=== PATIENT | female | born 1940 | race Caucasian/White ===

== ENCOUNTER → 2016-10-19 | Outpatient (REF) | payer MEDICARE, OTHER ==
[~2016-10-19] MED LIST: ASPI1TAB PO; CALCTAB23 PO; CELE1CAP9 PO; FLUO20CA9 PO; IMIP50TA2 PO; LIOT5TAB PO; PERC5TAB6 PO; SYNT50TA PO; VITA20008 PO; ZOCO40TA PO
== END ==
LOC: M SFHCPLAZ 10:35
PROVIDERS: ATTEND Family Medicine
DX: E55.9 Vitamin D deficiency, unspecified (principal)

== ENCOUNTER → 2017-03-13 | Outpatient (REF) | payer MEDICARE, OTHER ==
[~2017-03-13] MED LIST changes: +CALC1TAB60 PO; -CALCTAB23 PO; +FLUO20CA19 PO; -FLUO20CA9 PO; -IMIP50TA2 PO; +IMIP50TA3 PO; +PERC5TAB12 PO; -PERC5TAB6 PO
[2017-03-13 11:54] LABS: BASO # 0.1 K/mm3 (0.0-0.2); EOS # 0.5 K/mm3 (0.0-0.50); EOS % 8.3 % (0.0-3.0); LARGE UNSTAINED CELL # 0.1 K/mm3 (0.0-0.4); LARGE UNSTAINED CELL % 1.5 % (0.0-4.0); LYMPH # 1.4 K/mm3 (1.5-4.5); LYMPH % 24.4 % (24.0-44.0); MEAN CORPUSCULAR HEMOGLOBIN 29.2 pg (27.0-33.0); MEAN CORPUSCULAR HGB CONC 31.8 g/dl (32.0-36.5); MEAN CORPUSCULAR VOLUME 91.7 fl (80.0-96.0); MONO # 0.2 K/mm3 (0.0-0.8); MONO % 4.1 % (0.0-5.0); NEUTROPHILS # 3.4 K/mm3 (1.8-7.7); NEUTROPHILS % 60.6 % (36.0-66.0); PLATELET COUNT, AUTOMATED 271 k/mm3 (150-450); RED CELL DISTRIBUTION WIDTH 13.1 % (11.5-14.5); WHITE BLOOD COUNT 5.6 K/mm3 (4.0-10.0)
[2017-03-13 12:22] LABS: VITAMIN B12 LEVEL 322 PG/ML (247-911)
[2017-03-13 12:27] LABS: ALBUMIN 3.6 GM/DL (3.2-5.2); ALBUMIN/GLOBULIN RATIO 1.24 (1.00-1.93); ALKALINE PHOSPHATASE 111 U/L (45-117); ALT/SGPT 34 U/L (12-78); ANION GAP 8 MEQ/L (8-16); AST/SGOT 22 U/L (15-37); BILIRUBIN,TOTAL 0.4 MG/DL (0.2-1.0); BLOOD UREA NITROGEN 14 MG/DL (7-18); CALCIUM LEVEL 9.3 MG/DL (8.8-10.2); CARBON DIOXIDE LEVEL 31 MEQ/L (21-32); CHLORIDE LEVEL 102 MEQ/L (98-107); CREATININE FOR GFR 0.64 MG/DL (0.55-1.02); FREE T4 0.69 NG/DL (0.76-1.46); GLOMERULAR FILTRATION RATE > 60.0 (>39); GLUCOSE, FASTING 91 MG/DL (83-110); POTASSIUM SERUM 4.3 MEQ/L (3.5-5.1); SODIUM LEVEL 141 MEQ/L (136-145); TOTAL PROTEIN 6.5 GM/DL (6.4-8.2)
== END ==
LOC: M SFHCPLAZ 10:09
PROVIDERS: ATTEND Family Medicine
DX: E55.9 Vitamin D deficiency, unspecified (principal); E03.9 Hypothyroidism, unspecified; F32.9 Major depressive disorder, single episode, unspecified

== ENCOUNTER → 2017-05-29 | Outpatient (REF) | payer MEDICARE, OTHER ==
[2017-05-29 16:01] LABS: BASO # 0.1 10^3/uL (0.0-0.2); BASO % 0.9 % (0.0-1.0); EOS # 0.3 10^3/uL (0.0-0.50); EOS % 4.5 % (0.0-3.0); IMMATURE GRANULOCYTE % 0.3 % (0-0); LYMPH # 1.4 10^3/uL (1.5-4.5); LYMPH % 20.8 % (24.0-44.0); MEAN CORPUSCULAR HEMOGLOBIN 29.7 pg (27.0-33.0); MEAN CORPUSCULAR VOLUME 92.9 fl (80.0-96.0); MONO # 0.5 10^3/uL (0.0-0.8); MONO % 7.3 % (0.0-5.0); NEUTROPHILS # 4.5 10^3/uL (1.8-7.7); NEUTROPHILS % 66.2 % (36.0-66.0); PLATELET COUNT, AUTOMATED 324 10^3/uL (150-450); RED CELL DISTRIBUTION WIDTH 13.5 % (11.5-14.5); WHITE BLOOD COUNT 6.7 10^3/uL (4.0-10.0)
[2017-05-29 16:34] LABS: FREE T4 0.96 NG/DL (0.76-1.46); PERCENT SATURATION 23.6 % (13.2-45.0)
[2017-05-30 10:41] LABS: PRETREATED FOLATE FOR RBCFOL 19.2 NG/ML
== END ==
LOC: M SFHCPLAZ 10:49
PROVIDERS: ATTEND Family Medicine
DX: E53.8 Deficiency of other specified B group vitamins (principal); E03.9 Hypothyroidism, unspecified; E78.2 Mixed hyperlipidemia

== ENCOUNTER → 2017-07-13 | Outpatient (CLI) | payer MEDICARE, OTHER ==
--- NOTE | 2017-07-13 16:13 | REPMRS ---
Patient History The patient states she has not had a clinical breast exam in over a year. Patient is postmenopausal and is nulliparous. Family history of endometrial cancer in maternal cousin at age 60. Digital Woman Screen Mammo: July 13, 2017 - Exam #: [id number] Bilateral CC and MLO view(s) were taken. Technologist: Ariadna Batista, Technologist Prior study comparison: June 23, 2016, digital woman screen mammo performed at [facility]. June 17, 2015, digital woman screen mammo performed at [facility]. June 23, 2014, digital woman screen mammo performed at [facility]. FINDINGS: There are scattered fibroglandular densities. There is a moderate amount of residual fibroglandular tissue which is fairly symmetric. There is no interval development of dominant mass, architectural distortion, or clustered microcalcification typical of malignancy. There has been no change in the appearance of the mammogram from the prior studies. ASSESSMENT: BI-RADS/ACR category 1 mammogram. Negative. Recommendation Routine screening mammogram of both breasts in 1 year (for women over age 40). This mammogram was interpreted with the aid of an FDA-approved computer-aided dectection system. Electronically Signed By: Geoff Hawkins MD 07/13/17 [id number]
== END ==
LOC: M WHC 14:55
PROVIDERS: ATTEND Family Medicine
DX: Z12.31 Encounter for screening mammogram for malignant neoplasm of breast (principal)

== ENCOUNTER → 2017-11-16 | Outpatient (REF) | payer MEDICARE, OTHER ==
[2017-11-16 15:45] LABS: BASO # 0.1 10^3/uL (0.0-0.2); BASO % 0.8 % (0.0-1.0); EOS # 0.9 10^3/uL (0.0-0.50); HEMATOCRIT 41.5 % (36.0-47.0); HEMOGLOBIN 13.3 g/dl (12.0-15.5); IMMATURE GRANULOCYTE % 0.2 % (0-3.0); LYMPH # 1.4 10^3/uL (1.5-4.5); LYMPH % 20.6 % (24.0-44.0); MEAN CORPUSCULAR HEMOGLOBIN 29.2 pg (27.0-33.0); MONO # 0.4 10^3/uL (0.0-0.8); MONO % 6.6 % (0.0-5.0); NEUTROPHILS # 3.9 10^3/uL (1.8-7.7); NEUTROPHILS % 58.8 % (36.0-66.0); PLATELET COUNT, AUTOMATED 321 10^3/uL (150-450); RED BLOOD COUNT 4.56 10^6/uL (4.00-5.40); RED CELL DISTRIBUTION WIDTH 13.4 % (11.5-14.5); WHITE BLOOD COUNT 6.6 10^3/uL (4.0-10.0)
[2017-11-16 16:13] LABS: PTH INTACT 53.3 PG/ML (18.5-88.0); TOTAL 25(OH) VITAMIN D 49.2 NG/ML (30.0-100.0)
[2017-11-16 16:19] LABS: ALBUMIN 3.6 GM/DL (3.2-5.2); ALKALINE PHOSPHATASE 124 U/L (45-117); ALT/SGPT 33 U/L (12-78); ANION GAP 5 MEQ/L (8-16); AST/SGOT 22 U/L (7-37); BILIRUBIN,TOTAL 0.4 MG/DL (0.2-1.0); BLOOD UREA NITROGEN 18 MG/DL (7-18); CALCIUM LEVEL 9.2 MG/DL (8.8-10.2); CARBON DIOXIDE LEVEL 32 MEQ/L (21-32); CHLORIDE LEVEL 107 MEQ/L (98-107); CREATININE FOR GFR 0.58 MG/DL (0.55-1.30); FERRITIN 61 NG/ML (8-252); FREE T4 0.84 NG/DL (0.76-1.46); GLOMERULAR FILTRATION RATE > 60.0 (>39); GLUCOSE, FASTING 90 MG/DL (70-100); IRON (FE) 95 UG/DL (50-170); POTASSIUM SERUM 4.4 MEQ/L (3.5-5.1); SODIUM LEVEL 144 MEQ/L (136-145); THYROID STIMULATING HORMONE 0.614 uIU/ML (0.358-3.740); TOTAL IRON BINDING CAPACITY 352 UG/DL (250-450); TOTAL PROTEIN 6.6 GM/DL (6.4-8.2)
[2017-11-25 09:47] LABS: DESIPRAMINE 179 ng/mL (Not Estab.); IMIPRAMINE 232 ng/mL (Not Estab.); TOTAL IMIPRAMINE 411 ng/mL (175-300)
== END ==
LOC: M SFHCPLAZ 10:45
DX: E53.8 Deficiency of other specified B group vitamins (principal); E55.9 Vitamin D deficiency, unspecified; E03.9 Hypothyroidism, unspecified; F32.9 Major depressive disorder, single episode, unspecified
CPT/HCPCS: 83550

== ENCOUNTER → 2018-03-05 | Outpatient (REF) | payer MEDICARE, OTHER ==
[2018-03-05 13:57] LABS: BASO # 0.1 10^3/uL (0.0-0.2); BASO % 0.8 % (0.0-1.0); EOS # 0.7 10^3/uL (0.0-0.50); HEMATOCRIT 43.8 % (36.0-47.0); HEMOGLOBIN 14.1 g/dl (12.0-15.5); IMMATURE GRANULOCYTE % 0.3 % (0-3.0); LYMPH # 1.7 10^3/uL (1.5-4.5); LYMPH % 22.4 % (24.0-44.0); MEAN CORPUSCULAR HEMOGLOBIN 28.8 pg (27.0-33.0); MEAN CORPUSCULAR HGB CONC 32.2 g/dl (32.0-36.5); MEAN CORPUSCULAR VOLUME 89.6 fl (80.0-96.0); MONO # 0.5 10^3/uL (0.0-0.8); MONO % 6.2 % (0.0-5.0); NEUTROPHILS # 4.6 10^3/uL (1.8-7.7); NEUTROPHILS % 61.3 % (36.0-66.0); PLATELET COUNT, AUTOMATED 326 10^3/uL (150-450); RED BLOOD COUNT 4.89 10^6/uL (4.00-5.40); RED CELL DISTRIBUTION WIDTH 13.5 % (11.5-14.5); RETIC HEMOGLOBIN EQUIVALENT 33.7 pg (24-36); RETICULOCYTE # 95.8 10^9/L (17-77); WHITE BLOOD COUNT 7.4 10^3/uL (4.0-10.0)
[2018-03-05 14:03] LABS: HEMATOCRIT 43.8 % (36.0-47.0)
[2018-03-05 14:36] LABS: VITAMIN B12 LEVEL > 2000 PG/ML (247-911)
[2018-03-05 14:41] LABS: FREE T4 0.77 NG/DL (0.76-1.46)
[2018-03-06 11:41] LABS: PRETREATED FOLATE FOR RBCFOL 19.7 NG/ML; RBC FOLATE 944.5 NG/ML (280-791)
[2018-03-08 00:09] LABS: DESIPRAMINE 211 ng/mL (Not Estab.); IMIPRAMINE 313 ng/mL (Not Estab.); TOTAL IMIPRAMINE 524 ng/mL (175-300)
== END ==
LOC: M SFHCPLAZ 11:22
DX: E53.8 Deficiency of other specified B group vitamins (principal); E03.9 Hypothyroidism, unspecified; F32.9 Major depressive disorder, single episode, unspecified
CPT/HCPCS: 84443

== ENCOUNTER → 2018-07-23 | Outpatient (REF) | payer MEDICARE, OTHER ==
[2018-07-23 13:31] LABS: BASO # 0.1 10^3/uL (0.0-0.2); EOS # 0.5 10^3/uL (0.0-0.50); EOS % 7.3 % (0.0-3.0); HEMATOCRIT 43.5 % (36.0-47.0); HEMOGLOBIN 14.3 g/dl (12.0-15.5); IMMATURE GRANULOCYTE % 0.2 % (0-3.0); LYMPH # 1.5 10^3/uL (1.5-4.5); LYMPH % 24.1 % (24.0-44.0); MEAN CORPUSCULAR HEMOGLOBIN 29.7 pg (27.0-33.0); MEAN CORPUSCULAR HGB CONC 32.9 g/dl (32.0-36.5); MEAN CORPUSCULAR VOLUME 90.4 fl (80.0-96.0); MONO # 0.4 10^3/uL (0.0-0.8); MONO % 6.8 % (0.0-5.0); NEUTROPHILS # 3.7 10^3/uL (1.8-7.7); NEUTROPHILS % 60.6 % (36.0-66.0); PLATELET COUNT, AUTOMATED 329 10^3/uL (150-450); RED BLOOD COUNT 4.81 10^6/uL (4.00-5.40); RETIC HEMOGLOBIN EQUIVALENT 33.6 pg (24-36); RETICULOCYTE # 98.1 10^9/L (17-77); WHITE BLOOD COUNT 6.2 10^3/uL (4.0-10.0)
[2018-07-23 13:47] LABS: ALBUMIN 3.4 GM/DL (3.2-5.2); ALBUMIN/GLOBULIN RATIO 1.06 (1.00-1.93); ALKALINE PHOSPHATASE 108 U/L (45-117); ALT/SGPT 26 U/L (12-78); ANION GAP 7 MEQ/L (8-16); AST/SGOT 21 U/L (7-37); BILIRUBIN,TOTAL 0.5 MG/DL (0.2-1.0); BLOOD UREA NITROGEN 17 MG/DL (7-18); C REACTIVE PROTEIN QUANTITATIV < 0.30 MG/DL (0.00-0.30); CARBON DIOXIDE LEVEL 29 MEQ/L (21-32); CHLORIDE LEVEL 104 MEQ/L (98-107); CHOLESTEROL LEVEL 180 MG/DL (<200); CPK CREATINE PHOSPHOKINASE 49 U/L (26-192); CREATININE FOR GFR 0.64 MG/DL (0.55-1.30); GLOMERULAR FILTRATION RATE > 60.0 (>32); GLUCOSE, FASTING 93 MG/DL (70-100); HDL CHOLESTEROL 59 MG/DL (>40); LDL CHOLESTEROL 106 MG/DL (<100); NON-HDL-C 121 MG/DL; POTASSIUM SERUM 4.7 MEQ/L (3.5-5.1); SODIUM LEVEL 140 MEQ/L (136-145); TOTAL PROTEIN 6.6 GM/DL (6.4-8.2); TRIGLYCERIDES LEVEL 73 MG/DL (<150)
== END ==
LOC: M SFHCPLAZ 11:04
DX: E53.8 Deficiency of other specified B group vitamins (principal); E78.2 Mixed hyperlipidemia; E55.9 Vitamin D deficiency, unspecified
CPT/HCPCS: 82550

== ENCOUNTER 2018-11-03 12:04 | Emergency (ER) | payer MEDICARE, OTHER ==
[~2018-11-03] VITALS: Ht 152.4 cm; Wt 65.5 kg
[2018-11-03] MEDS ORDERED: LORA0.5T11 PO (12:13)
[2018-11-03] MEDS ORDERED: ONDANSETRON 4MG/2ML VIAL (J2405) IV ONE (12:45)
[2018-11-03] MEDS ORDERED: NS 1,000 ML IV ONE (12:45)
[2018-11-03 13:01] LABS: BASO % 0.1 % (0.0-1.0); HEMATOCRIT 39.8 % (36.0-47.0); HEMOGLOBIN 13.5 g/dl (12.0-15.5); LYMPH # 0.4 10^3/uL (1.5-4.5); LYMPH % 5.5 % (24.0-44.0); MEAN CORPUSCULAR HEMOGLOBIN 29.8 pg (27.0-33.0); MEAN CORPUSCULAR HGB CONC 33.9 g/dl (32.0-36.5); MEAN CORPUSCULAR VOLUME 87.9 fl (80.0-96.0); MONO # 0.2 10^3/uL (0.0-0.8); NEUTROPHILS # 7.3 10^3/uL (1.8-7.7); NEUTROPHILS % 90.9 % (36.0-66.0); PLATELET COUNT, AUTOMATED 277 10^3/uL (150-450); RED BLOOD COUNT 4.53 10^6/uL (4.00-5.40)
[2018-11-03 13:31] LABS: ALBUMIN 3.1 GM/DL (3.2-5.2); ALT/SGPT 22 U/L (12-78); BILIRUBIN,DIRECT 0.1 MG/DL (0.0-0.2); BILIRUBIN,TOTAL 0.5 MG/DL (0.2-1.0); BLOOD UREA NITROGEN 24 MG/DL (7-18); CALCIUM LEVEL 8.4 MG/DL (8.8-10.2); CARBON DIOXIDE LEVEL 26 MEQ/L (21-32); CHLORIDE LEVEL 99 MEQ/L (98-107); CREATININE FOR GFR 0.63 MG/DL (0.55-1.30); GLOMERULAR FILTRATION RATE > 60.0 (>32); GLUCOSE, FASTING 102 MG/DL (70-100); LIPASE 39 U/L (73-393); POTASSIUM SERUM 3.8 MEQ/L (3.5-5.1); SODIUM LEVEL 132 MEQ/L (136-145); TOTAL PROTEIN 5.5 GM/DL (6.4-8.2)
[2018-11-03 13:36] LABS: INFLUENZA A AMPLIFICATION NEGATIVE (NEGATIVE); INFLUENZA B AMPLIFICATION NEGATIVE (NEGATIVE)
[2018-11-03 16:21] VITALS: BP 141/82
[2018-11-03] MEDS ORDERED: ONDA4TAB6 PO (16:36)
[2018-11-03] MEDS ORDERED: KEFL500C17 PO (16:36)
== END 2018-11-03 16:51 | disposition home or self-care (01) ==
LOC: M ED 12:04
DX: N39.0 Urinary tract infection, site not specified (principal); E86.0 Dehydration; R79.9 Abnormal finding of blood chemistry, unspecified; E78.5 Hyperlipidemia, unspecified; E03.9 Hypothyroidism, unspecified; F33.9 Major depressive disorder, recurrent, unspecified; F41.9 Anxiety disorder, unspecified; Z79.899 Other long term (current) drug therapy; Z79.82 Long term (current) use of aspirin; Z79.890 Hormone replacement therapy
CPT/HCPCS: 80048; 80076; 81001; 83690; 85025; 87086; 87502; 96361; 96374; 99284; J2405

== ENCOUNTER 2018-11-06 09:18 | Inpatient (IN) | payer MEDICARE, OTHER ==
[~2018-11-06] VITALS: Ht 149.9 cm; Wt 92.2 kg
[~2018-11-06 09:18] MED LIST changes: +KEFL500C17 PO; +LORA0.5T11 PO; +ONDA4TAB6 PO
[2018-11-06] MEDS ORDERED: LEVO75TA4 PO (09:33)
[2018-11-06 11:00] LABS: HEMATOCRIT 42.2 % (36.0-47.0); HEMOGLOBIN 14.1 g/dl (12.0-15.5); MEAN CORPUSCULAR VOLUME 86.8 fl (80.0-96.0); RED BLOOD COUNT 4.86 10^6/uL (4.00-5.40); WHITE BLOOD COUNT 7.4 10^3/uL (4.0-10.0)
[2018-11-06 11:01] LABS: BASO % 0.3 % (0.0-1.0); EOS % 0.5 % (0.0-3.0); LYMPH # 1.3 10^3/uL (1.5-4.5); LYMPH % 17.6 % (24.0-44.0); MEAN CORPUSCULAR HGB CONC 33.4 g/dl (32.0-36.5); MONO # 0.6 10^3/uL (0.0-0.8); MONO % 7.6 % (0.0-5.0); NEUTROPHILS # 5.4 10^3/uL (1.8-7.7); NEUTROPHILS % 73.6 % (36.0-66.0); PLATELET COUNT, AUTOMATED 312 10^3/uL (150-450)
[2018-11-06 11:22] LABS: ALBUMIN 3.4 GM/DL (3.2-5.2); ALT/SGPT 55 U/L (12-78); AMYLASE 32 U/L (25-115); BILIRUBIN,DIRECT < 0.1 MG/DL (0.0-0.2); BILIRUBIN,TOTAL 0.4 MG/DL (0.2-1.0); BLOOD UREA NITROGEN 13 MG/DL (7-18); CALCIUM LEVEL 8.6 MG/DL (8.8-10.2); CARBON DIOXIDE LEVEL 24 MEQ/L (21-32); CHLORIDE LEVEL 103 MEQ/L (98-107); CREATININE FOR GFR 0.58 MG/DL (0.55-1.30); GLOMERULAR FILTRATION RATE > 60.0 (>32); GLUCOSE, FASTING 91 MG/DL (70-100); LIPASE 60 U/L (73-393); POTASSIUM SERUM 2.8 MEQ/L (3.5-5.1); SODIUM LEVEL 137 MEQ/L (136-145); TOTAL PROTEIN 6.7 GM/DL (6.4-8.2)
[2018-11-06] MEDS ORDERED: POTASSIUM CHLORIDE 10 MEQ SR TABLET PO ONE (11:45)
[2018-11-06 11:57] LABS: MAGNESIUM LEVEL 1.8 MG/DL (1.8-2.4)
[2018-11-06] MEDS ORDERED: KCL 40MEQ IN D5/0.45NS 1000ML 1,000 ML IV SCH (12:45)
[2018-11-06 13:33] LABS: CPK CREATINE PHOSPHOKINASE 373 U/L (26-192); MB/CK RELATIVE INDEX 3.65 (< OR =4); TROPONIN I < 0.02 NG/ML (< 0.10)
[2018-11-06] MEDS ORDERED: ONDANSETRON 4MG/2ML VIAL (J2405) IV PRN (14:15)
[2018-11-06] MEDS: NS 1,000 ML IV SCH (14:25)
[2018-11-06] MEDS: CIPROFLOXACIN 400 MG in APPROPRIATE DILUENT 1 EA IV SCH (14:38)
[2018-11-06] MEDS ORDERED: ZOCO40TA PO (14:39)
[2018-11-06] MEDS ORDERED: IMIP25TA3 PO (14:39)
[2018-11-06] MEDS ORDERED: BUPR100T3 PO (14:39)
--- NOTE | 2018-11-06 15:22 | HPE ---
DATE OF ADMISSION: 11/06/2018 This is an 78-year-old female with past medical history of hypothyroidism, hyperlipidemia who presents to the emergency room after suffering from watery diarrhea and nausea and vomiting for the past 5 days. The patient apparently went to see her primary care where she was given Keflex for a presumed urinary tract infection (UTI). She says she got better within a day or two but then started having nausea and vomiting again and the diarrhea persisted so she came to the emergency room (ER) for evaluation. She denies any subjective feeling of fever, aches, or chills or being around any sick contacts. In the ER, she was found to be hypokalemic, was given 40 of potassium chloride by mouth and then started on dextrose 5% (D5) 1/2 normal saline (NS) with 40 mEq of potassium chloride (KCl). She, at this time, feels mildly nauseous, has not had a bowel movement in the ER, but a gastrointestinal (GI) panel has been ordered as well as a repeat urinalysis and urine culture since the first culture done in the office was contaminated. She will be admitted for further management. Again, past medical history of hypothyroidism and hyperlipidemia type 2B, depression, anxiety. ALLERGIES: She has no known drug allergies. FAMILY HISTORY: Noncontributory. SOCIAL HISTORY: Patient denies tobacco, alcohol, or illicit drug use. MEDICATIONS: She takes at home are as follows: - aspirin 81 mg orally daily - bupropion 100 mg orally daily - calcium with vitamin D one tablet orally twice daily - cholecalciferol 2000 units orally daily - fluoxetine 20 mg orally in the evening - fluoxetine 40 mg orally in the morning - imipramine 25 mg orally twice daily - Synthroid 75 mcg orally daily - lorazepam 0.5 mg orally twice daily as needed - simvastatin 40 mg orally daily - celecoxib 200 mg orally daily - liothyronine 10 mcg orally daily Review of systems is negative for all ten major systems except what is mentioned in the history of present illness (HPI). Vital signs: Blood pressure is 150/78, heart rate is 88, regular, respiratory rate is 17, temperature 98.6, oxygen saturation 98% on room air. Head is atraumatic, normocephalic. Neck is supple, no jugular venous distention (JVD). Lungs are clear to auscultation. S1, S2 audible, no murmurs appreciated. Abdomen is soft, positive bowel sounds. No pedal edema. Skin intact. Neurologic examination: Patient is awake, alert, oriented times three. LABORATORY DATA: WBC 7.4, hemoglobin 14.1, hematocrit 42.2, platelets are 312,000, sodium 137, potassium 2.8, chloride 103, CO2 24, BUN 13, creatinine 0.58, lactic acid is 0.7, magnesium 1.8, AST 45, ALT 55, lipase is 60. Urinalysis strongly positive for UTI. IMPRESSION: 1. Urinary tract infection (UTI). 2. Viral gastroenteritis. PLAN: Patient will be admitted to the medical/surgical floor. I am going to start the patient on IV ciprofloxacin 400 IV every 12 hours. Will continue hydrating her with normal saline at 100 mL/hour. Will follow the gastrointestinal (GI) panel studies as well as the urine culture. I will give her IV Zofran for symptomatic relief and also will continue her preadmission medications and continue her care in the medical/surgical floor.
[2018-11-06 15:34] VITALS: BP 152/69
[2018-11-06 15:34] LABS: CPK CREATINE PHOSPHOKINASE 286 U/L (26-192); MAGNESIUM LEVEL 1.8 MG/DL (1.8-2.4); MB/CK RELATIVE INDEX 3.74 (< OR =4); TROPONIN I < 0.02 NG/ML (< 0.10)
--- NOTE | 2018-11-06 19:56 | ECGEPIP ---
Stationary ECG Study [facility] - ED Test Date: 2018-11-06 Pat Name: ALVARO MORRISSEY Department: Room: [place] [address] Gender: F Deli Department Manager: LIONEL : 1940 Requested By: AMADEO BOBO [facility] Order Number: [id number] Reading MD: Luke Veras Measurements Intervals Sanders Rate: 85 P: 64 CA: 155 QRS: -2 QRSD: 83 T: 29 QT: 392 QTc: 467 Interpretive Statements SINUS RHYTHM NSTTW ABNORMALITIES NO PRIORS FOR COMPARISON Electronically Signed On 11-06-2018 19:56:33 EDT by Luke Veras
[2018-11-06] MEDS: IMIPRAMINE 25 MG TAB PO SCH (20:08)
[2018-11-06] MEDS: CALCIUM/VITAMIN D 500 MG TAB PO SCH (20:08)
[2018-11-06] MEDS: SIMVASTATIN 40 MG TAB PO SCH (20:08)
[2018-11-06] MEDS: FLUoxetine 20 MG CAP PO SCH (20:08)
[2018-11-06 22:00] VITALS: BP 154/78
[2018-11-06] MEDS: LORazepam 0.5 MG TAB PO PRN (23:49)
[2018-11-07] MEDS: NS 1,000 ML IV SCH ×2 (01:00→12:35)
[2018-11-07] MEDS: CIPROFLOXACIN 400 MG in APPROPRIATE DILUENT 1 EA IV SCH (03:06)
[2018-11-07 06:00] VITALS: BP 150/79
[2018-11-07] MEDS: LEVOTHYROXINE 75MCG TABLET (0.075MG) PO SCH (06:07)
[2018-11-07 06:18] LABS: BLOOD UREA NITROGEN 5 MG/DL (7-18); CALCIUM LEVEL 8.3 MG/DL (8.8-10.2); CARBON DIOXIDE LEVEL 29 MEQ/L (21-32); CHLORIDE LEVEL 106 MEQ/L (98-107); CREATININE FOR GFR 0.58 MG/DL (0.55-1.30); GLOMERULAR FILTRATION RATE > 60.0 (>32); GLUCOSE, FASTING 98 MG/DL (70-100); POTASSIUM SERUM 3.2 MEQ/L (3.5-5.1); SODIUM LEVEL 141 MEQ/L (136-145)
--- NOTE | 2018-11-07 07:53 | IPNPDOC ---
Subjective Date Seen The patient was seen on 11/07/18. Subjective Chief Complaint/HPI Admitted overnight for UTI, gastroenteritis and hypokalemia. Given IV and po supplementation for potassium. Had some confusion on presentation, which has resolved. c/o cold chills, diarrhea Constitutional: Reports: Chills, Weakness, Fatigue Pulmonary: Denies: Dyspnea, Cough Cardiovascular: Denies: Chest Pain, Palpitations, Orthopnea Gastrointestinal: Reports: Abdominal Pain, Diarrhea; Denies: Nausea, Vomiting Genitourinary: Denies: Dysuria, Frequency, Incontinence Psych: Reports: Mood Normal Objective Physical Examination General Exam: Positive: Alert, No Acute Distress Neck Exam: Positive: Supple; Negative: JVD, thyromegaly Chest Exam: Positive: Clear to auscultation, Normal air movement Heart Exam: Positive: Rate Normal, Regular Rhythm, Normal S1, Normal S2; Negative: Murmurs, Rubs Telemetry: Positive: No significant arrhythmia Abdomen Exam: Positive: Normal bowel sounds, Soft; Negative: Tenderness, Hepatospenomegaly Psych Exam: Positive: Mental status NL, Mood NL, Oriented x 3 Assessment /Plan Problems (1) Norovirus Status: Acute Problem Text: + for norovirus on GI panel. Contact precautions in place. Encouraged po intake. advance diet as tolerated. (2) Hypokalemia Status: Acute Problem Text: Potassium level of 2.8 on admission. 3.2 today. will replace another 40 meq po. (3) UTI (urinary tract infection) Status: Acute Problem Text: day#2 IV Cipro (4) Depression Status: Chronic Problem Text: On home dosing of Fluoxetine and Imipramine. Buproprion was ordered by biostatistics director. I clarified with patient that she has not been taking this medication. (5) Hyperlipidemia Status: Chronic (6) Hypothyroidism Status: Chronic Problem Text: on home dose of Levothyroxine Plan/VTE VTE Prophylaxis Ordered?: Yes (Heparin ) VS, I&O, 24H, Fishbone Vital Signs/I&O Vital Signs Date Time Temp Pulse Resp B/P (MAP) Pulse Ox O2 Delivery O2 Flow Rate FiO2 11/07/18 06:00 97.7 101 18 150/79 (102) 95 11/06/18 14:37 Room Air I&O- Last 24 Hours up to 6 AM 11/07/18 06:00 Intake Total 1300 ml Output Total 850 ml Balance 450 ml Laboratory Data 24H LABS Laboratory Tests 2 11/06/18 10:48: Immature Granulocyte % (Auto) 0.4, White Blood Count 7.4, Red Blood Count 4.86, Hemoglobin 14.1, Hematocrit 42.2, Mean Corpuscular Volume 86.8, Mean Corpuscular Hemoglobin 29.0, Mean Corpuscular Hemoglobin Concent 33.4, Red Cell Distribution Width 12.6, Platelet Count 312, Neutrophils (%) (Auto) 73.6H, Lymphocytes (%) (Auto) 17.6L, Monocytes (%) (Auto) 7.6H, Eosinophils (%) (Auto) 0.5, Basophils (%) (Auto) 0.3, Neutrophils # (Auto) 5.4, Lymphocytes # (Auto) 1.3L, Monocytes # (Auto) 0.6, Eosinophils # (Auto) 0.0, Basophils # (Auto) 0.0, Nucleated Red Blood Cells % (auto) 0.0, Anion Gap 10, Glomerular Filtration Rate > 60.0, Lacti c Acid Level 0.7, Calcium Level 8.6L, Magnesium Level 1.8, Aspartate Amino Transf (AST/SGOT) 45H, Alanine Aminotransferase (ALT/SGPT) 55, Alkaline Phosphatase 95, Total Bilirubin 0.4, Direct Bilirubin < 0.1, Total Creatine Kinase 373H, Creatine Kinase MB 14.0H, Creatine Kinase MB Relative Index 3.65, Troponin I < 0.02, Total Protein 6.7#, Albumin 3.4, Albumin/Globulin Ratio 1.03, Amylase Level 32, Lipase 60L 11/06/18 11:15: Urine Color YELLOW, Urine Appearance TURBIDH, Urine pH 5.0, Urine Specific [place] 1.016, Urine Protein NEGATIVE, Urine Glucose (UA) NEGATIVE, Urine Ke tones 2+H, Urine Blood 2+H, Urine Nitrite NEGATIVE, Urine Bilirubin NEGATIVE, Urine Urobilinogen 2.0H, Urine Leukocyte Esterase 1+H, Urine WBC (Auto) 48H, Urine RBC (Auto) 7H, Urine Hyaline Casts (Auto) 0, Urine Bacteria (Auto) 3+H, Urine Squamous Epithelial Cells 2, Urine Amorphous Sediment MODERATEH, Urine Mucus (Auto) SMALL, Urine Sperm (Auto) 11/06/18 14:47: Magnesium Level 1.8, Total Creatine Kinase 286H, Creatine Kinase MB 11.0H, Creatine Kinase MB Relative Index 3.74, Troponin I < 0.02 11/07/18 05:34: Anion Gap 6L, Glomerular Filtration Rate > 60.0, Calcium Level 8.3L, Blood Urea Nitrogen 5#L, Creatinine 0.58, Sodium Level 141, Potassium Level 3.2L, Chloride Level 106, Carbon Dioxide Level 29 CBC/BMP Laboratory Tests 11/06/18 10:48 Red Blood Count 4.86, Mean Corpuscular Volume 86.8, Mean Corpuscular Hemoglobin 29.0, Mean Corpuscular Hemoglobin Concent 33.4, Red Cell Distribution Width 12.6, Neutrophils (%) (Auto) 73.6 H, Lymphocytes (%) (Auto) 17.6 L, Monocytes (%) (Auto) 7.6 H, Eosinophils (%) (Auto) 0.5, Basophils (%) (Auto) 0.3, Neutrophils # (Auto) 5.4, Lymphocytes # (Auto) 1.3 L, Monocytes # (Auto) 0.6, Eo sinophils # (Auto) 0.0, Basophils # (Auto) 0.0 11/07/18 05:34 Calcium Level 8.3 L Microbiology Microbiology 11/06/18 Gastrointestinal Tract Panel (PCR) - Final, Complete Norovirus 11/06/18 Urine Culture, Received Pending Sammie Adkins [facility] Nov 07, 2018 07:53
[2018-11-07] MEDS ORDERED: POTASSIUM CHLORIDE 10 MEQ SR TABLET PO ONE (08:00)
[2018-11-07] MEDS: CALCIUM/VITAMIN D 500 MG TAB PO SCH ×2 (08:11→21:59)
[2018-11-07] MEDS: IMIPRAMINE 25 MG TAB PO SCH ×2 (08:11→22:06)
[2018-11-07] MEDS: VITAMIN D 1,000 INTERNATIONAL UNITS TABLET PO SCH (08:11)
[2018-11-07] MEDS: FLUoxetine 20 MG CAP PO SCH ×2 (08:11→22:00)
[2018-11-07] MEDS: HEPARIN SOD (PORCINE) 5000 UNITS/ML VIAL SQ SCH ×2 (08:12→22:00)
[2018-11-07] MEDS: LORazepam 0.5 MG TAB PO PRN ×2 (08:24→21:59)
[2018-11-07] MEDS ORDERED: ASPIRIN 81 MG ENTERIC TAB PO SCH (09:00)
[2018-11-07] MEDS ORDERED: buPROPion (WELLBUTRIN SR) 100 MG SR TAB PO SCH (09:00)
[2018-11-07 14:00] VITALS: BP 162/66
[2018-11-07] MEDS: KCL 20MEQ IN 0.45NS 1000ML 1,000 ML IV SCH (17:00)
[2018-11-07 22:00] VITALS: BP 138/83
[2018-11-07] MEDS: SIMVASTATIN 40 MG TAB PO SCH (22:00)
[2018-11-08] MEDS: KCL 20MEQ IN 0.45NS 1000ML 1,000 ML IV SCH (05:52)
[2018-11-08] MEDS: LEVOTHYROXINE 75MCG TABLET (0.075MG) PO SCH (05:52)
[2018-11-08 06:00] VITALS: BP 159/73
[2018-11-08 06:13] LABS: BASO % 0.6 % (0.0-1.0); EOS # 0.3 10^3/uL (0.0-0.50); EOS % 4.2 % (0.0-3.0); HEMOGLOBIN 13.5 g/dl (12.0-15.5); LYMPH # 1.8 10^3/uL (1.5-4.5); LYMPH % 25.7 % (24.0-44.0); MEAN CORPUSCULAR HEMOGLOBIN 29.2 pg (27.0-33.0); MEAN CORPUSCULAR HGB CONC 32.9 g/dl (32.0-36.5); MEAN CORPUSCULAR VOLUME 88.6 fl (80.0-96.0); MONO # 0.6 10^3/uL (0.0-0.8); MONO % 7.9 % (0.0-5.0); NEUTROPHILS # 4.3 10^3/uL (1.8-7.7); NEUTROPHILS % 61.3 % (36.0-66.0); PLATELET COUNT, AUTOMATED 315 10^3/uL (150-450); RED BLOOD COUNT 4.63 10^6/uL (4.00-5.40); WHITE BLOOD COUNT 6.9 10^3/uL (4.0-10.0)
[2018-11-08 06:43] LABS: BLOOD UREA NITROGEN 3 MG/DL (7-18); CALCIUM LEVEL 8.5 MG/DL (8.8-10.2); CARBON DIOXIDE LEVEL 32 MEQ/L (21-32); CHLORIDE LEVEL 105 MEQ/L (98-107); CREATININE FOR GFR 0.54 MG/DL (0.55-1.30); GLOMERULAR FILTRATION RATE > 60.0 (>32); GLUCOSE, FASTING 100 MG/DL (70-100); POTASSIUM SERUM 3.9 MEQ/L (3.5-5.1); SODIUM LEVEL 142 MEQ/L (136-145)
--- NOTE | 2018-11-08 08:14 | IPNPDOC ---
Subjective Date Seen The patient was seen on 11/08/18. Subjective Chief Complaint/HPI Diarrhea has slowed. Declined PT yesterday. Tolerating po. Constitutional: Denies: Chills, Fever, Night Sweats Pulmonary: Denies: Dyspnea, Cough Cardiovascular: Denies: Chest Pain, Palpitations, Orthopnea, Paroxysmal Noc. Dyspnea, Lt Headedness Gastrointestinal: Denies: Nausea, Vomiting, Abdominal Pain, Diarrhea, Constipation Objective Physical Examination General Exam: Positive: Alert, No Acute Distress Neck Exam: Positive: Supple; Negative: JVD, thyromegaly Chest Exam: Positive: Clear to auscultation, Normal air movement Heart Exam: Positive: Rate Normal, Regular Rhythm, Normal S1, Normal S2; Negative: Murmurs, Rubs Telemetry: Positive: No significant arrhythmia Abdomen Exam: Positive: Normal bowel sounds, Soft; Negative: Tenderness, Hepatospenomegaly Psych Exam: Positive: Mental status NL, Mood NL, Oriented x 3 Assessment /Plan Problems (1) Norovirus Status: Acute Problem Text: 11/08/18: improving. PT/OT eval today, anticipate DC today/tomorrow. + for norovirus on GI panel. Contact precautions in place. Encouraged po intake. advance diet as tolerated. (2) Hypokalemia Status: Acute Problem Text: Potassium level of 2.8 on admission. 3.2 today. will replace another 40 meq po. (3) UTI (urinary tract infection) Status: Acute Problem Text: day#2 IV Cipro (4) Depression Status: Chronic Problem Text: On home dosing of Fluoxetine and Imipramine. Buproprion was ordered by commercial solar sales consultant. I clarified with patient that she has not been taking this medication. (5) Hyperlipidemia Status: Chronic (6) Hypothyroidism Status: Chronic Problem Text: on home dose of Levothyroxine Plan/VTE VTE Prophylaxis Ordered?: Yes (Heparin ) VS, I&O, 24H, Fishbone Vital Signs/I&O Vital Signs Date Time Temp Pulse Resp B/P (MAP) Pulse Ox O2 Delivery O2 Flow Rate FiO2 11/08/18 06:00 98.4 88 18 159/73 (101) 96 11/06/18 14:37 Room Air I&O- Last 24 Hours up to 6 AM 11/08/18 06:00 Intake Total 2620 ml Output Total 1550 ml Balance 1070 ml Laboratory Data 24H LABS Laboratory Tests 2 11/08/18 05:25: Immature Granulocyte % (Auto) 0.3, White Blood Count 6.9, Red Blood Count 4.63, Hemoglobin 13.5, Hematocrit 41.0, Mean Corpuscular Volume 88.6, Mean Corpuscular Hemoglobin 29.2, Mean Corpuscular Hemoglobin Concent 32.9, Red Cell Distribution Width 12.7, Platelet Count 315, Neutrophils (%) (Auto) 61.3, Lymphocytes (%) (Auto) 25.7, Monocytes (%) (Auto) 7.9H, Eosinophils (%) (Auto) 4.2H, Basophils (%) (Auto) 0.6, Neutrophils # (Auto) 4.3, Lymphocytes # (Auto) 1.8, Monocytes # (Auto) 0.6, Eosinophils # (Auto) 0.3, Basophils # (Auto) 0.0, Nucleated Red Blood Cells % (auto) 0.0, Anion Gap 5L, Glomerular Filtration Rate > 60.0, Blood Urea Nitrogen 3L, Creatinine 0.54L, Sodium Level 142, Potassium Level 3.9#, Chloride Level 105, Carbon Dioxide Level 32, Calcium Level 8.5L CBC/BMP Laboratory Tests 11/08/18 05:25 Red Blood Count 4.63, Mean Corpuscular Volume 88.6, Mean Corpuscular Hemoglobin 29.2, Mean Corpuscular Hemoglobin Concent 32.9, Red Cell Distribution Width 12.7, Neutrophils (%) (Auto) 61.3, Lymphocytes (%) (Auto) 25.7, Monocytes (%) (Auto) 7.9 H, Eosinophils (%) (Auto) 4.2 H, Basophils (%) (Auto) 0.6, Neutrophils # (Auto) 4.3, Lymphocytes # (Auto) 1.8, Monocytes # (Auto) 0.6, Eosinophils # (Auto) 0.3, Basophils # (Auto) 0.0, Calcium Level 8.5 L Microbiology Microbiology 11/06/18 Gastrointestinal Tract Panel (PCR) - Final, Complete Norovirus 11/06/18 Urine Culture - Final, Complete Sammie Adkins Nov 08, 2018 08:14
[2018-11-08] MEDS: IMIPRAMINE 25 MG TAB PO SCH ×2 (09:39→20:14)
[2018-11-08] MEDS: CALCIUM/VITAMIN D 500 MG TAB PO SCH ×2 (09:39→20:14)
[2018-11-08] MEDS: HEPARIN SOD (PORCINE) 5000 UNITS/ML VIAL SQ SCH ×2 (09:40→20:14)
[2018-11-08] MEDS: FLUoxetine 20 MG CAP PO SCH ×2 (09:40→20:14)
[2018-11-08] MEDS: VITAMIN D 1,000 INTERNATIONAL UNITS TABLET PO SCH (09:40)
[2018-11-08 14:00] VITALS: BP 160/70
[2018-11-08] MEDS: LORazepam 0.5 MG TAB PO PRN (20:14)
[2018-11-08] MEDS: SIMVASTATIN 40 MG TAB PO SCH (20:14)
[2018-11-08 22:00] VITALS: BP 159/86
[2018-11-09 05:59] LABS: HEMATOCRIT 42.5 % (36.0-47.0); MEAN CORPUSCULAR HEMOGLOBIN 28.6 pg (27.0-33.0); MEAN CORPUSCULAR HGB CONC 32.9 g/dl (32.0-36.5); MEAN CORPUSCULAR VOLUME 86.7 fl (80.0-96.0); PLATELET COUNT, AUTOMATED 361 10^3/uL (150-450); WHITE BLOOD COUNT 8.1 10^3/uL (4.0-10.0)
[2018-11-09 06:00] VITALS: BP 123/70
[2018-11-09] MEDS: LEVOTHYROXINE 75MCG TABLET (0.075MG) PO SCH (06:02)
[2018-11-09 06:19] LABS: ATYPICAL LYMPH 5 % (0-5); EOSINOPHILS 3 % (0-5); LYMPHOCYTES 25 % (16-52); NEUTROPHILS 67 % (35-75); PLATELET ESTIMATE NORMAL (NORMAL)
[2018-11-09 06:31] LABS: BLOOD UREA NITROGEN 6 MG/DL (7-18); CALCIUM LEVEL 8.8 MG/DL (8.8-10.2); CARBON DIOXIDE LEVEL 35 MEQ/L (21-32); CHLORIDE LEVEL 101 MEQ/L (98-107); GLOMERULAR FILTRATION RATE > 60.0 (>32); GLUCOSE, FASTING 106 MG/DL (70-100); POTASSIUM SERUM 3.3 MEQ/L (3.5-5.1); SODIUM LEVEL 141 MEQ/L (136-145)
[2018-11-09] MEDS ORDERED: ANALGESIC BALM CRM 120 GM TOP PRN (09:15)
[2018-11-09] MEDS: FLUoxetine 20 MG CAP PO SCH ×2 (09:26→20:35)
[2018-11-09] MEDS: HEPARIN SOD (PORCINE) 5000 UNITS/ML VIAL SQ SCH ×2 (09:26→20:36)
[2018-11-09] MEDS: CALCIUM/VITAMIN D 500 MG TAB PO SCH ×2 (09:26→20:35)
[2018-11-09] MEDS: VITAMIN D 1,000 INTERNATIONAL UNITS TABLET PO SCH (09:26)
[2018-11-09] MEDS: IMIPRAMINE 25 MG TAB PO SCH ×2 (11:23→20:35)
--- NOTE | 2018-11-09 11:33 | IPNPDOC ---
Subjective Date Seen The patient was seen on 11/09/18. Subjective Chief Complaint/HPI Diarrhea has essentially resolved. No further n/v or abd pain. Tolerating diet. No new complaints Her this morning - she was able to be with him in the same room overnight when he passed Constitutional: Denies: Chills, Fever Pulmonary: Denies: Dyspnea, Cough Cardiovascular: Denies: Chest Pain, Palpitations Gastrointestinal: Denies: Nausea, Vomiting, Abdominal Pain, Diarrhea, Constipation Objective Physical Examination General Exam: Positive: Alert, No Acute Distress Chest Exam: Positive: Clear to auscultation, Normal air movement Heart Exam: Positive: Rate Normal, Regular Rhythm, Normal S1, Normal S2; Negative: Murmurs, Rubs Abdomen Exam: Positive: Normal bowel sounds, Soft; Negative: Tenderness, Hepatospenomegaly Psych Exam: Positive: Mental status NL, Mood NL, Oriented x 3 Assessment /Plan Problems (1) Norovirus Status: Acute Problem Text: 11/09 - Clinically improved Replace K+, check mag 11/08/18: improving. PT/OT eval today, anticipate DC today/tomorrow. + for norovirus on GI panel. Contact precautions in place. Encouraged po intake. advance diet as tolerated. (2) Hypokalemia Status: Acute Problem Text: 11/09 - give further K+ today and check mag level (3) UTI (urinary tract infection) Status: Acute Problem Text: 11/09 - U/C no growth of clinical significance - Cipro d/c'd (4) Depression Status: Chronic Problem Text: On home dosing of Fluoxetine and Imipramine. Buproprion was o rdered by route jumper. I clarified with patient that she has not been taking this medication. (5) Hyperlipidemia Status: Chronic (6) Hypothyroidism Status: Chronic Problem Text: on home dose of Levothyroxine Plan/VTE VTE Prophylaxis Ordered?: Yes (Heparin ) Disposition Per PFS who spoke with family, she is unable to care for herself at home. They are in the process of determining if she can have 24 hour care vs AH placement They have requested ST cognitive eval VS, I&O, 24H, Fishbone Vital Signs/I&O Vital Signs Date Time Temp Pulse Resp B/P (MAP) Pulse Ox O2 Delivery O2 Flow Rate FiO2 11/09/18 06:00 97.0 84 18 123/70 (87) 96 11/06/18 14:37 Room Air I&O- Last 24 Hours up to 6 AM 11/09/18 06:00 Intake Total 730 ml Output Total 1000 ml Balance -270 ml Laboratory Data 24H LABS Laboratory Tests 2 11/09/18 05:27: Nucleated Red Blood Cells % (auto) 0.0, Neutrophils 67, Lymphocytes (Manual) 25, Eosinophils (Manual) 3, Atypical Lymphocytes 5, Platelet Estimate NORMAL, Red Blood Cell Morphology NORMAL, Anion Gap 5L, Glomerular Filtration Rate > 60.0, Blood Urea Nitrogen 6#L, Creatinine 0.60, Sodium Level 141, Potassium Level 3.3L, Chloride Level 101, Carbon Dioxide Level 35H, Calcium Level 8.8 CBC/BMP Laboratory Tests 11/09/18 05:27 Red Blood Count 4.90, Mean Corpuscular Volume 86.7, Mean Corpuscular Hemoglobin 28.6, Mean Corpuscular Hemoglobin Concent 32.9, Red Cell Distribution Width 12.5, Calcium Level 8.8 Microbiology Microbiology 11/06/18 Gastrointestinal Tract Panel (PCR) - Final, Complete Norovirus 11/06/18 Urine Culture - Final, Complete ARNIE BACON PA-C Nov 09, 2018 11:33
[2018-11-09] MEDS ORDERED: POTASSIUM CHLORIDE 10 MEQ SR TABLET PO ONE (12:00)
[2018-11-09 12:07] LABS: MAGNESIUM LEVEL 1.6 MG/DL (1.8-2.4)
[2018-11-09 14:00] VITALS: BP 137/67
[2018-11-09] MEDS: LORazepam 0.5 MG TAB PO PRN (20:35)
[2018-11-09] MEDS: SIMVASTATIN 40 MG TAB PO SCH (20:35)
[2018-11-09 22:00] VITALS: BP 153/87
[2018-11-10] MEDS: LEVOTHYROXINE 75MCG TABLET (0.075MG) PO SCH (05:54)
[2018-11-10 06:00] VITALS: BP 136/87
[2018-11-10 06:13] LABS: HEMATOCRIT 42.3 % (36.0-47.0); MEAN CORPUSCULAR HEMOGLOBIN 28.8 pg (27.0-33.0); MEAN CORPUSCULAR HGB CONC 33.1 g/dl (32.0-36.5); PLATELET COUNT, AUTOMATED 352 10^3/uL (150-450); RED BLOOD COUNT 4.86 10^6/uL (4.00-5.40); WHITE BLOOD COUNT 7.6 10^3/uL (4.0-10.0)
[2018-11-10 06:29] LABS: BLOOD UREA NITROGEN 10 MG/DL (7-18); CARBON DIOXIDE LEVEL 33 MEQ/L (21-32); CHLORIDE LEVEL 101 MEQ/L (98-107); CREATININE FOR GFR 0.68 MG/DL (0.55-1.30); GLOMERULAR FILTRATION RATE > 60.0 (>32); GLUCOSE, FASTING 110 MG/DL (70-100); POTASSIUM SERUM 4.6 MEQ/L (3.5-5.1); SODIUM LEVEL 139 MEQ/L (136-145)
[2018-11-10] MEDS ORDERED: MAGNESIUM CHLORIDE 64 MG TABCR (SLO MAG) PO ONE (09:00)
[2018-11-10] MEDS: HEPARIN SOD (PORCINE) 5000 UNITS/ML VIAL SQ SCH ×2 (10:35→20:40)
[2018-11-10] MEDS: VITAMIN D 1,000 INTERNATIONAL UNITS TABLET PO SCH (10:36)
[2018-11-10] MEDS: IMIPRAMINE 25 MG TAB PO SCH ×2 (10:36→20:40)
[2018-11-10] MEDS: FLUoxetine 20 MG CAP PO SCH ×2 (10:36→20:40)
[2018-11-10] MEDS: CALCIUM/VITAMIN D 500 MG TAB PO SCH ×2 (10:36→20:41)
[2018-11-10 14:00] VITALS: BP 126/79
--- NOTE | 2018-11-10 14:03 | IPNPDOC ---
Subjective Date Seen The patient was seen on 11/10/18. Subjective Chief Complaint/HPI No acute events overnight. Patient states she is feeling well this morning, though she is still saddened by the recent of her . Objective Physical Examination General Exam: Positive: Alert, No Acute Distress Chest Exam: Positive: Clear to auscultation, Normal air movement Heart Exam: Positive: Rate Normal, Regular Rhythm, Normal S1, Normal S2; Negative: Murmurs, Rubs Abdomen Exam: Positive: Normal bowel sounds, Soft; Negative: Tenderness, Hepatospenomegaly Psych Exam: Positive: Mental status NL, Mood NL, Oriented x 3 Assessment /Plan Problems (1) Norovirus Status: Resolved Problem Text: 11/10- No diarrhea overnight, no emesis or abdominal pain. Slow mag given this AM for magnesium repletion. She continues to work with physical therapy, shooting for Monday to have her home w/ services. 11/09 - Clinically improved Replace K+, check mag 11/08/18: improving. PT/OT eval today, anticipate DC today/tomorrow. + for norovirus on GI panel. Contact precautions in place. Encouraged po intake. advance diet as tolerated. (2) Hypokalemia Status: Resolved Problem Text: 11/10- Normokalemia 11/09 - give further K+ today and check mag level (3) UTI (urinary tract infection) Status: Resolved Problem Text: 11/09 - U/C no growth of clinical significance - Cipro d/c'd (4) Depression Status: Chronic Problem Text: On home dosing of Fluoxetine and Imipramine. Buproprion was ordered by insurance agency owner. I clarified with patient that she has not been taking this medication. (5) Hyperlipidemia Status: Chronic (6) Hypothyroidism Status: Chronic Problem Text: on home dose of Levothyroxine Plan/VTE VTE Prophylaxis Ordered?: Yes (Heparin ) VS, I&O, 24H, Diontebonchris Vital Signs/I&O Vital Signs Date Time Temp Pulse Resp B/P (MAP) Pulse Ox O2 Delivery O2 Flow Rate FiO2 11/10/18 06:00 96.5 88 18 136/87 (103) 99 11/06/18 14:37 Room Air I&O- Last 24 Hours up to 6 AM 11/10/18 06:00 Intake Total 1420 ml Output Total 1350 ml Balance 70 ml Laboratory Data 24H LABS Laboratory Tests 2 11/10/18 05:43: Nucleated Red Blood Cells % (auto) 0.0, Anion Gap 5L, Glomerular Filtration Rate > 60.0, Blood Urea Nitrogen 10#, Creatinine 0.68, Sodium Level 139, Potassium Level 4.6#, Chloride Level 101, Carbon Dioxide Level 33H, Calcium Level 9.0 CBC/BMP Laboratory Tests 11/10/18 05:43 Red Blood Count 4.86, Mean Corpuscular Volume 87.0, Mean Corpuscular Hemoglobin 28.8, Mean Corpuscular Hemoglobin Concent 33.1, Red Cell Distribution Width 12.6, Calcium Level 9.0 Microbiology Microbiology 11/06/18 Gastrointestinal Tract Panel (PCR) - Final, Complete Norovirus 11/06/18 Urine Culture - Final, Complete GME ATTESTATION GME ATTESTATION My faculty preceptor for this patient encounter was physically present during the encounter and was fully available. All aspects of the patient interview, examination, medical decision making process, and medical care plan development were reviewed and approved by the faculty preceptor. The faculty preceptor is aware and concurs with the plan as stated in the body of this note and will attest to such by his/her cosignature. RATNA SWAN DO Nov 10, 2018 14:03
[2018-11-10] MEDS: SIMVASTATIN 40 MG TAB PO SCH (20:40)
[2018-11-10 22:00] VITALS: BP 139/81
[2018-11-10] MEDS: LORazepam 0.5 MG TAB PO PRN (22:48)
[2018-11-11] MEDS: LEVOTHYROXINE 75MCG TABLET (0.075MG) PO SCH (05:46)
[2018-11-11 06:00] VITALS: BP 141/78
[2018-11-11] MEDS: CALCIUM/VITAMIN D 500 MG TAB PO SCH ×2 (08:47→20:37)
[2018-11-11] MEDS: VITAMIN D 1,000 INTERNATIONAL UNITS TABLET PO SCH (08:47)
[2018-11-11] MEDS: IMIPRAMINE 25 MG TAB PO SCH ×2 (08:48→20:37)
[2018-11-11] MEDS: HEPARIN SOD (PORCINE) 5000 UNITS/ML VIAL SQ SCH ×2 (08:48→20:37)
[2018-11-11] MEDS: FLUoxetine 20 MG CAP PO SCH ×2 (08:48→20:37)
[2018-11-11 14:00] VITALS: BP 150/78
[2018-11-11] MEDS: SIMVASTATIN 40 MG TAB PO SCH (20:37)
[2018-11-11 22:00] VITALS: BP 146/81
--- NOTE | 2018-11-12 00:35 | IPNPDOC ---
Subjective Date Seen The patient was seen on 11/12/18. Subjective Chief Complaint/HPI Patient reports that she will be visited by a friend jourdan who may be able to provide some care for her at home. She is feeling much better physically, though grieving. She is concerned about arrangements for her 's , and having the house cleaned. Constitutional: Denies: Chills, Fever Pulmonary: Denies: Dyspnea, Cough Cardiovascular: Denies: Chest Pain, Palpitations Gastrointestinal: Denies: Nausea, Vomiting, Abdominal Pain, Diarrhea, Constipation Psych: Denies: Mood Normal Objective Physical Examination General Exam: Positive: Alert, No Acute Distress Chest Exam: Positive: Clear to auscultation, Normal air movement Heart Exam: Positive: Rate Normal, Regular Rhythm, Normal S1, Normal S2; Negative: Murmurs, Rubs Abdomen Exam: Positive: Normal bowel sounds, Soft; Negative: Tenderness, Hepatospenomegaly Psych Exam: Positive: Mental status NL, Mood NL, Oriented x 3 Assessment /Plan Problems (1) Norovirus Status: Acute Problem Text: 11/11 -- GI symptoms resolved 11/10- No diarrhea overnight, no emesis or abdominal pain. Slow mag given this AM for magnesium repletion. She continues to work with physical therapy, shooting for Monday to have her home w/ services. 11/09 - Clinically improved Replace K+, check mag 11/08/18: improving. PT/OT eval today, anticipate DC today/tomorrow. + for norovirus on GI panel. Contact precautions in place. Encouraged po intake. advance diet as tolerated. (2) Hypokalemia Status: Acute Problem Text: 11/10- Normokalemia 11/09 - give further K+ today and check mag level (3) UTI (urinary tract infection) Status: Acute Problem Text: 11/09 - U/C no growth of clinical significance - Cipro d/c'd (4) Depression Status: Chronic Problem Text: On home dosing of Fluoxetine and Imipramine. Buproprion was ordered by chief resource officer. I clarified with patient that she has not been taking this medication. (5) Hyperlipidemia Status: Chronic (6) Hypothyroidism Status: Chronic Problem Text: on home dose of Levothyroxine Plan/VTE VTE Prophylaxis Ordered?: Yes (Heparin ) VS, I&O, 24H, Fishbone Vital Signs/I&O Vital Signs Date Time Temp Pulse Resp B/P (MAP) Pulse Ox O2 Delivery O2 Flow Rate FiO2 11/11/18 22:00 97.4 72 17 146/81 (102) 97 11/06/18 14:37 Room Air I&O- Last 24 Hours up to 6 AM 11/12/18 06:00 Intake Total 550 ml Output Total 0 ml Balance 550 ml Laboratory Data 24H LABS Laboratory Tests 2 11/11/18 09:35: Magnesium Level 2.0 Microbiology Microbiology 11/06/18 Gastrointestinal Tract Panel (PCR) - Final, Complete Norovirus 11/06/18 Urine Culture - Final, Complete AUREA LANDIS DO Nov 12, 2018 00:35
[2018-11-12] MEDS: LORazepam 0.5 MG TAB PO PRN (01:29)
[2018-11-12] MEDS: LEVOTHYROXINE 75MCG TABLET (0.075MG) PO SCH (05:32)
[2018-11-12 06:00] VITALS: BP 151/66
[2018-11-12 06:05] LABS: HEMATOCRIT 42.1 % (36.0-47.0); HEMOGLOBIN 13.8 g/dl (12.0-15.5); MEAN CORPUSCULAR HEMOGLOBIN 29.2 pg (27.0-33.0); MEAN CORPUSCULAR HGB CONC 32.8 g/dl (32.0-36.5); PLATELET COUNT, AUTOMATED 377 10^3/uL (150-450); RED BLOOD COUNT 4.73 10^6/uL (4.00-5.40)
[2018-11-12 06:36] LABS: BLOOD UREA NITROGEN 14 MG/DL (7-18); CALCIUM LEVEL 9.1 MG/DL (8.8-10.2); CARBON DIOXIDE LEVEL 32 MEQ/L (21-32); CHLORIDE LEVEL 103 MEQ/L (98-107); CREATININE FOR GFR 0.75 MG/DL (0.55-1.30); GLOMERULAR FILTRATION RATE > 60.0 (>32); GLUCOSE, FASTING 109 MG/DL (70-100); POTASSIUM SERUM 4.1 MEQ/L (3.5-5.1); SODIUM LEVEL 140 MEQ/L (136-145)
--- NOTE | 2018-11-12 09:33 | IPNPDOC ---
Subjective Date Seen The patient was seen on 11/12/18. Subjective Chief Complaint/HPI Pt this morning reports that she hasn't been able to sleep well since coming to the hospital. This is upsetting to her because she feels she won't be able to improve her independence without adequate rest. She states that last night she met with a caregiver who her friend has used and has hired her. She tells me that this caregiver can be available as much as needed. General: Denies: Fatigue Constitutional: Denies: Chills, Fever Pulmonary: Denies: Dyspnea, Cough Cardiovascular: Denies: Chest Pain, Palpitations Gastrointestinal: Denies: Nausea, Vomiting, Diarrhea Neurological: Reports: Weakness Psych: Reports: Mood Normal, Memory Issues Objective Physical Examination General Exam: Positive: Alert, No Acute Distress ENT Exam: Positive: Mucous membr. moist/pink Chest Exam: Positive: Normal air movement; Negative: Diminished Heart Exam: Positive: Rate Normal, Regular Rhythm, Normal S1, Normal S2; Negative: Murmurs, Rubs Abdomen Exam: Positive: Normal bowel sounds, Soft; Negative: Tenderness, Hepatospenomegaly Neuro Exam: Positive: Normal Speech Psych Exam: Positive: Mental status NL, Mood NL, Oriented x 3 Assessment /Plan Problems (1) Norovirus Status: Resolved Problem Text: 11/11 -- GI symptoms resolved 11/10- No diarrhea overnight, no emesis or abdominal pain. Slow mag given this AM for magnesium repletion. She continues to work with physical therapy, shooting for Monday to have her home w/ services. 11/09 - Clinically improved Replace K+, check mag 11/08/18: improving. PT/OT eval today, anticipate DC today/tomorrow. + for norovirus on GI panel. Contact precautions in place. Encouraged po intake. advance diet as tolerated. (2) Depression Status: Chronic Problem Text: on HD fluox 60 QD, imi 25 BID (off elian 0.5 BID prn) did not start bup 100 SR (3) Hypothyroidism Status: Chronic Problem Text: on home dose of Levothyroxine (4) Physical deconditioning Status: Chronic Problem Text: 11/12 PT not safe for dc home Plan/VTE VTE Prophylaxis Ordered?: Yes (Heparin ) Plan Await for d/c plan per PT and PFS. VS, I&O, 24H, Fishbone Vital Signs/I&O Vital Signs Date Time Temp Pulse Resp B/P (MAP) Pulse Ox O2 Delivery O2 Flow Rate FiO2 11/12/18 06:00 97.4 89 16 151/66 (94) 96 11/06/18 14:37 Room Air I&O- Last 24 Hours up to 6 AM 11/12/18 06:00 Intake Total 800 ml Output Total 0 ml Balance 800 ml Laboratory Data 24H LABS Laboratory Tests 2 11/11/18 09:35: Magnesium Level 2.0 11/12/18 05:36: Nucleated Red Blood Cells % (auto) 0.0, Anion Gap 5L, Glomerular Filtration Rate > 60.0, Blood Urea Nitrogen 14, Creatinine 0.75, Sodium Level 140, Potassium Level 4.1, Chloride Level 103, Carbon Dioxide Level 32, Calcium Level 9.1 CBC/BMP Laboratory Tests 11/12/18 05:36 Red Blood Count 4.73, Mean Corpuscular Volume 89.0, Mean Corpuscular Hemoglobin 29.2, Mean Corpuscular Hemoglobin Concent 32.8, Red Cell Distribution Width 13.2, Calcium Level 9.1 Microbiology Microbiology 11/06/18 Gastrointestinal Tract Panel (PCR) - Final, Complete Norovirus 11/06/18 Urine Culture - Final, Complete ROSA KENNEDY PA-C Nov 12, 2018 09:33 Estrada Hyatt M.D. Nov 12, 2018 16:05
[2018-11-12] MEDS: FLUoxetine 20 MG CAP PO SCH ×2 (10:49→21:07)
[2018-11-12] MEDS: HEPARIN SOD (PORCINE) 5000 UNITS/ML VIAL SQ SCH ×2 (10:49→21:06)
[2018-11-12] MEDS: CALCIUM/VITAMIN D 500 MG TAB PO SCH ×2 (10:50→21:07)
[2018-11-12] MEDS: IMIPRAMINE 25 MG TAB PO SCH ×2 (10:50→21:07)
[2018-11-12] MEDS: VITAMIN D 1,000 INTERNATIONAL UNITS TABLET PO SCH (10:50)
[2018-11-12 14:00] VITALS: BP 168/80
--- NOTE | 2018-11-12 16:14 | NUR ---
Pt demonstrates mild cognitive impairment which may be exacerbated by anxiety/depression over her spouse's recent 4 days ago. Health care proxy states that pt has always been very "scatter brained" but that she has become increasingly anxious, confused, and dependent, often calling her for assistance in the middle of the night unnecessarily. Health care proxy has sought out a caregiver who will help manage medications, prepare meals, etc. Discussed w/ health care proxy that pt should have assistance with these tasks. Health care proxy does not have concern for pt taking unsafe risks, however that she has called EMS for minor problems that do not require medical attention. Will f/u cognitive therapy for problem-solving questions and safety awareness training. Discussed with health care proxy that pt would benefit from professional counselling. A referral would be appreciated. Addendum: 11/12/[address] [facility] Amended: Links added.
[2018-11-12] MEDS: SIMVASTATIN 40 MG TAB PO SCH (21:07)
[2018-11-12] MEDS: LORazepam 1 MG TAB PO SCH (21:07)
[2018-11-12 22:00] VITALS: BP 152/72
[2018-11-13 06:00] VITALS: BP 150/79
[2018-11-13 06:01] LABS: HEMATOCRIT 41.6 % (36.0-47.0); HEMOGLOBIN 13.2 g/dl (12.0-15.5); MEAN CORPUSCULAR HEMOGLOBIN 28.8 pg (27.0-33.0); MEAN CORPUSCULAR HGB CONC 31.7 g/dl (32.0-36.5); MEAN CORPUSCULAR VOLUME 90.8 fl (80.0-96.0); PLATELET COUNT, AUTOMATED 362 10^3/uL (150-450); RED BLOOD COUNT 4.58 10^6/uL (4.00-5.40); WHITE BLOOD COUNT 8.7 10^3/uL (4.0-10.0)
[2018-11-13 06:26] LABS: BLOOD UREA NITROGEN 15 MG/DL (7-18); CALCIUM LEVEL 8.7 MG/DL (8.8-10.2); CARBON DIOXIDE LEVEL 35 MEQ/L (21-32); CHLORIDE LEVEL 103 MEQ/L (98-107); GLOMERULAR FILTRATION RATE > 60.0 (>32); GLUCOSE, FASTING 107 MG/DL (70-100); POTASSIUM SERUM 4.7 MEQ/L (3.5-5.1); SODIUM LEVEL 139 MEQ/L (136-145)
[2018-11-13] MEDS: LEVOTHYROXINE 75MCG TABLET (0.075MG) PO SCH (06:30)
[2018-11-13] MEDS: IMIPRAMINE 25 MG TAB PO SCH ×2 (10:53→20:16)
[2018-11-13] MEDS: VITAMIN D 1,000 INTERNATIONAL UNITS TABLET PO SCH (10:53)
[2018-11-13] MEDS: CALCIUM/VITAMIN D 500 MG TAB PO SCH ×2 (10:53→20:15)
[2018-11-13] MEDS: HEPARIN SOD (PORCINE) 5000 UNITS/ML VIAL SQ SCH ×2 (10:54→20:17)
[2018-11-13] MEDS: FLUoxetine 20 MG CAP PO SCH ×2 (10:54→20:16)
[2018-11-13 14:00] VITALS: BP 160/72
--- NOTE | 2018-11-13 17:20 | DSES ---
DATE OF ADMISSION: 11/07/2018 DATE OF DISCHARGE: DATE OF [facility] FACILITY (SNF): 11/13/2018 BRIEF HISTORY AND PHYSICAL: The patient is an 78-year-old patient who was recently treated for a urinary tract infection (UTI) by her primary care provider (PCP) with Keflex, got better within a day or two, but then developed nausea and vomiting and diarrhea. She came to the emergency room. She did not have any feeling of fever, aches or chills. She was found to be hypokalemia and gastrointestinal (GI) panel confirmed norovirus. PAST MEDICAL HISTORY: Significant for hypothyroidism and hyperlipidemia. HOSPITAL COURSE: 1. The patient was admitted for hypokalemia secondary to diarrhea from norovirus. She was given potassium supplementation and IV fluid support. Her gastrointestinal (GI) symptoms resolved. Her potassium normalized. Magnesium was replaced as well. She was taking oral fluids well and her viral GI illness has resolved. 2. Depression. She is stable on her usual home dose of fluoxetine. 3. Hypothyroidism. She remains on the levothyroxine. 4. Physical deconditioning. She continues with physical therapy. Per patient and family services (PFS) and physical therapy, she is not safe for discharge home. Her while she was here in the hospital last week on 11/09/2018. He was admitted to the hospital and she was able to be with him when he , but he was her primary caregiver at home, and at this point, she has some neighbors who are helping to arrange some 24-hour care for her and she would like to go home. She has capacity make decisions for herself but realizes that she needs help. At this point, we are making her residential facility (SNF) and we are hoping that the neighbors and friends will be able to arrange the 24-hour care that she needs so that she can go home, 24/7 care sometime this week. DISPOSITION: She is stable for residential facility (SNF) status. MEDICATIONS: Will be dictated at the time of her transfer to the fci or discharge home with 24-hour care whichever occurs first. DISCHARGE DIAGNOSES: 1. Hypokalemia. 2. Acute norovirus causing diarrhea. 3. Depression. 4. Hypothyroidism. 5. Physical deconditioning. 6. Need for 24/7 care.
[2018-11-13] MEDS: LORazepam 1 MG TAB PO SCH (20:15)
[2018-11-13] MEDS: SIMVASTATIN 40 MG TAB PO SCH (20:17)
[2018-11-13 22:00] VITALS: BP 161/79
[2018-11-14] MEDS: LEVOTHYROXINE 75MCG TABLET (0.075MG) PO SCH (05:42)
[2018-11-14 06:00] VITALS: BP 147/69
[2018-11-14] MEDS: CALCIUM/VITAMIN D 500 MG TAB PO SCH (10:43)
[2018-11-14] MEDS: FLUoxetine 20 MG CAP PO SCH (10:43)
[2018-11-14] MEDS: HEPARIN SOD (PORCINE) 5000 UNITS/ML VIAL SQ SCH (10:43)
[2018-11-14] MEDS: VITAMIN D 1,000 INTERNATIONAL UNITS TABLET PO SCH (10:44)
[2018-11-14] MEDS: IMIPRAMINE 25 MG TAB PO SCH (11:50)
--- NOTE | 2018-11-14 18:27 | DSES ---
DATE OF ADMISSION: 11/07/2018 DATE OF DISCHARGE: 11/14/2018 The patient was made [facility] facility (SNF) yesterday. She has made arrangements for 24-hour care at home and therefore is now safe for discharge home with 24-hour care and a home care referral. There have been no events since that the SNF summary was dictated yesterday. DISCHARGE MEDICATIONS: - aspirin 81 mg daily - calcium plus D one tablet twice a day - vitamin D 2000 international units daily - fluoxetine 40 mg in the morning and 20 mg in the evening - imipramine 25 mg twice a day - levothyroxine 75 mcg daily - lorazepam 0.5 mg twice a day as needed for anxiety - simvastatin 40 mg at bedtime Bupropion, celecoxib, liothyronine were not given during her hospitalization, and therefore will be continued at discharge. DISCHARGE DIAGNOSES: Unchanged from those dictated the time of her SNF summary. edited: 11/16/2018 0738 tkf MTDD
== END 2018-11-14 14:12 | disposition home health service (06) | DRG 392 ==
LOC: M ED 09:18 → M ED INP 14:02 → M MSPAV 15:34 → OBSVTOIN 11-07 15:04 → M MSPAV 11-07 15:27
PROVIDERS: ADMIT Internal Medicine; ATTEND Family Medicine
DX: A08.11 Acute gastroenteropathy due to Norwalk agent (principal); N39.0 Urinary tract infection, site not specified; E87.6 Hypokalemia; E03.9 Hypothyroidism, unspecified; E78.5 Hyperlipidemia, unspecified; F32.9 Major depressive disorder, single episode, unspecified; Z79.82 Long term (current) use of aspirin; Z79.899 Other long term (current) drug therapy

== ENCOUNTER → 2018-12-21 | Outpatient (REF) | payer MEDICARE, OTHER ==
[~2018-12-21] MED LIST changes: -ASPI1TAB PO; +ASPI81TA26 PO; +BUPR100T3 PO; +IMIP25TA3 PO; +LEVO75TA4 PO
[2018-12-21 16:05] LABS: BASO # 0.1 10^3/uL (0.0-0.2); BASO % 0.6 % (0.0-1.0); EOS # 0.3 10^3/uL (0.0-0.50); EOS % 3.5 % (0.0-3.0); HEMATOCRIT 42.2 % (36.0-47.0); HEMOGLOBIN 13.3 g/dl (12.0-15.5); LYMPH # 1.8 10^3/uL (1.5-4.5); LYMPH % 22.4 % (24.0-44.0); MEAN CORPUSCULAR HGB CONC 31.5 g/dl (32.0-36.5); MEAN CORPUSCULAR VOLUME 91.9 fl (80.0-96.0); MONO # 0.6 10^3/uL (0.0-0.8); MONO % 8.2 % (0.0-5.0); NEUTROPHILS # 5.1 10^3/uL (1.8-7.7); PLATELET COUNT, AUTOMATED 366 10^3/uL (150-450); RED BLOOD COUNT 4.59 10^6/uL (4.00-5.40); WHITE BLOOD COUNT 7.8 10^3/uL (4.0-10.0)
[2018-12-21 16:26] LABS: ALBUMIN 3.6 GM/DL (3.2-5.2); ALT/SGPT 30 U/L (12-78); BILIRUBIN,TOTAL 0.4 MG/DL (0.2-1.0); BLOOD UREA NITROGEN 14 MG/DL (7-18); CALCIUM LEVEL 9.3 MG/DL (8.8-10.2); CARBON DIOXIDE LEVEL 29 MEQ/L (21-32); CHLORIDE LEVEL 104 MEQ/L (98-107); CREATININE FOR GFR 0.59 MG/DL (0.55-1.30); FREE T4 1.09 NG/DL (0.76-1.46); GLOMERULAR FILTRATION RATE > 60.0 (>32); GLUCOSE, FASTING 92 MG/DL (70-100); POTASSIUM SERUM 4.1 MEQ/L (3.5-5.1); PTH INTACT 84.3 PG/ML (18.5-88.0); SODIUM LEVEL 140 MEQ/L (136-145); TOTAL 25(OH) VITAMIN D 34.9 NG/ML (30.0-100.0); TOTAL PROTEIN 6.9 GM/DL (6.4-8.2); VITAMIN B12 LEVEL 1106 PG/ML (247-911)
== END ==
LOC: M SFHCPLAZ 12:39
PROVIDERS: ATTEND Family Medicine
DX: I10 Essential (primary) hypertension (principal); E55.9 Vitamin D deficiency, unspecified; E03.9 Hypothyroidism, unspecified; E53.8 Deficiency of other specified B group vitamins
CPT/HCPCS: 36415; 80053; 82306; 82607; 83970; 84439; 84443; 85025; 85046; 86677; G0463

== ENCOUNTER → 2019-05-15 | Outpatient (REF) | payer MEDICARE, OTHER ==
[2019-05-15 13:26] LABS: BASO % 0.7 % (0.0-1.0); EOS # 0.2 10^3/uL (0.0-0.5); HEMATOCRIT 42.4 % (36.0-47.0); HEMOGLOBIN 13.4 g/dl (12.0-15.5); LYMPH # 1.7 10^3/uL (1.5-5.0); LYMPH % 30.8 % (24.0-44.0); MEAN CORPUSCULAR HEMOGLOBIN 28.6 pg (27.0-33.0); MEAN CORPUSCULAR HGB CONC 31.6 g/dl (32.0-36.5); MEAN CORPUSCULAR VOLUME 90.4 fl (80.0-96.0); MONO # 0.5 10^3/uL (0.0-0.8); MONO % 9.1 % (0.0-5.0); NEUTROPHILS % 55.2 % (36.0-66.0); PLATELET COUNT, AUTOMATED 286 10^3/uL (150-450); RED BLOOD COUNT 4.69 10^6/uL (4.00-5.40); WHITE BLOOD COUNT 5.5 10^3/uL (4.0-10.0)
[2019-05-15 13:37] LABS: ALBUMIN 3.5 GM/DL (3.2-5.2); ALT/SGPT 24 U/L (12-78); BILIRUBIN,TOTAL 0.4 MG/DL (0.2-1.0); BLOOD UREA NITROGEN 19 MG/DL (7-18); CALCIUM LEVEL 9.8 MG/DL (8.8-10.2); CARBON DIOXIDE LEVEL 34 MEQ/L (21-32); CHLORIDE LEVEL 105 MEQ/L (98-107); CHOLESTEROL LEVEL 173 MG/DL (<200); CHOLESTEROL RISK RATIO 3.203 (<5); CREATININE FOR GFR 0.65 MG/DL (0.55-1.30); FREE T4 0.79 NG/DL (0.76-1.46); GLOMERULAR FILTRATION RATE > 60.0 (>32); GLUCOSE, FASTING 101 MG/DL (70-100); HDL CHOLESTEROL 54 MG/DL (>40); LDL CHOLESTEROL 90 MG/DL (<100); NON-HDL-C 119 MG/DL; NT-PRO BNP 211 PG/ML (<450); POTASSIUM SERUM 4.6 MEQ/L (3.5-5.1); SODIUM LEVEL 143 MEQ/L (136-145); THYROID STIMULATING HORMONE 0.105 uIU/ML (0.358-3.740); TOTAL PROTEIN 6.3 GM/DL (6.4-8.2); TRIGLYCERIDES LEVEL 147 MG/DL (<150)
[2019-05-15 14:18] LABS: HEMOGLOBIN A1c 5.9 %
== END ==
LOC: M SFHCPLAZ 10:07
PROVIDERS: ATTEND Nurse Practitioner Family
DX: I10 Essential (primary) hypertension (principal); E03.9 Hypothyroidism, unspecified; E78.2 Mixed hyperlipidemia; Z79.899 Other long term (current) drug therapy; Z79.82 Long term (current) use of aspirin

== ENCOUNTER 2019-05-24 15:45 | Emergency (ER) | payer MEDICARE, OTHER ==
[~2019-05-24] VITALS: Ht 149.9 cm; Wt 64.7 kg
[~2019-05-24 15:45] MED LIST changes: -LIOT5TAB PO; +LIOT5TAB6 PO
[2019-05-24] MEDS ORDERED: WELL100T2 PO (17:43)
[2019-05-24] MEDS ORDERED: LEXA5TAB13 PO (17:43)
[2019-05-24] MEDS ORDERED: ATIV1TAB7 PO (17:44)
[2019-05-24 19:31] VITALS: BP 167/73
== END 2019-05-24 19:32 | disposition home or self-care (01) ==
LOC: M ED 15:45
DX: F32.9 Major depressive disorder, single episode, unspecified (principal); I10 Essential (primary) hypertension; R45.851 Suicidal ideations; Z79.899 Other long term (current) drug therapy; Z79.82 Long term (current) use of aspirin

== ENCOUNTER → 2019-06-04 | Outpatient (CLI) | payer MEDICARE, OTHER ==
[~2019-06-04] MED LIST changes: +ATIV1TAB7 PO; +LEXA5TAB13 PO; +WELL100T2 PO
--- NOTE | 2019-06-04 10:19 | REP ---
RENAL ULTRASOUND WITH DUPLEX DOPPLER RENAL ARTERY EVALUATION: Real-time sonographic evaluation of kidneys performed. Kidneys normal in size and echotexture, right kidney measuring 11.3 x 4.7 x 4.4 cm, and left kidney 11.3 x 5.3 x 5.7 cm. There is no hydronephrosis bilaterally. Gallstone is incidentally noted in the gallbladder. Posterior septation in the urinary bladder is of uncertain significance. This could indicate a large ureterocele. Real-time sonographic evaluation and duplex Doppler interrogation of the renal arteries is performed bilaterally. Peak systolic velocity of the abdominal aorta at the level of the renal arteries is 85.2 cm/s. Peak systolic velocity of the main right renal artery is 115.4 cm/s, zybah-gy-offbaz ratio 1.4. Resistive indices are measured in the upper, middle, and lower thirds of the right kidney and range between 0.66 and 0.68. Acceleration times range between 0.03 and 0.04. Peak systolic velocity in the main left renal artery is 108.9 cm/s, cuewg-hv-livbkv ratio 1.3. Resistive indices left kidney range between 0.72 and 0.80. Acceleration times are in the range of 0.03. IMPRESSION: No compelling duplex Doppler sonographic evidence of significant renal artery stenosis bilaterally. Electronically Signed by Sagar Cerda MD 06/05/2019 11:42 A
== END ==
LOC: M RAD 07:37
PROVIDERS: ATTEND Nurse Practitioner Family
DX: K80.20 Calculus of gallbladder without cholecystitis without obstruction (principal); I10 Essential (primary) hypertension

== ENCOUNTER → 2019-08-13 | Outpatient (CLI) | payer MEDICARE, OTHER ==
[~2019-08-13] MED LIST changes: -LORA0.5T11 PO; +LORA0.5T5 PO
--- NOTE | 2019-08-13 13:16 | REPPI ---
Clinical: Bilateral hand pain and swelling. Technique: AP, lateral, bilateral oblique views of the right and left hand. Findings: Left hand demonstrates advanced osteoarthritic degenerative changes at the second and third distal interphalangeal joints where marginal spurring with joint space narrowing and subchondral heterogeneity with cystic changes causing gull-wing deformity. Moderate osteoarthritic degenerative changes noted throughout the remainder of the examination which are most pronounced at the first MCP joint. No acute fracture or dislocation. Right hand demonstrates advanced osteoarthritic degenerative change at the second distal interphalangeal joint including subchondral sclerosis, mild chronic subluxation, and marginal spurring. Moderate osteoarthritic degenerative changes noted throughout the remainder of the examination. No acute fracture or dislocation. Impression: Osteoarthritic degenerative changes. Electronically Signed by Martinez Morales MD 08/13/2019 01:07 P
--- NOTE | 2019-08-13 13:16 | REPPI ---
Clinical: Back pain. Technique: AP, lateral, bilateral oblique and coned-down views of the lumbosacral spine. Findings: Alignment and lordosis maintained. No acute fracture / compression injury or subluxation. Moderate multilevel degenerative changes include endplate sclerosis, marginal spurring, and mild disc space narrowing primarily involving L4-5. No evidence for spondylolysis or spondylolisthesis. Impression: Moderate multilevel degenerative spondylosis. Electronically Signed by Martinez Morales MD 08/13/2019 01:08 P
[2019-08-13 16:30] LABS: C REACTIVE PROTEIN QUANTITATIV < 0.30 MG/DL (0.00-0.30); FREE T3 2.3 PG/ML (2.2-4.0); FREE T4 0.74 NG/DL (0.76-1.46); NT-PRO BNP 154 PG/ML (<450); RHEUMATOID FACTOR QUANT < 10.0 IU/ML (<15.0)
== END ==
LOC: M PLAIMG 12:26
PROVIDERS: ATTEND Nurse Practitioner Family
DX: M19.041 Primary osteoarthritis, right hand (principal); M19.042 Primary osteoarthritis, left hand; M25.78 Osteophyte, vertebrae; M51.36 Other intervertebral disc degeneration, lumbar region; M47.816 Spondylosis without myelopathy or radiculopathy, lumbar region; E03.9 Hypothyroidism, unspecified; M54.5 Low back pain; M79.89 Other specified soft tissue disorders; M25.50 Pain in unspecified joint; R60.0 Localized edema
CPT/HCPCS: 36415; 72110; 73130; 83880; 84439; 84443; 84481; 85652; 86140; 86431; 90471; 90750; G0463

== ENCOUNTER → 2019-10-22 | Outpatient (REF) | payer MEDICARE, OTHER ==
[~2019-10-22] MED LIST changes: -FLUO20CA19 PO; +FLUO20CA22 PO
[2019-10-22 15:43] LABS: BLOOD UREA NITROGEN 15 MG/DL (7-18); CALCIUM LEVEL 9.3 MG/DL (8.8-10.2); CARBON DIOXIDE LEVEL 31 MEQ/L (21-32); CHLORIDE LEVEL 106 MEQ/L (98-107); CREATININE FOR GFR 0.59 MG/DL (0.55-1.30); FREE T4 0.78 NG/DL (0.76-1.46); GLOMERULAR FILTRATION RATE > 60.0 (>32); GLUCOSE, FASTING 83 MG/DL (70-100); POTASSIUM SERUM 4.3 MEQ/L (3.5-5.1); SODIUM LEVEL 141 MEQ/L (136-145); TOTAL 25(OH) VITAMIN D 37.5 NG/ML (30.0-100.0); VITAMIN B12 LEVEL 1535 PG/ML (247-911)
== END ==
LOC: M SFHCPLAZ 12:42
PROVIDERS: ATTEND Family Medicine
DX: E03.9 Hypothyroidism, unspecified (principal); I10 Essential (primary) hypertension; E55.9 Vitamin D deficiency, unspecified; E53.8 Deficiency of other specified B group vitamins
CPT/HCPCS: 80048; 82306; 82607; 84439; 84443; G0463

== ENCOUNTER 2019-12-18 20:15 | Inpatient (IN) | payer MEDICARE, OTHER ==
[~2019-12-18] VITALS: Ht 149.9 cm; Wt 67.5 kg
[2019-12-18] MEDS ORDERED: MOVA1TAB2 PO (20:27)
[2019-12-18] MEDS ORDERED: HYDR12.55 PO (20:27)
[2019-12-18] MEDS ORDERED: CARV6.25 PO (20:27)
[2019-12-18] MEDS ORDERED: DORZ2SOL5 OU (20:27)
[2019-12-18] MEDS ORDERED: TRAM50TA2 PO (20:27)
[2019-12-18] MEDS ORDERED: CYTO5TAB8 PO (20:27)
[2019-12-18] MEDS ORDERED: XALA0.007 OU (20:27)
[2019-12-18] MEDS ORDERED: TELM1TAB35 PO (20:27)
[2019-12-18] MEDS ORDERED: RISP1SS PO (20:27)
[2019-12-18] MEDS ORDERED: B-12100021 PO (20:27)
[2019-12-18] MEDS ORDERED: LORA0.5T5 PO ×2 (20:27→22:48)
[2019-12-18 21:04] LABS: BASO % 0.3 % (0.0-1.0); EOS % 0.3 % (0.0-3.0); HEMATOCRIT 41.7 % (36.0-47.0); HEMOGLOBIN 13.6 g/dl (12.0-15.5); LYMPH # 1.3 10^3/uL (1.5-5.0); MEAN CORPUSCULAR HEMOGLOBIN 29.6 pg (27.0-33.0); MEAN CORPUSCULAR HGB CONC 32.6 g/dl (32.0-36.5); MEAN CORPUSCULAR VOLUME 90.8 fl (80.0-96.0); MONO # 0.6 10^3/uL (0.0-0.8); MONO % 4.6 % (0.0-5.0); NEUTROPHILS % 83.5 % (36.0-66.0); PLATELET COUNT, AUTOMATED 291 10^3/uL (150-450); RED BLOOD COUNT 4.59 10^6/uL (4.00-5.40); WHITE BLOOD COUNT 11.9 10^3/uL (4.0-10.0)
[2019-12-18] MEDS ORDERED: ISOVUE-370 76% 100ML VIAL As Ordered ONE (21:09)
[2019-12-18] MEDS ORDERED: NS 500 ML IV ONE (21:15)
[2019-12-18] MEDS ORDERED: MORPHINE 2 MG/ML 1ML VIAL (J2270) IV ONE ×2 (21:30→22:15)
[2019-12-18 21:31] LABS: ALBUMIN 3.7 GM/DL (3.2-5.2); ALT/SGPT 27 U/L (12-78); BILIRUBIN,DIRECT 0.1 MG/DL (0.0-0.2); BILIRUBIN,TOTAL 0.5 MG/DL (0.2-1.0); LIPASE 42 U/L (73-393); TOTAL PROTEIN 6.8 GM/DL (6.4-8.2)
--- NOTE | 2019-12-18 21:49 | REPVR ---
PROCEDURE INFORMATION: Exam: CT Abdomen And Pelvis With Contrast Exam date and time: 12/18/2019 9:20 PM Age: 79 years old Clinical indication: Abdominal pain; Localized; Left lower quadrant (llq) TECHNIQUE: Imaging protocol: Computed tomography of the abdomen and pelvis with intravenous contrast. Radiation optimization: All CT scans at this facility use at least one of these dose optimization techniques: automated exposure control; mA and/or kV adjustment per patient size (includes targeted exams where dose is matched to clinical indication); or iterative reconstruction. Contrast material: ISOVUE 370; Contrast volume: 100 ml; Contrast route: IV; COMPARISON: CR Pelvis, complete 04/11/2016 9:57 AM FINDINGS: Lungs: No lesions of the lung bases. Mediastinum: There is a small hiatal hernia with possible thickening of the distal esophageal wall. Liver: There is a diffuse decrease in hepatic parenchymal density, consistent with fatty infiltration. Gallbladder and bile ducts: Multiple calcified gallstones are present. Pancreas: There is diffuse, benign fatty infiltration of the pancreas. Spleen: The spleen is normal. Adrenals: The adrenal glands are unremarkable. Kidneys and ureters: The kidneys are normal. Stomach and bowel: Unremarkable. No obstruction. No mucosal thickening. Appendix: No evidence of appendicitis. Intraperitoneal space: There is a small volume of ascites in the pelvis. Vasculature: There is no evidence of an infrarenal abdominal aortic aneurysm. The arteries demonstrates diffuse moderate atherosclerotic calcification. Lymph nodes: Unremarkable. No enlarged lymph nodes. Bladder: The bladder is unremarkable. Reproductive: There is a cystic mass likely arising from the left ovary which has a thickened septum and measures 10 cm in width and AP by 12 cm cranial caudal. There are calcifications within the septation as well as within the left ovary and a probable solid component is also apparent. There are probable calcifications within the uterus or left adnexa. Bones/joints: Skeletal degeneration. Soft tissues: Unremarkable. IMPRESSION: 1. There is a complex cystic and solid mass likely emanating from the left ovary which may be due to cyst adenoma or cyst adenocarcinoma with associated small volume of ascites. 2. Cholelithiasis without evidence of acute cholecystitis. Electronically signed by: Jaja Arroa On 12/18/2019 21:48:56 PM
[2019-12-18] MEDS ORDERED: LEVO88TA3 PO (22:48)
[2019-12-18] MEDS ORDERED: DIPH25CA32 PO (22:48)
[2019-12-18] MEDS ORDERED: VIAC1CHW PO (22:48)
[2019-12-18] MEDS ORDERED: HYDR12CA PO (22:48)
[2019-12-18] MEDS ORDERED: ESCI20TA PO (22:48)
[2019-12-18] MEDS ORDERED: RISP0.5T3 PO (22:48)
[2019-12-18] MEDS ORDERED: BUPR-321 PO (22:48)
[2019-12-18] MEDS ORDERED: NYST10CR TOP (22:48)
[2019-12-18] MEDS ORDERED: TELM1TAB33 PO (22:48)
[2019-12-18] MEDS ORDERED: MORPHINE 2 MG/ML 1ML VIAL (J2270) IV PRN (23:45)
[2019-12-18] MEDS ORDERED: PERCOCET 5MG/325MG TAB PO PRN (23:45)
[2019-12-19] VITALS (10 sets, daily range): BP systolic 142–170; BP diastolic 60–80
[2019-12-19] MEDS: LR 1,000 ML IV SCH ×3 (00:30→16:26)
[2019-12-19] MEDS: risperiDONE 0.5 MG TAB PO SCH ×5 (02:32→21:07)
[2019-12-19] MEDS: DOCUSATE SODIUM 100 MG CAP PO SCH ×3 (02:33→21:06)
[2019-12-19] MEDS: CARVedilol 6.25 MG TAB PO SCH ×3 (02:33→21:07)
[2019-12-19] MEDS: LORazepam 0.5 MG TAB PO PRN (05:14)
[2019-12-19 06:03] LABS: HEMATOCRIT 37.5 % (36.0-47.0); HEMOGLOBIN 12.9 g/dl (12.0-15.5); MEAN CORPUSCULAR HEMOGLOBIN 30.7 pg (27.0-33.0); MEAN CORPUSCULAR HGB CONC 34.4 g/dl (32.0-36.5); MEAN CORPUSCULAR VOLUME 89.3 fl (80.0-96.0); PLATELET COUNT, AUTOMATED 276 10^3/uL (150-450); WHITE BLOOD COUNT 14.6 10^3/uL (4.0-10.0)
[2019-12-19 06:35] LABS: ALBUMIN 3.2 GM/DL (3.2-5.2); ALT/SGPT 30 U/L (12-78); BILIRUBIN,TOTAL 0.7 MG/DL (0.2-1.0); BLOOD UREA NITROGEN 12 MG/DL (7-18); CALCIUM LEVEL 9.1 MG/DL (8.8-10.2); CARBON DIOXIDE LEVEL 27 MEQ/L (21-32); CHLORIDE LEVEL 103 MEQ/L (98-107); CREATININE FOR GFR 0.59 MG/DL (0.55-1.30); GLOMERULAR FILTRATION RATE > 60.0 (>32); GLUCOSE, FASTING 120 MG/DL (70-100); POTASSIUM SERUM 3.7 MEQ/L (3.5-5.1); SODIUM LEVEL 139 MEQ/L (136-145)
--- NOTE | 2019-12-19 07:20 | HPE ---
DATE OF ADMISSION: 12/18/2019 HISTORY: 79-year-old female with one day of sharp, constant left lower quadrant pain that she rates as severe. She rates the pain as 10/10 intensity. The pain started suddenly when she woke up this morning. She tried taking an oral narcotic, which did not relieve the pain. She denied nausea or vomiting. She denies diarrhea. She has no vaginal bleeding. PAST MEDICAL HISTORY: 1. Major depression and anxiety. 2. Hypothyroidism. 3. Hyperlipidemia. 4. Osteopenia. 5. Cholelithiasis. 6. Elevated BERNABE antibody. 7. Impaired fasting glucose. 8. Vitamin B12 deficiency. SURGICAL HISTORY: 1. Tonsillectomy. 2. Cataract surgery in 2013. ALLERGIES: - AUGMENTIN SOCIAL HISTORY: The patient lives by herself in [place]. She denies cigarettes, alcohol or drug use. FAMILY HISTORY: Father at 75 from heart failure. Mother at 85 due to heart disease. PHYSICAL EXAMINATION: Blood pressure 169/82. Pulse 80. Oxygen saturation 96%. Afebrile. She appears moderately uncomfortable. Head and Neck Exam: Normal. Lungs: Clear. Heart: Regular rate and rhythm. Abdomen: Tender in the left lower quadrant. No rebound. No guarding. Positive bowel sounds. Extremities: Nontender. No edema. LABS: White blood count 1.9, hemoglobin 13.6, electrolytes normal. On CAT scan, there was a 10 cm mass of the left ovary and a septation, minimal amount of free fluid consistent with ascites, no other masses present. ASSESSMENT: 79-year-old female with a large complex pelvic mass and severe pain. Differential diagnosis includes cystadenoma or most likely cystadenocarcinoma. There is possibility of torsion of the ovarian mass due to the acute onset of the pain. PLAN: The patient will be admitted to the hospital for pain management. Will order tumor markers. Need to medically optimize the patient in preparation for surgery.
[2019-12-19] MEDS: hydroCHLOROthiazide 12.5 MG CAPSULE PO SCH (08:15)
[2019-12-19] MEDS: LEVOTHYROXINE 88MCG TABLET (0.088 MG) PO SCH (08:17)
[2019-12-19] MEDS: TELMISARTAN 20 MG TAB PO SCH ×2 (09:00→16:50)
[2019-12-19] MEDS ORDERED: BUPIVACAINE HCL 0.25% 30ML VIAL As Ordered ONE (09:30)
[2019-12-19] MEDS ORDERED: LIDOCAINE 2% 100MG/5ML SDV (FOR ANES.) As Ordered ONE (09:34)
[2019-12-19] MEDS ORDERED: ROCURONIUM BROMIDE 50 MG/5 ML VIAL As Ordered ONE ×2 (09:34→11:37)
[2019-12-19] MEDS ORDERED: fentaNYL 250 MCG/5 ML INJECTION (J3010) As Ordered ONE (09:34)
[2019-12-19] MEDS ORDERED: propofoL 200 MG/20 ML VIAL As Ordered ONE (09:34)
[2019-12-19] MEDS ORDERED: ONDANSETRON 4MG/2ML VIAL As Ordered ONE (09:34)
[2019-12-19] MEDS ORDERED: dexameTHASONE 4 MG/ML 1ML VIAL (J1100 PER 1MG) As Ordered ONE (09:34)
[2019-12-19] MEDS ORDERED: MIDAZOLAM INJ 2MG/2ML VIAL (J2250 PER 1MG) As Ordered ONE (09:34)
[2019-12-19] MEDS ORDERED: ACETAMINOPHEN 1000MG 100ML IV BTL (OFIRMEV) (J0131 PER 10MG) As Ordered ONE (09:39)
[2019-12-19] MEDS ORDERED: ePHEDrine SULFATE 25 MG/5 ML(5MG/ML) SYRINGE As Ordered ONE (11:21)
[2019-12-19] MEDS ORDERED: SUGAMMADEX SODIUM 500 MG/5 ML VIAL (BRIDION) As Ordered ONE (11:30)
[2019-12-19] MEDS ORDERED: LR 1,000 ML IV SCH (13:00)
[2019-12-19] MEDS ORDERED: ONDANSETRON 4MG/2ML VIAL IV PRN (13:00)
[2019-12-19] MEDS ORDERED: METOCLOPRAMIDE INJ 10MG/2ML VIAL (J2765 PER 1) IV PRN (13:00)
[2019-12-19] MEDS ORDERED: fentaNYL 100 MCG/2 ML INJECTION (J3010) IV PRN (13:00)
[2019-12-19] MEDS ORDERED: PERCOCET 5MG/325MG TAB PO PRN (13:00)
--- NOTE | 2019-12-19 21:12 | ECGEPIP ---
[facility] Test Date: 2019-12-19 Pat Name: ALVARO MORRISSEY Department: Room: [place] [address] Gender: Female Frame Bander: RAQUEL : 1940 Requested By: SHIVAM REYNA D.O. Order Number: [id number] Reading MD: Yair Leon Measurements Intervals [place] Rate: 81 P: 56 AR: 160 QRS: 3 QRSD: 83 T: 53 QT: 375 QTc: 438 Interpretive Statements SINUS RHYTHM NONSPECIFIC ST/T-WAVE ABNORMALITY(NEW) CONSIDER PRIOR INFEROPOSTERIOR INFARCT PRIOR ON 11/06/18 AT 11:51 Electronically Signed on 12-19-2019 21:11:54 EDT by Yair Leon
[2019-12-20] VITALS (7 sets, daily range): BP systolic 160–200; BP diastolic 73–110
[2019-12-20] MEDS: LEVOTHYROXINE 88MCG TABLET (0.088 MG) PO SCH (05:19)
[2019-12-20] MEDS ORDERED: APAP325T4 PO (06:14)
[2019-12-20] MEDS: DOCUSATE SODIUM 100 MG CAP PO SCH ×2 (08:41→20:53)
[2019-12-20] MEDS: hydroCHLOROthiazide 12.5 MG CAPSULE PO SCH (08:41)
[2019-12-20] MEDS: TELMISARTAN 20 MG TAB PO SCH (08:42)
[2019-12-20] MEDS: CARVedilol 6.25 MG TAB PO SCH ×2 (08:42→20:57)
[2019-12-20] MEDS: risperiDONE 0.5 MG TAB PO SCH ×4 (08:42→20:57)
[2019-12-20 10:33] LABS: CA 125 20.3 U/ML (<30.2)
[2019-12-21 04:00] VITALS: BP 160/88
[2019-12-21] MEDS: LORazepam 0.5 MG TAB PO PRN (04:27)
[2019-12-21] MEDS: LEVOTHYROXINE 88MCG TABLET (0.088 MG) PO SCH (06:43)
[2019-12-21 08:00] VITALS: BP 184/62
[2019-12-21] MEDS: TELMISARTAN 20 MG TAB PO SCH (09:44)
[2019-12-21] MEDS: risperiDONE 0.5 MG TAB PO SCH (09:44)
[2019-12-21] MEDS: CARVedilol 6.25 MG TAB PO SCH (09:44)
[2019-12-21] MEDS: DOCUSATE SODIUM 100 MG CAP PO SCH (09:44)
[2019-12-21] MEDS: hydroCHLOROthiazide 12.5 MG CAPSULE PO SCH (09:44)
--- NOTE | 2019-12-21 09:57 | IPNPDOC ---
Subjective Date Seen The patient was seen on 12/21/19. Subjective Chief Complaint/HPI POD#2 s/p laparoscopic LSO for ovarian torsion of large cystadenoma - surgically cleared. health services rn has not seen patient to arrange care following discharge. Objective Physical Examination General Exam: Positive: Cooperative Abdomen Exam: Positive: Soft Assessment /Plan Assessment A/P POD #2 s/p laparoscopic LSO for ovarian torsion of large cystadenoma -surgically stable Plan/VTE VTE Prophylaxis Ordered?: No Plan Diet: Continue Current Therapy: Home Safety Eval Pt and Family Services: Home Care VS, I&O, 24H, [facility] Vital Signs/I&O Vital Signs Date Time Temp Pulse Resp B/P (MAP) Pulse Ox O2 Delivery O2 Flow Rate FiO2 12/21/19 08:00 98.4 104 18 184/62 (102) 96 Room Air 12/19/19 16:30 2.0 I&O- Last 24 Hours up to 6 AM 12/21/19 06:00 Intake Total 720 ml Output Total 300 ml Balance 420 ml CHELLE NAJERA MD. December 21, 2019 09:57
--- NOTE | 2019-12-21 20:47 | DSES ---
DATE OF ADMISSION: 12/18/2019 DATE OF DISCHARGE: 12/21/2019 An 79-year-old female with 1 day of sharp, intense left lower quadrant pain that started on the morning of admission. She tried taking pain medication without relief. HOSPITAL COURSE: The patient presented to the emergency department at [facility] on 12/18/2019. She was diagnosed by CT scan with 10-12 cm left adnexal mass. On exam was exquisitely tender. The patient was admitted to the hospital for pain management. She was anticipated to proceed to the operating room for surgical treatment. On 12/19/2019 she underwent laparoscopic left salpingo-oophorectomy for a large cystadenoma of the left ovary with torsion. The procedure was without complication. Postoperatively her pain was dramatically improved. She had adequate return of bladder and bowel function. She was deemed stable for discharge on postoperative day #1. 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 PROCEDURE: Laparoscopic left salpingo-oophorectomy (LSO). DISPOSITION: Patient will followup with Dr. Hernandez in 2 weeks. Instructions were reviewed.
--- NOTE | 2019-12-23 06:23 | RO ---
DATE OF PROCEDURE: 12/19/2019 PREOPERATIVE DIAGNOSIS: Left ovarian cyst adenoma with ovarian torsion. POSTOPERATIVE DIAGNOSIS: Left ovarian cyst adenoma with ovarian torsion. PROCEDURE: Laparoscopic left salpingo-oophorectomy. SURGEON: Dr. Juan Hernandez WILDLIFE SCIENCE PROFESSOR: ANESTHESIA: General endotracheal. ESTIMATED BLOOD LOSS: 50 mL. URINE OUTPUT: 100 mL. FINDINGS: 12 cm necrotic appearing left ovary torsed three times around the left IP ligament. Small uterus with 2-3 cm fundal fibroid. Normal appearing right ovary and fallopian tube. Normal upper abdomen. OPERATIVE SUMMARY: The patient taken to the operating room where general endotracheal anesthesia was induced. She was prepped and draped in sterile fashion in the dorsal lithotomy position. A Guerrier catheter was placed. A periumbilical incision made with a scalpel. A Veress needle was placed through this incision while tenting up on the skin of the abdomen. Intra-abdominal location of the Veress needle was assessed with the use of a saline filled syringe. A pneumoperitoneum was created. The Veress needle was removed. A 10 mm trocar using Visiport was inserted through this incision. Two 5 mm suprapubic ports were placed under direct visualization. The patient was placed in Trendelenburg position. A small puncture was made in the cyst and the suction catheter was placed into the cyst cavity. Clear cyst fluid resulted, approximately 400 mL. Once the cyst was decompressed, it was untorsed around the IP ligament. The LigaSure device was used to coagulate and incise the IP ligament, utero-ovarian ligament and proximal fallopian tube. The specimen was placed in an Endo Catch bag and removed through the umbilical port. The fascia at the umbilicus was extended to allow removal of the large specimen. The fascia at the umbilical port was closed with running suture of #0 Vicryl. The skin was closed with #4-0 Monocryl subcuticular sutures. Sponge, instrument and needle counts were correct. The patient was extubated and went to the recovery room in stable condition.
== END 2019-12-21 11:44 | disposition home or self-care (01) | DRG 742 ==
LOC: M ED 20:15 → M ED INP 23:30 → ENRESERV 12-19 00:09 → M PCU 12-19 02:14
PROVIDERS: ADMIT Specialist; ATTEND Specialist
PROC: 0UT64ZZ Resection of Left Fallopian Tube, Percutaneous Endoscopic Approach (ICD-10-PCS; 2019-12-19)
PROC: 0UT14ZZ Resection of Left Ovary, Percutaneous Endoscopic Approach (ICD-10-PCS; principal; 2019-12-19 08:04)
DX: D27.1 Benign neoplasm of left ovary (principal); N83.512 Torsion of left ovary and ovarian pedicle; F41.9 Anxiety disorder, unspecified; E03.9 Hypothyroidism, unspecified; E78.5 Hyperlipidemia, unspecified; F32.9 Major depressive disorder, single episode, unspecified; D25.9 Leiomyoma of uterus, unspecified; M85.80 Other specified disorders of bone density and structure, unspecified site; R73.01 Impaired fasting glucose; E53.8 Deficiency of other specified B group vitamins; Z98.49 Cataract extraction status, unspecified eye

== ENCOUNTER → 2020-01-15 | Outpatient (REF) | payer MEDICARE, OTHER ==
[~2020-01-15] MED LIST changes: +APAP325T4 PO; +B-12100021 PO; +BUPR-321 PO; +CARV6.25 PO; +CYTO5TAB8 PO; +DIPH25CA32 PO; +DORZ2SOL5 OU; +ESCI20TA PO; +HYDR12.55 PO; +HYDR12CA PO; +LEVO88TA3 PO; +MOVA1TAB2 PO; +NYST10CR TOP; +RISP0.5T3 PO; +RISP1SS PO; +TELM1TAB33 PO; +TELM1TAB35 PO; +TRAM50TA2 PO; +VIAC1CHW PO; +XALA0.007 OU
[2020-01-15 16:12] LABS: FREE T4 1.13 NG/DL (0.76-1.46); THYROID STIMULATING HORMONE 4.06 uIU/ML (0.358-3.740)
== END ==
LOC: M SFHCPLAZ 13:46
PROVIDERS: ATTEND Family Medicine
DX: E03.9 Hypothyroidism, unspecified (principal)
CPT/HCPCS: 36415; 84439; 84443; G0463

== ENCOUNTER 2020-02-07 14:53 | Outpatient (RCR) | payer MEDICARE, OTHER | END 2020-02-11 | LOC: M PT 14:53 | PROVIDERS: ATTEND Family Medicine | DX: Z51.89 Encounter for other specified aftercare (principal); R29.898 Other symptoms and signs involving the musculoskeletal system ==

== ENCOUNTER → 2020-03-13 | Outpatient (RCR) | payer MEDICARE, OTHER ==
[~2020-03-13] MED LIST changes: -MOVA1TAB2 PO; +NALO25TA PO
== END ==
LOC: M PT 02-12 12:54
PROVIDERS: ATTEND Family Medicine
DX: R29.898 Other symptoms and signs involving the musculoskeletal system (principal)

== ENCOUNTER 2020-04-10 14:30 | Outpatient (RCR) | payer MEDICARE, OTHER | END 2020-04-13 | LOC: M PT 14:30 | PROVIDERS: ATTEND Family Medicine | DX: R29.898 Other symptoms and signs involving the musculoskeletal system (principal) ==

== ENCOUNTER → 2020-04-17 | Outpatient (CLI) | payer MEDICARE, OTHER ==
[2020-04-17 14:57] LABS: BLOOD UREA NITROGEN 12 MG/DL (7-18); CALCIUM LEVEL 9.7 MG/DL (8.8-10.2); CARBON DIOXIDE LEVEL 31 MEQ/L (21-32); CHLORIDE LEVEL 102 MEQ/L (98-107); GLOMERULAR FILTRATION RATE > 60.0 (>32); GLUCOSE, FASTING 106 MG/DL (70-100); POTASSIUM SERUM 4.2 MEQ/L (3.5-5.1); SODIUM LEVEL 139 MEQ/L (136-145)
== END ==
LOC: M PLALAB 11:11
PROVIDERS: ATTEND Family Medicine
DX: E03.9 Hypothyroidism, unspecified (principal); I10 Essential (primary) hypertension

== ENCOUNTER → 2020-05-18 | Outpatient (CLI) | payer MEDICARE, OTHER ==
--- NOTE | 2020-05-25 09:52 | REPPI ---
LEFT SHOULDER SERIES HISTORY: Left shoulder pain for two weeks. TECHNIQUE: Three views of the left shoulder are performed. FINDINGS: There is no evidence of acute fracture or dislocation. There is mild narrowing at the acromioclavicular and glenohumeral joints. There is mild subchondral cystic change in the humeral head. IMPRESSION: Mild degenerative changes. No fracture or dislocation. MTDD
== END ==
LOC: M PLAIMG 15:44
PROVIDERS: ATTEND Physician Assistant
DX: M19.012 Primary osteoarthritis, left shoulder (principal); M25.512 Pain in left shoulder; F33.1 Major depressive disorder, recurrent, moderate; F41.1 Generalized anxiety disorder
CPT/HCPCS: 73030; 90834; G0463

== ENCOUNTER → 2020-07-13 | Outpatient (RCR) | payer MEDICARE, OTHER ==
[~2020-07-13] MED LIST changes: -BUPR-321 PO; +BUPR100T10 PO; +RISP-7 PO; -RISP0.5T3 PO
== END ==
LOC: M PT 06-15 14:11
PROVIDERS: ATTEND Orthopaedic Surgery
DX: M75.52 Bursitis of left shoulder (principal)

== ENCOUNTER 2020-08-03 14:15 | Outpatient (RCR) | payer MEDICARE, OTHER | END 2020-08-13 | LOC: M PT 14:15 | PROVIDERS: ATTEND Orthopaedic Surgery | DX: M75.52 Bursitis of left shoulder (principal) ==

== ENCOUNTER → 2020-08-20 | Outpatient (REF) | payer MEDICARE, OTHER ==
[2020-08-20 17:26] LABS: BASO % 0.5 % (0.0-1.0); EOS # 0.1 10^3/uL (0.0-0.5); HEMATOCRIT 40.3 % (36.0-47.0); HEMOGLOBIN 12.8 g/dl (12.0-15.5); LYMPH # 1.5 10^3/uL (1.5-5.0); LYMPH % 20.4 % (24.0-44.0); MEAN CORPUSCULAR HEMOGLOBIN 29.2 pg (27.0-33.0); MEAN CORPUSCULAR HGB CONC 31.8 g/dl (32.0-36.5); MONO # 0.4 10^3/uL (0.0-0.8); MONO % 5.7 % (0.0-5.0); NEUTROPHILS # 5.3 10^3/uL (1.5-8.5); NEUTROPHILS % 72.1 % (36.0-66.0); PLATELET COUNT, AUTOMATED 329 10^3/uL (150-450); RED BLOOD COUNT 4.38 10^6/uL (4.00-5.40); WHITE BLOOD COUNT 7.4 10^3/uL (4.0-10.0)
[2020-08-20 17:43] LABS: BLOOD UREA NITROGEN 10 MG/DL (7-18); CALCIUM LEVEL 9.7 MG/DL (8.8-10.2); CARBON DIOXIDE LEVEL 30 MEQ/L (21-32); CHLORIDE LEVEL 104 MEQ/L (98-107); CREATININE FOR GFR 0.66 MG/DL (0.55-1.30); GLOMERULAR FILTRATION RATE > 60.0 (>32); GLUCOSE, FASTING 139 MG/DL (70-100); POTASSIUM SERUM 3.7 MEQ/L (3.5-5.1); SODIUM LEVEL 140 MEQ/L (136-145); THYROID STIMULATING HORMONE 0.197 uIU/ML (0.358-3.740)
== END ==
LOC: M PLALAB 13:36
PROVIDERS: ATTEND Family Medicine
DX: R53.83 Other fatigue (principal); R39.9 Unspecified symptoms and signs involving the genitourinary system
CPT/HCPCS: 36415; 80048; 81002; 84443; 85025; 87086; G0463

== ENCOUNTER → 2020-09-21 | Outpatient (REF) | payer MEDICARE, OTHER ==
[~2020-09-21] MED LIST changes: -ESCI20TA PO; +ESCI20TA16 PO
== END ==
LOC: M SFHCPLAZ 09:54
PROVIDERS: ATTEND Physician Assistant
DX: R06.02 Shortness of breath (principal); Z20.822 Contact with and (suspected) exposure to COVID-19

== ENCOUNTER → 2020-10-01 | Outpatient (CLI) | payer MEDICARE, OTHER ==
--- NOTE | 2020-10-01 17:31 | REPPI ---
INDICATION: R06.09 OTHER FORM OF DYSPNEA. COMPARISON: 04/11/2016. TECHNIQUE: Two views FINDINGS: Lung cummings are adequately inflated. No pleural effusion, lateral pleural thickening, apical scarring or pneumothorax. Some mild chronic interstitial changes are noted with peribronchial thickening that may reflect some reactive air disease bronchitis but no consolidation, nodule or mass. No cardiomegaly, vascular redistribution or edema. The aorta is mildly tortuous but normal for age. Airway is intact. Left atrium is enlarged with elevation of the left mainstem bronchus. Abena and mediastinal contours unchanged. The visualized ribs, clavicles, shoulders and spine are unchanged with degenerative changes at endplates throughout. The upper and mid thoracic spine without compression deformity or destructive lesion. No free air under the diaphragm. IMPRESSION: 1. No acute cardiopulmonary change. Some underlying chronic interstitial changes and peribronchial thickening that may reflect reactive airway disease or bronchitis. No consolidation, effusion cardiomegaly or edema. <Electronically signed by Mina Gilliam > 10/01/20 [id number]
== END ==
LOC: M PLAIMG 11:40
PROVIDERS: ATTEND Family Medicine
DX: R06.09 Other forms of dyspnea (principal)

== ENCOUNTER → 2020-10-07 | Outpatient (CLI) | payer SELFPAY | LOC: M LABSMTC 13:01 | PROVIDERS: ATTEND Pediatrics | DX: Z20.822 Contact with and (suspected) exposure to COVID-19 (principal) ==

== ENCOUNTER → 2020-10-14 | Outpatient (REF) | payer MEDICARE, OTHER | PROVIDERS: ATTEND Internal Medicine | DX: Z20.822 Contact with and (suspected) exposure to COVID-19 (principal) ==

== ENCOUNTER → 2020-10-21 | Outpatient (REF) | payer MEDICARE, OTHER | PROVIDERS: ATTEND Internal Medicine | DX: Z20.822 Contact with and (suspected) exposure to COVID-19 (principal) ==

== ENCOUNTER → 2020-10-26 | Outpatient (REF) ==
[2020-10-26 08:45] LABS: HEMATOCRIT 39.7 % (36.0-47.0); HEMOGLOBIN 12.8 g/dl (12.0-15.5); MEAN CORPUSCULAR HEMOGLOBIN 30.1 pg (27.0-33.0); MEAN CORPUSCULAR HGB CONC 32.2 g/dl (32.0-36.5); MEAN CORPUSCULAR VOLUME 93.4 fl (80.0-96.0); PLATELET COUNT, AUTOMATED 308 10^3/uL (150-450); RED BLOOD COUNT 4.25 10^6/uL (4.00-5.40); WHITE BLOOD COUNT 8.4 10^3/uL (4.0-10.0)
[2020-10-26 09:17] LABS: BLOOD UREA NITROGEN 38 MG/DL (7-18); CALCIUM LEVEL 9.6 MG/DL (8.8-10.2); CARBON DIOXIDE LEVEL 33 MEQ/L (21-32); CHLORIDE LEVEL 103 MEQ/L (98-107); CREATININE FOR GFR 0.82 MG/DL (0.55-1.30); GLOMERULAR FILTRATION RATE > 60.0 (>32); GLUCOSE, FASTING 113 MG/DL (70-100); POTASSIUM SERUM 3.8 MEQ/L (3.5-5.1); SODIUM LEVEL 141 MEQ/L (136-145)
== END ==
PROVIDERS: ATTEND Internal Medicine
DX: E03.9 Hypothyroidism, unspecified (principal); M19.90 Unspecified osteoarthritis, unspecified site; I10 Essential (primary) hypertension

== ENCOUNTER → 2020-11-13 | Outpatient (REF) | payer MEDICARE, OTHER ==
[2020-11-13 22:17] LABS: INFLUENZA A AMPLIFICATION NEGATIVE (NEGATIVE); INFLUENZA B AMPLIFICATION NEGATIVE (NEGATIVE)
== END ==
PROVIDERS: ATTEND Internal Medicine
DX: Z11.59 Encounter for screening for other viral diseases (principal)

== ENCOUNTER → 2020-11-24 | Outpatient (REF) | payer MEDICARE, OTHER | PROVIDERS: ATTEND Internal Medicine | DX: Z20.822 Contact with and (suspected) exposure to COVID-19 (principal) ==

== ENCOUNTER → 2020-12-01 | Outpatient (REF) | payer MEDICARE, OTHER ==
[2020-12-01 11:54] LABS: HEMATOCRIT 40.4 % (36.0-47.0); HEMOGLOBIN 12.7 g/dl (12.0-15.5); MEAN CORPUSCULAR HEMOGLOBIN 29.4 pg (27.0-33.0); MEAN CORPUSCULAR HGB CONC 31.4 g/dl (32.0-36.5); MEAN CORPUSCULAR VOLUME 93.5 fl (80.0-96.0); PLATELET COUNT, AUTOMATED 319 10^3/uL (150-450); RED BLOOD COUNT 4.32 10^6/uL (4.00-5.40); WHITE BLOOD COUNT 7.9 10^3/uL (4.0-10.0)
[2020-12-01 12:20] LABS: BLOOD UREA NITROGEN 21 MG/DL (7-18); CALCIUM LEVEL 9.5 MG/DL (8.8-10.2); CARBON DIOXIDE LEVEL 29 MEQ/L (21-32); CHLORIDE LEVEL 103 MEQ/L (98-107); CREATININE FOR GFR 0.61 MG/DL (0.55-1.30); GLOMERULAR FILTRATION RATE > 60.0 (>32); GLUCOSE, FASTING 162 MG/DL (70-100); POTASSIUM SERUM 3.7 MEQ/L (3.5-5.1); SODIUM LEVEL 139 MEQ/L (136-145)
== END ==
PROVIDERS: ATTEND Internal Medicine
DX: M19.90 Unspecified osteoarthritis, unspecified site (principal); I10 Essential (primary) hypertension; Z20.822 Contact with and (suspected) exposure to COVID-19
CPT/HCPCS: 36415; 80048; 85027; U0003

== ENCOUNTER → 2020-12-30 | Outpatient (REF) | payer MEDICARE, OTHER ==
[2020-12-30 11:13] LABS: HEMATOCRIT 40.4 % (36.0-47.0); HEMOGLOBIN 12.8 g/dl (12.0-15.5); MEAN CORPUSCULAR HGB CONC 31.7 g/dl (32.0-36.5); MEAN CORPUSCULAR VOLUME 94.8 fl (80.0-96.0); PLATELET COUNT, AUTOMATED 310 10^3/uL (150-450); RED BLOOD COUNT 4.26 10^6/uL (4.00-5.40); WHITE BLOOD COUNT 8.6 10^3/uL (4.0-10.0)
[2020-12-30 11:33] LABS: BLOOD UREA NITROGEN 29 MG/DL (7-18); CALCIUM LEVEL 9.5 MG/DL (8.8-10.2); CARBON DIOXIDE LEVEL 30 MEQ/L (21-32); CHLORIDE LEVEL 106 MEQ/L (98-107); CREATININE FOR GFR 0.78 MG/DL (0.55-1.30); GLOMERULAR FILTRATION RATE > 60.0 (>32); GLUCOSE, FASTING 182 MG/DL (70-100); POTASSIUM SERUM 3.9 MEQ/L (3.5-5.1); SODIUM LEVEL 142 MEQ/L (136-145)
== END ==
PROVIDERS: ATTEND Internal Medicine
DX: M19.90 Unspecified osteoarthritis, unspecified site (principal); I10 Essential (primary) hypertension

== ENCOUNTER → 2021-01-28 | Outpatient (REF) | payer MEDICARE, OTHER ==
[2021-01-28 12:24] LABS: BLOOD UREA NITROGEN 27 MG/DL (7-18); CALCIUM LEVEL 9.2 MG/DL (8.8-10.2); CARBON DIOXIDE LEVEL 30 MEQ/L (21-32); CHLORIDE LEVEL 103 MEQ/L (98-107); CREATININE FOR GFR 0.62 MG/DL (0.55-1.30); GLOMERULAR FILTRATION RATE > 60.0 (>32); GLUCOSE, FASTING 145 MG/DL (70-100); POTASSIUM SERUM 3.6 MEQ/L (3.5-5.1); SODIUM LEVEL 139 MEQ/L (136-145)
[2021-01-28 13:09] LABS: HEMATOCRIT 39.2 % (36.0-47.0); HEMOGLOBIN 12.5 g/dl (12.0-15.5); MEAN CORPUSCULAR HEMOGLOBIN 29.9 pg (27.0-33.0); MEAN CORPUSCULAR HGB CONC 31.9 g/dl (32.0-36.5); MEAN CORPUSCULAR VOLUME 93.8 fl (80.0-96.0); PLATELET COUNT, AUTOMATED 299 10^3/uL (150-450); RED BLOOD COUNT 4.18 10^6/uL (4.00-5.40); WHITE BLOOD COUNT 7.3 10^3/uL (4.0-10.0)
== END ==
PROVIDERS: ATTEND Internal Medicine
DX: I10 Essential (primary) hypertension (principal)

== ENCOUNTER → 2021-02-23 | Outpatient (REF) | payer MEDICARE, OTHER ==
[2021-02-23 10:05] LABS: HEMATOCRIT 39.4 % (36.0-47.0); HEMOGLOBIN 12.8 g/dl (12.0-15.5); MEAN CORPUSCULAR HEMOGLOBIN 29.8 pg (27.0-33.0); MEAN CORPUSCULAR HGB CONC 32.5 g/dl (32.0-36.5); MEAN CORPUSCULAR VOLUME 91.8 fl (80.0-96.0); PLATELET COUNT, AUTOMATED 264 10^3/uL (150-450); RED BLOOD COUNT 4.29 10^6/uL (4.00-5.40); WHITE BLOOD COUNT 6.3 10^3/uL (4.0-10.0)
[2021-02-23 10:49] LABS: BLOOD UREA NITROGEN 17 MG/DL (7-18); CALCIUM LEVEL 9.2 MG/DL (8.8-10.2); CARBON DIOXIDE LEVEL 32 MEQ/L (21-32); CHLORIDE LEVEL 103 MEQ/L (98-107); CREATININE FOR GFR 0.64 MG/DL (0.55-1.30); GLOMERULAR FILTRATION RATE > 60.0 (>32); GLUCOSE, FASTING 101 MG/DL (70-100); POTASSIUM SERUM 3.8 MEQ/L (3.5-5.1); SODIUM LEVEL 139 MEQ/L (136-145)
== END ==
PROVIDERS: ATTEND Internal Medicine
DX: E03.9 Hypothyroidism, unspecified (principal); I10 Essential (primary) hypertension

== ENCOUNTER → 2021-03-15 | Outpatient (REF) | payer MEDICARE, OTHER ==
[~2021-03-15] MED LIST changes: +BUPR-364 PO; -BUPR100T10 PO
== END ==
PROVIDERS: ATTEND Internal Medicine
DX: E03.9 Hypothyroidism, unspecified (principal)

== ENCOUNTER → 2021-04-14 | Outpatient (REF) | payer MEDICARE, OTHER ==
[2021-04-14 11:08] LABS: HEMATOCRIT 39.4 % (36.0-47.0); HEMOGLOBIN 12.9 g/dl (12.0-15.5); MEAN CORPUSCULAR HEMOGLOBIN 29.5 pg (27.0-33.0); MEAN CORPUSCULAR HGB CONC 32.7 g/dl (32.0-36.5); MEAN CORPUSCULAR VOLUME 90.2 fl (80.0-96.0); PLATELET COUNT, AUTOMATED 269 10^3/uL (150-450); RED BLOOD COUNT 4.37 10^6/uL (4.00-5.40); WHITE BLOOD COUNT 5.4 10^3/uL (4.0-10.0)
[2021-04-14 11:40] LABS: BLOOD UREA NITROGEN 15 MG/DL (7-18); CALCIUM LEVEL 9.1 MG/DL (8.8-10.2); CARBON DIOXIDE LEVEL 30 MEQ/L (21-32); CHLORIDE LEVEL 105 MEQ/L (98-107); GLOMERULAR FILTRATION RATE > 60.0 (>32); GLUCOSE, FASTING 119 MG/DL (70-100); POTASSIUM SERUM 3.5 MEQ/L (3.5-5.1); SODIUM LEVEL 141 MEQ/L (136-145)
== END ==
PROVIDERS: ATTEND Internal Medicine
DX: I10 Essential (primary) hypertension (principal)

== ENCOUNTER → 2021-05-25 | Outpatient (REF) | payer MEDICARE, OTHER ==
[~2021-05-25] MED LIST changes: -BUPR-364 PO; +BUPR100T10 PO
[2021-05-25 13:03] LABS: HEMATOCRIT 39.7 % (36.0-47.0); MEAN CORPUSCULAR HEMOGLOBIN 29.5 pg (27.0-33.0); MEAN CORPUSCULAR HGB CONC 32.7 g/dl (32.0-36.5); MEAN CORPUSCULAR VOLUME 90.2 fl (80.0-96.0); PLATELET COUNT, AUTOMATED 262 10^3/uL (150-450); WHITE BLOOD COUNT 6.9 10^3/uL (4.0-10.0)
[2021-05-25 13:34] LABS: ALBUMIN 3.2 GM/DL (3.2-5.2); ALT/SGPT 23 U/L (12-78); BILIRUBIN,DIRECT 0.1 MG/DL (0.0-0.2); BILIRUBIN,TOTAL 0.4 MG/DL (0.2-1.0); BLOOD UREA NITROGEN 16 MG/DL (7-18); CALCIUM LEVEL 9.7 MG/DL (8.8-10.2); CARBON DIOXIDE LEVEL 29 MEQ/L (21-32); CHLORIDE LEVEL 104 MEQ/L (98-107); CREATININE FOR GFR 0.65 MG/DL (0.55-1.30); GLOMERULAR FILTRATION RATE > 60.0 (>32); GLUCOSE, FASTING 97 MG/DL (70-100); POTASSIUM SERUM 3.9 MEQ/L (3.5-5.1); SODIUM LEVEL 139 MEQ/L (136-145); TOTAL PROTEIN 6.2 GM/DL (6.4-8.2)
== END ==
PROVIDERS: ATTEND Internal Medicine
DX: E03.9 Hypothyroidism, unspecified (principal); M19.90 Unspecified osteoarthritis, unspecified site; I10 Essential (primary) hypertension; Z79.899 Other long term (current) drug therapy

== ENCOUNTER → 2021-05-26 | Outpatient (CLI) | payer MEDICARE, OTHER ==
[~2021-05-26] MED LIST changes: +GASTROGRAFIN SOLUTION 30ML (Q9963) As Ordered ONE; +ISOVUE-370 76% 100ML VIAL As Ordered ONE
--- NOTE | 2021-05-26 11:25 | REP ---
INDICATION: CHRONIC NAUSEA, HX OF OVARIAN CA. COMPARISON: 12/18/2019 TECHNIQUE: Axial contrast-enhanced images from the lung bases to the pubic symphysis using oral and 100 cc Isovue 370 intravenous contrast material. Delayed images of the abdomen obtained along with coronal and sagittal reformations. This CT examination was performed using the following dose reduction techniques: Automated exposure control, adjustment of mA and/or kv according to the patient's size, and the use of iterative reconstruction technique. FINDINGS: Lung bases are clear. Liver, spleen, pancreas, bilateral adrenal glands and kidneys are normal. Cholelithiasis noted without evidence for acute cholecystitis. The enteric system including stomach, small, and large bowel appears normal. No evidence for obstruction or acute inflammatory process. Normal terminal ileum and appendix are identified in the right lower quadrant. Pelvis demonstrates normal bladder. What appears to be the uterus demonstrates parenchymal calcifications and somewhat lobulated cystic changes possibly representing myomatous disease. The previously identified large septated adnexal cyst and pelvic free fluid on 12/18/2019 is no longer evident, but the remainder of the presumed uterine findings appear stable. No ascites. No free air. No intraperitoneal or retroperitoneal adenopathy. Abdominal aorta and vasculature appear normal. Musculoskeletal structures are intact and without acute osseous abnormality. IMPRESSION: 1. Pelvis demonstrates presumed myomatous changes and parenchymal calcifications to the uterus which should be correlated with physical examination and pelvic ultrasound if necessary. The previously identified large septated cystic lesion and pelvic free fluid identified on 12/18/2019 is no longer evident. 2. Otherwise nonacute findings. No acute abdominopelvic pathology appreciated. 3. Cholelithiasis without acute cholecystitis. <Electronically signed by Martinez Morales > 05/26/21 [id number]
== END ==
LOC: M RAD 08:52
PROVIDERS: ATTEND Physician Assistant
DX: R11.0 Nausea (principal); K80.70 Calculus of gallbladder and bile duct without cholecystitis without obstruction
CPT/HCPCS: 74177; Q9963; Q9967

== ENCOUNTER → 2021-06-18 | Outpatient (REF) | payer MEDICARE, OTHER ==
[~2021-06-18] MED LIST changes: -GASTROGRAFIN SOLUTION 30ML (Q9963) As Ordered ONE; -ISOVUE-370 76% 100ML VIAL As Ordered ONE
[2021-06-18 19:54] LABS: BASO # 0.1 10^3/uL (0.0-0.2); BASO % 0.6 % (0.0-1.0); EOS # 0.6 10^3/uL (0.0-0.5); EOS % 8.1 % (0.0-3.0); HEMATOCRIT 41.2 % (36.0-47.0); HEMOGLOBIN 13.1 g/dl (12.0-15.5); LYMPH # 1.6 10^3/uL (1.5-5.0); LYMPH % 20.4 % (24.0-44.0); MEAN CORPUSCULAR HEMOGLOBIN 29.2 pg (27.0-33.0); MEAN CORPUSCULAR HGB CONC 31.8 g/dl (32.0-36.5); MONO # 0.5 10^3/uL (0.0-0.8); MONO % 6.7 % (2.0-8.0); NEUTROPHILS # 5.1 10^3/uL (1.5-8.5); NEUTROPHILS % 63.9 % (36.0-66.0); PLATELET COUNT, AUTOMATED 290 10^3/uL (150-450); RED BLOOD COUNT 4.48 10^6/uL (4.00-5.40); WHITE BLOOD COUNT 7.9 10^3/uL (4.0-10.0)
[2021-06-18 20:04] LABS: ALBUMIN 3.4 GM/DL (3.2-5.2); ALT/SGPT 27 U/L (12-78); BILIRUBIN,TOTAL 0.3 MG/DL (0.2-1.0); BLOOD UREA NITROGEN 20 MG/DL (7-18); CALCIUM LEVEL 9.4 MG/DL (8.8-10.2); CARBON DIOXIDE LEVEL 33 MEQ/L (21-32); CHLORIDE LEVEL 102 MEQ/L (98-107); CREATININE FOR GFR 0.78 MG/DL (0.55-1.30); GLOMERULAR FILTRATION RATE > 60.0 (>32); GLUCOSE, FASTING 138 MG/DL (70-100); POTASSIUM SERUM 4.1 MEQ/L (3.5-5.1); SODIUM LEVEL 139 MEQ/L (136-145); TOTAL PROTEIN 6.6 GM/DL (6.4-8.2)
[2021-06-18 20:14] LABS: ERYTHROCYTE SEDIMENTATION RATE 7 mm/hr (0-30)
[2021-06-21 16:08] LABS: ANTI DOUBLE STRAND-DNA AB 1 IU/mL (0-9); ANTINUCLEAR ANTIBODIES DIRECT Positive (Negative); RNP ANTIBODIES <0.2 AI (0.0-0.9); SJOGREN'S ANTI SS-A 7.8 AI (0.0-0.9); SJOGREN'S ANTI SS-B <0.2 AI (0.0-0.9); SMITH ANTIBODIES <0.2 AI (0.0-0.9)
== END ==
PROVIDERS: ATTEND Physician Assistant
DX: I77.89 Other specified disorders of arteries and arterioles (principal)

== ENCOUNTER → 2021-07-06 | Outpatient (CLI) | payer MEDICARE, OTHER ==
[~2021-07-06] MED LIST changes: +BUPR-364 PO; -BUPR100T10 PO
== END ==
LOC: M RAD 08:30
PROVIDERS: ATTEND Internal Medicine
DX: M19.90 Unspecified osteoarthritis, unspecified site (principal)

== ENCOUNTER → 2021-07-15 | Outpatient (CLI) | payer MEDICARE, OTHER ==
[~2021-07-15] MED LIST changes: -BUPR-364 PO; +BUPR100T10 PO
--- NOTE | 2021-07-15 15:54 | REP ---
INDICATION: L HIP PAIN. COMPARISON: AP pelvis of 07/06/2021 TECHNIQUE: AP and frog-lateral views FINDINGS: There is slight femoral head marginal osteophytosis. The hip joint space is mildly narrowed. There is no acute fracture, dislocation, or subluxation. There is mild buttressing. IMPRESSION: No acute osseous abnormality. <Electronically signed by Luis Pimentel > 07/15/21 [id number]
== END ==
LOC: M RAD 14:46
PROVIDERS: ATTEND Internal Medicine
DX: M25.552 Pain in left hip (principal)

== ENCOUNTER → 2021-07-16 | Outpatient (REF) | payer MEDICARE, OTHER ==
[2021-07-16 10:33] LABS: BASO # 0.1 10^3/uL (0.0-0.2); BASO % 0.7 % (0.0-1.0); EOS # 0.5 10^3/uL (0.0-0.5); EOS % 6.9 % (0.0-3.0); HEMATOCRIT 41.1 % (36.0-47.0); HEMOGLOBIN 13.4 g/dl (12.0-15.5); LYMPH # 1.9 10^3/uL (1.5-5.0); LYMPH % 26.9 % (24.0-44.0); MEAN CORPUSCULAR HGB CONC 32.6 g/dl (32.0-36.5); MEAN CORPUSCULAR VOLUME 91.9 fl (80.0-96.0); MONO # 0.5 10^3/uL (0.0-0.8); MONO % 6.6 % (2.0-8.0); NEUTROPHILS # 4.1 10^3/uL (1.5-8.5); NEUTROPHILS % 58.3 % (36.0-66.0); PLATELET COUNT, AUTOMATED 359 10^3/uL (150-450); RED BLOOD COUNT 4.47 10^6/uL (4.00-5.40)
[2021-07-16 11:02] LABS: ALBUMIN 3.1 GM/DL (3.2-5.2); ALT/SGPT 27 U/L (12-78); BILIRUBIN,TOTAL 0.3 MG/DL (0.2-1.0); BLOOD UREA NITROGEN 19 MG/DL (7-18); CALCIUM LEVEL 9.1 MG/DL (8.8-10.2); CARBON DIOXIDE LEVEL 30 MEQ/L (21-32); CHLORIDE LEVEL 105 MEQ/L (98-107); CHOLESTEROL LEVEL 186 MG/DL (< 200); CPK CREATINE PHOSPHOKINASE 22 U/L (26-192); CREATININE FOR GFR 0.64 MG/DL (0.55-1.30); GLOMERULAR FILTRATION RATE > 60.0 (>32); GLUCOSE, FASTING 103 MG/DL (70-100); LDH LACTATE DEHYDROGENASE 156 U/L (84-246); RHEUMATOID FACTOR QUANT < 10.0 IU/ML (<15.0); SODIUM LEVEL 141 MEQ/L (136-145); TOTAL PROTEIN 6.3 GM/DL (6.4-8.2); TRIGLYCERIDES LEVEL 162 MG/DL (<150)
== END ==
PROVIDERS: ATTEND Internal Medicine
DX: M25.559 Pain in unspecified hip (principal); Z79.899 Other long term (current) drug therapy

== ENCOUNTER → 2021-07-19 | Outpatient (REF) | payer MEDICARE, OTHER ==
[2021-07-19 12:21] LABS: COMPLEMENT C3 140 MG/DL (90-180); COMPLEMENT C4 20 MG/DL (10-40)
[2021-07-21 10:11] LABS: ANTI DS-DNA AB Negative (Negative); CARDIOLIPIN IGA ANTIBODY <9 APL U/mL (0-11); CARDIOLIPIN IGG ANTIBODY <9 GPL U/mL (0-14); CARDIOLIPIN IGM ANTIBODY <9 MPL U/mL (0-12)
== END ==
PROVIDERS: ATTEND Internal Medicine
DX: I77.6 Arteritis, unspecified (principal)

== ENCOUNTER → 2021-08-12 | Outpatient (REF) | payer MEDICARE, OTHER ==
[~2021-08-12] MED LIST changes: +BUPR-364 PO; -BUPR100T10 PO
== END ==
LOC: M LAB REF 15:37
PROVIDERS: ATTEND Physician Assistant
DX: L30.8 Other specified dermatitis (principal)
CPT/HCPCS: 11104; 11105; 88300; G0463

== ENCOUNTER → 2021-09-09 | Outpatient (REF) | payer MEDICARE, OTHER ==
[2021-09-09 17:42] LABS: BASO % 0.1 % (0.0-1.0); HEMATOCRIT 39.2 % (36.0-47.0); HEMOGLOBIN 12.7 g/dl (12.0-15.5); LYMPH # 0.8 10^3/uL (1.5-5.0); MEAN CORPUSCULAR HGB CONC 32.4 g/dl (32.0-36.5); MEAN CORPUSCULAR VOLUME 92.5 fl (80.0-96.0); MONO # 0.1 10^3/uL (0.0-0.8); NEUTROPHILS # 9.8 10^3/uL (1.5-8.5); NEUTROPHILS % 91.3 % (36.0-66.0); PLATELET COUNT, AUTOMATED 298 10^3/uL (150-450); RED BLOOD COUNT 4.24 10^6/uL (4.00-5.40); WHITE BLOOD COUNT 10.7 10^3/uL (4.0-10.0)
[2021-09-09 18:11] LABS: ALBUMIN 3.1 GM/DL (3.2-5.2); ALT/SGPT 32 U/L (12-78); BILIRUBIN,TOTAL 0.4 MG/DL (0.2-1.0); BLOOD UREA NITROGEN 31 MG/DL (7-18); CALCIUM LEVEL 9.6 MG/DL (8.8-10.2); CARBON DIOXIDE LEVEL 31 MEQ/L (21-32); CHLORIDE LEVEL 102 MEQ/L (98-107); GLOMERULAR FILTRATION RATE > 60.0 (>32); GLUCOSE, FASTING 175 MG/DL (70-100); POTASSIUM SERUM 3.6 MEQ/L (3.5-5.1); SODIUM LEVEL 143 MEQ/L (136-145); TOTAL PROTEIN 5.8 GM/DL (6.4-8.2)
[2021-09-10 11:12] LABS: HEPATITIS B SURFACE ANTIGEN NEGATIVE (NEGATIVE)
[2021-09-10 11:39] LABS: HEPATITIS C VIRUS ABY INDEX < 0.0 INDEX (<0.8)
[2021-09-10 11:40] LABS: HEPATITIS B CORE ANTIBODY IGM NEGATIVE (NEGATIVE)
[2021-09-10 11:41] LABS: HIV 1&2 SCREEN CENTAUR NEGATIVE (NEGATIVE)
== END ==
PROVIDERS: ATTEND Internal Medicine
DX: L12.0 Bullous pemphigoid (principal)

== ENCOUNTER → 2021-09-13 | Outpatient (REF) | payer MEDICARE, OTHER ==
[2021-09-13 11:28] LABS: HEMATOCRIT 40.4 % (36.0-47.0); HEMOGLOBIN 12.9 g/dl (12.0-15.5); MEAN CORPUSCULAR HEMOGLOBIN 29.7 pg (27.0-33.0); MEAN CORPUSCULAR HGB CONC 31.9 g/dl (32.0-36.5); MEAN CORPUSCULAR VOLUME 92.9 fl (80.0-96.0); PLATELET COUNT, AUTOMATED 293 10^3/uL (150-450); RED BLOOD COUNT 4.35 10^6/uL (4.00-5.40); WHITE BLOOD COUNT 10.6 10^3/uL (4.0-10.0)
[2021-09-13 12:13] LABS: ALBUMIN 2.8 GM/DL (3.2-5.2); ALT/SGPT 51 U/L (12-78); BILIRUBIN,TOTAL 0.5 MG/DL (0.2-1.0); BLOOD UREA NITROGEN 27 MG/DL (7-18); CALCIUM LEVEL 9.4 MG/DL (8.8-10.2); CARBON DIOXIDE LEVEL 30 MEQ/L (21-32); CHLORIDE LEVEL 104 MEQ/L (98-107); CREATININE FOR GFR 0.71 MG/DL (0.55-1.30); GLOMERULAR FILTRATION RATE > 60.0 (>32); GLUCOSE, FASTING 109 MG/DL (70-100); POTASSIUM SERUM 3.5 MEQ/L (3.5-5.1); SODIUM LEVEL 142 MEQ/L (136-145); TOTAL PROTEIN 5.7 GM/DL (6.4-8.2)
== END ==
PROVIDERS: ATTEND Internal Medicine
DX: M19.90 Unspecified osteoarthritis, unspecified site (principal); I10 Essential (primary) hypertension; E03.9 Hypothyroidism, unspecified

== ENCOUNTER → 2021-09-15 | Outpatient (REF) | payer MEDICARE, OTHER ==
[2021-09-15 13:11] LABS: HEMATOCRIT 38.7 % (36.0-47.0); HEMOGLOBIN 12.5 g/dl (12.0-15.5); MEAN CORPUSCULAR HEMOGLOBIN 30.3 pg (27.0-33.0); MEAN CORPUSCULAR HGB CONC 32.3 g/dl (32.0-36.5); MEAN CORPUSCULAR VOLUME 93.7 fl (80.0-96.0); PLATELET COUNT, AUTOMATED 263 10^3/uL (150-450); RED BLOOD COUNT 4.13 10^6/uL (4.00-5.40); WHITE BLOOD COUNT 10.5 10^3/uL (4.0-10.0)
[2021-09-15 14:23] LABS: ALBUMIN 2.8 GM/DL (3.2-5.2); ALT/SGPT 68 U/L (12-78); BILIRUBIN,TOTAL 0.5 MG/DL (0.2-1.0); BLOOD UREA NITROGEN 32 MG/DL (7-18); CALCIUM LEVEL 9.4 MG/DL (8.8-10.2); CARBON DIOXIDE LEVEL 30 MEQ/L (21-32); CHLORIDE LEVEL 102 MEQ/L (98-107); CREATININE FOR GFR 0.81 MG/DL (0.55-1.30); GLOMERULAR FILTRATION RATE > 60.0 (>32); GLUCOSE, FASTING 104 MG/DL (70-100); POTASSIUM SERUM 3.7 MEQ/L (3.5-5.1); SODIUM LEVEL 140 MEQ/L (136-145); TOTAL PROTEIN 5.4 GM/DL (6.4-8.2)
== END ==
PROVIDERS: ATTEND Internal Medicine
DX: I10 Essential (primary) hypertension (principal)

== ENCOUNTER → 2021-09-20 | Outpatient (REF) | payer MEDICARE, OTHER | PROVIDERS: ATTEND Internal Medicine | DX: J06.9 Acute upper respiratory infection, unspecified (principal) ==

== ENCOUNTER → 2021-09-29 | Outpatient (REF) | payer MEDICARE, OTHER ==
[2021-09-29 11:46] LABS: HEMATOCRIT 39.1 % (36.0-47.0); HEMOGLOBIN 12.3 g/dl (12.0-15.5); MEAN CORPUSCULAR HGB CONC 31.5 g/dl (32.0-36.5); MEAN CORPUSCULAR VOLUME 95.4 fl (80.0-96.0); PLATELET COUNT, AUTOMATED 284 10^3/uL (150-450); WHITE BLOOD COUNT 11.1 10^3/uL (4.0-10.0)
[2021-09-29 12:13] LABS: ALBUMIN 2.7 GM/DL (3.2-5.2); ALT/SGPT 113 U/L (12-78); BILIRUBIN,TOTAL 0.4 MG/DL (0.2-1.0); BLOOD UREA NITROGEN 29 MG/DL (7-18); CALCIUM LEVEL 9.3 MG/DL (8.8-10.2); CARBON DIOXIDE LEVEL 31 MEQ/L (21-32); CHLORIDE LEVEL 103 MEQ/L (98-107); CREATININE FOR GFR 0.71 MG/DL (0.55-1.30); GLOMERULAR FILTRATION RATE > 60.0 (>32); GLUCOSE, FASTING 108 MG/DL (70-100); POTASSIUM SERUM 3.5 MEQ/L (3.5-5.1); SODIUM LEVEL 141 MEQ/L (136-145); TOTAL PROTEIN 5.7 GM/DL (6.4-8.2)
== END ==
PROVIDERS: ATTEND Internal Medicine
DX: I10 Essential (primary) hypertension (principal)

== ENCOUNTER → 2021-10-05 | Outpatient (REF) | payer MEDICARE, OTHER | PROVIDERS: ATTEND Physician Assistant | DX: Z53.8 Procedure and treatment not carried out for other reasons (principal) ==

== ENCOUNTER → 2021-10-08 | Outpatient (REF) | payer MEDICARE, OTHER | PROVIDERS: ATTEND Internal Medicine | DX: J02.9 Acute pharyngitis, unspecified (principal) ==

== ENCOUNTER → 2021-10-18 | Outpatient (REF) | payer MEDICARE, OTHER | PROVIDERS: ATTEND Internal Medicine | DX: E03.9 Hypothyroidism, unspecified (principal) ==

== ENCOUNTER → 2021-10-20 | Outpatient (REF) | payer MEDICARE, OTHER ==
[2021-10-20 09:58] LABS: HEMATOCRIT 37.9 % (36.0-47.0); HEMOGLOBIN 11.9 g/dl (12.0-15.5); MEAN CORPUSCULAR HEMOGLOBIN 30.4 pg (27.0-33.0); MEAN CORPUSCULAR HGB CONC 31.4 g/dl (32.0-36.5); MEAN CORPUSCULAR VOLUME 96.9 fl (80.0-96.0); PLATELET COUNT, AUTOMATED 289 10^3/uL (150-450); RED BLOOD COUNT 3.91 10^6/uL (4.00-5.40); WHITE BLOOD COUNT 10.5 10^3/uL (4.0-10.0)
[2021-10-20 10:27] LABS: ALBUMIN 2.7 GM/DL (3.2-5.2); ALT/SGPT 59 U/L (12-78); BILIRUBIN,TOTAL 0.4 MG/DL (0.2-1.0); BLOOD UREA NITROGEN 30 MG/DL (7-18); CALCIUM LEVEL 9.4 MG/DL (8.8-10.2); CARBON DIOXIDE LEVEL 35 MEQ/L (21-32); CHLORIDE LEVEL 101 MEQ/L (98-107); CREATININE FOR GFR 0.71 MG/DL (0.55-1.30); GLOMERULAR FILTRATION RATE > 60.0 (>32); GLUCOSE, FASTING 128 MG/DL (70-100); POTASSIUM SERUM 3.7 MEQ/L (3.5-5.1); SODIUM LEVEL 139 MEQ/L (136-145); TOTAL PROTEIN 5.5 GM/DL (6.4-8.2)
== END ==
PROVIDERS: ATTEND Physician Assistant
DX: E21.4 Other specified disorders of parathyroid gland (principal)

== ENCOUNTER → 2021-11-03 | Outpatient (REF) | payer MEDICARE, OTHER ==
[2021-11-03 10:21] LABS: MEAN CORPUSCULAR HEMOGLOBIN 30.3 pg (27.0-33.0); MEAN CORPUSCULAR HGB CONC 31.6 g/dl (32.0-36.5); PLATELET COUNT, AUTOMATED 277 10^3/uL (150-450); RED BLOOD COUNT 3.96 10^6/uL (4.00-5.40); WHITE BLOOD COUNT 8.4 10^3/uL (4.0-10.0)
[2021-11-03 10:41] LABS: ALBUMIN 2.8 GM/DL (3.2-5.2); ALT/SGPT 59 U/L (12-78); BILIRUBIN,TOTAL 0.4 MG/DL (0.2-1.0); BLOOD UREA NITROGEN 24 MG/DL (7-18); CALCIUM LEVEL 9.6 MG/DL (8.8-10.2); CARBON DIOXIDE LEVEL 34 MEQ/L (21-32); CHLORIDE LEVEL 105 MEQ/L (98-107); GLOMERULAR FILTRATION RATE > 60.0 (>32); GLUCOSE, FASTING 119 MG/DL (70-100); POTASSIUM SERUM 3.8 MEQ/L (3.5-5.1); SODIUM LEVEL 143 MEQ/L (136-145); TOTAL PROTEIN 5.3 GM/DL (6.4-8.2)
== END ==
PROVIDERS: ATTEND Physician Assistant
DX: L12.0 Bullous pemphigoid (principal)

== ENCOUNTER → 2021-11-09 | Outpatient (REF) | payer MEDICARE, OTHER ==
[2021-11-09 17:58] LABS: HEMOGLOBIN 12.4 g/dl (12.0-15.5); MEAN CORPUSCULAR HEMOGLOBIN 30.6 pg (27.0-33.0); MEAN CORPUSCULAR HGB CONC 31.8 g/dl (32.0-36.5); MEAN CORPUSCULAR VOLUME 96.3 fl (80.0-96.0); PLATELET COUNT, AUTOMATED 289 10^3/uL (150-450); RED BLOOD COUNT 4.05 10^6/uL (4.00-5.40); WHITE BLOOD COUNT 9.4 10^3/uL (4.0-10.0)
[2021-11-09 18:28] LABS: ALBUMIN 2.9 GM/DL (3.2-5.2); ALT/SGPT 69 U/L (12-78); BILIRUBIN,TOTAL 0.4 MG/DL (0.2-1.0); BLOOD UREA NITROGEN 29 MG/DL (7-18); CALCIUM LEVEL 9.4 MG/DL (8.8-10.2); CARBON DIOXIDE LEVEL 29 MEQ/L (21-32); CHLORIDE LEVEL 103 MEQ/L (98-107); CREATININE FOR GFR 0.82 MG/DL (0.55-1.30); GLOMERULAR FILTRATION RATE > 60.0 (>32); GLUCOSE, FASTING 280 MG/DL (70-100); SODIUM LEVEL 140 MEQ/L (136-145); TOTAL PROTEIN 5.8 GM/DL (6.4-8.2)
== END ==
PROVIDERS: ATTEND Internal Medicine
DX: L12.0 Bullous pemphigoid (principal)

== ENCOUNTER → 2021-11-10 | Outpatient (REF) | payer MEDICARE, OTHER ==
[2021-11-10 11:04] LABS: HEMATOCRIT 36.1 % (36.0-47.0); HEMOGLOBIN 11.7 g/dl (12.0-15.5); MEAN CORPUSCULAR HEMOGLOBIN 30.7 pg (27.0-33.0); MEAN CORPUSCULAR HGB CONC 32.4 g/dl (32.0-36.5); MEAN CORPUSCULAR VOLUME 94.8 fl (80.0-96.0); PLATELET COUNT, AUTOMATED 268 10^3/uL (150-450); RED BLOOD COUNT 3.81 10^6/uL (4.00-5.40); WHITE BLOOD COUNT 7.6 10^3/uL (4.0-10.0)
[2021-11-10 11:33] LABS: ALBUMIN 2.7 GM/DL (3.2-5.2); ALT/SGPT 60 U/L (12-78); BILIRUBIN,TOTAL 0.3 MG/DL (0.2-1.0); BLOOD UREA NITROGEN 27 MG/DL (7-18); CALCIUM LEVEL 9.6 MG/DL (8.8-10.2); CARBON DIOXIDE LEVEL 32 MEQ/L (21-32); CHLORIDE LEVEL 107 MEQ/L (98-107); CREATININE FOR GFR 0.79 MG/DL (0.55-1.30); GLOMERULAR FILTRATION RATE > 60.0 (>32); GLUCOSE, FASTING 134 MG/DL (70-100); POTASSIUM SERUM 3.6 MEQ/L (3.5-5.1); SODIUM LEVEL 144 MEQ/L (136-145); TOTAL PROTEIN 5.3 GM/DL (6.4-8.2)
== END ==
PROVIDERS: ATTEND Physician Assistant
DX: I50.9 Heart failure, unspecified (principal)

== ENCOUNTER → 2021-11-29 | Outpatient (REF) | payer MEDICARE, OTHER ==
[~2021-11-29] MED LIST changes: +BUPR-70 PO; -BUPR100T3 PO
== END ==
PROVIDERS: ATTEND Internal Medicine
DX: E03.9 Hypothyroidism, unspecified (principal)

== ENCOUNTER → 2021-12-06 | Outpatient (REF) | payer MEDICARE, OTHER ==
[2021-12-06 12:07] LABS: HEMATOCRIT 33.7 % (36.0-47.0); HEMOGLOBIN 10.7 g/dl (12.0-15.5); MEAN CORPUSCULAR HEMOGLOBIN 30.8 pg (27.0-33.0); MEAN CORPUSCULAR HGB CONC 31.8 g/dl (32.0-36.5); MEAN CORPUSCULAR VOLUME 97.1 fl (80.0-96.0); PLATELET COUNT, AUTOMATED 281 10^3/uL (150-450); RED BLOOD COUNT 3.47 10^6/uL (4.00-5.40); WHITE BLOOD COUNT 7.6 10^3/uL (4.0-10.0)
[2021-12-06 12:34] LABS: ALBUMIN 2.7 GM/DL (3.2-5.2); ALT/SGPT 30 U/L (12-78); BILIRUBIN,TOTAL 0.3 MG/DL (0.2-1.0); BLOOD UREA NITROGEN 26 MG/DL (7-18); CALCIUM LEVEL 9.9 MG/DL (8.8-10.2); CARBON DIOXIDE LEVEL 33 MEQ/L (21-32); CHLORIDE LEVEL 106 MEQ/L (98-107); CREATININE FOR GFR 0.53 MG/DL (0.55-1.30); GLOMERULAR FILTRATION RATE > 60.0 (>32); GLUCOSE, FASTING 103 MG/DL (70-100); POTASSIUM SERUM 3.9 MEQ/L (3.5-5.1); SODIUM LEVEL 144 MEQ/L (136-145); TOTAL PROTEIN 5.2 GM/DL (6.4-8.2)
== END ==
PROVIDERS: ATTEND Physician Assistant
DX: L12.0 Bullous pemphigoid (principal)

== ENCOUNTER → 2022-01-03 | Outpatient (REF) | payer MEDICARE, OTHER ==
[2022-01-03 12:00] LABS: BASO % 0.6 % (0.0-1.0); EOS # 0.1 10^3/uL (0.0-0.5); EOS % 2.1 % (0.0-3.0); HEMATOCRIT 37.2 % (36.0-47.0); LYMPH # 1.7 10^3/uL (1.5-5.0); LYMPH % 25.7 % (24.0-44.0); MEAN CORPUSCULAR HEMOGLOBIN 31.1 pg (27.0-33.0); MEAN CORPUSCULAR HGB CONC 32.3 g/dl (32.0-36.5); MEAN CORPUSCULAR VOLUME 96.4 fl (80.0-96.0); MONO # 0.6 10^3/uL (0.0-0.8); MONO % 8.4 % (2.0-8.0); NEUTROPHILS # 4.3 10^3/uL (1.5-8.5); NEUTROPHILS % 62.8 % (36.0-66.0); PLATELET COUNT, AUTOMATED 277 10^3/uL (150-450); RED BLOOD COUNT 3.86 10^6/uL (4.00-5.40); WHITE BLOOD COUNT 6.8 10^3/uL (4.0-10.0)
[2022-01-03 12:37] LABS: ALBUMIN 2.8 GM/DL (3.2-5.2); ALT/SGPT 21 U/L (12-78); BILIRUBIN,TOTAL 0.5 MG/DL (0.2-1.0); BLOOD UREA NITROGEN 23 MG/DL (7-18); CALCIUM LEVEL 9.2 MG/DL (8.8-10.2); CARBON DIOXIDE LEVEL 30 MEQ/L (21-32); CHLORIDE LEVEL 104 MEQ/L (98-107); CREATININE FOR GFR 0.73 MG/DL (0.55-1.30); GLOMERULAR FILTRATION RATE > 60.0 (>32); GLUCOSE, FASTING 96 MG/DL (70-100); POTASSIUM SERUM 3.6 MEQ/L (3.5-5.1); SODIUM LEVEL 140 MEQ/L (136-145); TOTAL PROTEIN 5.9 GM/DL (6.4-8.2)
== END ==
PROVIDERS: ATTEND Internal Medicine
DX: L12.0 Bullous pemphigoid (principal)

== ENCOUNTER → 2022-01-26 | Outpatient (REF) | payer MEDICARE, OTHER ==
[2022-01-26 10:59] LABS: HEMATOCRIT 34.6 % (36.0-47.0); MEAN CORPUSCULAR HEMOGLOBIN 30.1 pg (27.0-33.0); MEAN CORPUSCULAR HGB CONC 31.8 g/dl (32.0-36.5); MEAN CORPUSCULAR VOLUME 94.8 fl (80.0-96.0); PLATELET COUNT, AUTOMATED 268 10^3/uL (150-450); RED BLOOD COUNT 3.65 10^6/uL (4.00-5.40); WHITE BLOOD COUNT 5.2 10^3/uL (4.0-10.0)
[2022-01-26 11:34] LABS: ALBUMIN 2.5 GM/DL (3.2-5.2); ALT/SGPT 16 U/L (12-78); BILIRUBIN,TOTAL 0.2 MG/DL (0.2-1.0); BLOOD UREA NITROGEN 21 MG/DL (7-18); CALCIUM LEVEL 8.7 MG/DL (8.8-10.2); CARBON DIOXIDE LEVEL 32 MEQ/L (21-32); CHLORIDE LEVEL 107 MEQ/L (98-107); CREATININE FOR GFR 0.73 MG/DL (0.55-1.30); GLOMERULAR FILTRATION RATE > 60.0 (>32); GLUCOSE, FASTING 124 MG/DL (70-100); POTASSIUM SERUM 3.8 MEQ/L (3.5-5.1); SODIUM LEVEL 144 MEQ/L (136-145); TOTAL PROTEIN 5.2 GM/DL (6.4-8.2)
== END ==
PROVIDERS: ATTEND Internal Medicine
DX: M19.90 Unspecified osteoarthritis, unspecified site (principal); I10 Essential (primary) hypertension

== ENCOUNTER → 2022-03-30 | Outpatient (REF) | payer MEDICARE, OTHER ==
[~2022-03-30] MED LIST changes: +NYST-13 TOP; -NYST10CR TOP
[2022-03-30 11:49] LABS: HEMATOCRIT 35.4 % (36.0-47.0); HEMOGLOBIN 11.6 g/dl (12.0-15.5); MEAN CORPUSCULAR HGB CONC 32.8 g/dl (32.0-36.5); MEAN CORPUSCULAR VOLUME 91.5 fl (80.0-96.0); PLATELET COUNT, AUTOMATED 260 10^3/uL (150-450); RED BLOOD COUNT 3.87 10^6/uL (4.00-5.40); WHITE BLOOD COUNT 6.1 10^3/uL (4.0-10.0)
[2022-03-30 13:01] LABS: ALT/SGPT 26 U/L (12-78); BILIRUBIN,TOTAL 0.5 MG/DL (0.2-1.0); BLOOD UREA NITROGEN 27 MG/DL (7-18); CALCIUM LEVEL 9.7 MG/DL (8.8-10.2); CARBON DIOXIDE LEVEL 29 MEQ/L (21-32); CHLORIDE LEVEL 106 MEQ/L (98-107); CREATININE FOR GFR 0.93 MG/DL (0.55-1.30); GLOMERULAR FILTRATION RATE > 60.0 (>32); GLUCOSE, FASTING 102 MG/DL (70-100); POTASSIUM SERUM 4.3 MEQ/L (3.5-5.1); SODIUM LEVEL 138 MEQ/L (136-145); TOTAL PROTEIN 5.5 GM/DL (6.4-8.2)
== END ==
PROVIDERS: ATTEND Internal Medicine
DX: E78.5 Hyperlipidemia, unspecified (principal)

== ENCOUNTER → 2022-04-07 | Outpatient (REF) | payer MEDICARE, OTHER | LOC: M SFHCDERM 16:58 | PROVIDERS: ATTEND Nurse Practitioner Family | DX: L12.0 Bullous pemphigoid (principal) ==

== ENCOUNTER → 2022-06-01 | Outpatient (REF) | payer MEDICARE, OTHER ==
[2022-06-01 11:41] LABS: HEMATOCRIT 36.4 % (36.0-47.0); HEMOGLOBIN 11.6 g/dl (12.0-15.5); MEAN CORPUSCULAR HEMOGLOBIN 29.4 pg (27.0-33.0); MEAN CORPUSCULAR HGB CONC 31.9 g/dl (32.0-36.5); MEAN CORPUSCULAR VOLUME 92.4 fl (80.0-96.0); PLATELET COUNT, AUTOMATED 266 10^3/uL (150-450); RED BLOOD COUNT 3.94 10^6/uL (4.00-5.40); WHITE BLOOD COUNT 5.8 10^3/uL (4.0-10.0)
[2022-06-01 12:28] LABS: ALT/SGPT 36 U/L (12-78); BILIRUBIN,TOTAL 0.4 MG/DL (0.2-1.0); BLOOD UREA NITROGEN 24 MG/DL (7-18); CALCIUM LEVEL 9.3 MG/DL (8.8-10.2); CARBON DIOXIDE LEVEL 32 MEQ/L (21-32); CHLORIDE LEVEL 107 MEQ/L (98-107); CREATININE FOR GFR 0.83 MG/DL (0.55-1.30); GLOMERULAR FILTRATION RATE > 60.0 (>32); GLUCOSE, FASTING 106 MG/DL (70-100); POTASSIUM SERUM 4.1 MEQ/L (3.5-5.1); SODIUM LEVEL 141 MEQ/L (136-145); TOTAL PROTEIN 5.7 GM/DL (6.4-8.2)
== END ==
PROVIDERS: ATTEND Internal Medicine
DX: M19.90 Unspecified osteoarthritis, unspecified site (principal); I10 Essential (primary) hypertension

== ENCOUNTER → 2022-07-01 | Outpatient (REF) | payer MEDICARE, OTHER ==
[2022-07-01 17:13] LABS: HEMATOCRIT 38.3 % (36.0-47.0); HEMOGLOBIN 12.4 g/dl (12.0-15.5); MEAN CORPUSCULAR HEMOGLOBIN 29.7 pg (27.0-33.0); MEAN CORPUSCULAR HGB CONC 32.4 g/dl (32.0-36.5); MEAN CORPUSCULAR VOLUME 91.8 fl (80.0-96.0); PLATELET COUNT, AUTOMATED 289 10^3/uL (150-450); RED BLOOD COUNT 4.17 10^6/uL (4.00-5.40); WHITE BLOOD COUNT 7.3 10^3/uL (4.0-10.0)
[2022-07-01 17:44] LABS: CARBON DIOXIDE LEVEL 28 MMOL/L (20-31); CHLORIDE LEVEL 106 MMOL/L (98-107); POTASSIUM SERUM 3.9 MMOL/L (3.5-5.1); SODIUM LEVEL 143 MMOL/L (136-145)
[2022-07-01 17:50] LABS: BLOOD UREA NITROGEN 26 MG/DL (9-23); CALCIUM LEVEL 9.9 MG/DL (8.3-10.6); CREATININE FOR GFR 0.61 MG/DL (0.55-1.30); GLOMERULAR FILTRATION RATE > 60.0 (>32); GLUCOSE, FASTING 160 MG/DL (74-106)
== END ==
LOC: M LAB 16:27
PROVIDERS: ATTEND Internal Medicine
DX: R19.7 Diarrhea, unspecified (principal)

== ENCOUNTER → 2022-09-12 | Outpatient (REF) | payer MEDICARE ==
[~2022-09-12] MED LIST changes: +DIPH-435 PO; -DIPH25CA32 PO
[2022-09-12 10:53] LABS: BASO % 0.6 % (0.0-1.0); EOS # 0.2 10^3/uL (0.0-0.5); EOS % 2.2 % (0.0-3.0); HEMOGLOBIN 12.8 g/dl (12.0-15.5); LYMPH # 1.7 10^3/uL (1.5-5.0); LYMPH % 23.8 % (24.0-44.0); MEAN CORPUSCULAR HEMOGLOBIN 29.5 pg (27.0-33.0); MEAN CORPUSCULAR HGB CONC 31.2 g/dl (32.0-36.5); MEAN CORPUSCULAR VOLUME 94.5 fl (80.0-96.0); MONO # 0.4 10^3/uL (0.0-0.8); NEUTROPHILS # 4.9 10^3/uL (1.5-8.5); NEUTROPHILS % 68.3 % (36.0-66.0); PLATELET COUNT, AUTOMATED 273 10^3/uL (150-450); RED BLOOD COUNT 4.34 10^6/uL (4.00-5.40); WHITE BLOOD COUNT 7.1 10^3/uL (4.0-10.0)
[2022-09-12 11:21] LABS: ALBUMIN 3.4 G/DL (3.2-5.2); ALKALINE PHOSPHATASE 102 U/L (46-116); ALT/SGPT 32 U/L (7.0-40); AST/SGOT 23 U/L (<34); BILIRUBIN,TOTAL 0.4 MG/DL (0.3-1.2); BLOOD UREA NITROGEN 27 MG/DL (9-23); CALCIUM LEVEL 9.7 MG/DL (8.3-10.6); CARBON DIOXIDE LEVEL 27 MMOL/L (20-31); CHLORIDE LEVEL 106 MMOL/L (98-107); CREATININE FOR GFR 0.71 MG/DL (0.55-1.30); GLOMERULAR FILTRATION RATE > 60.0 (>32); GLUCOSE, FASTING 127 MG/DL (74-106); POTASSIUM SERUM 3.8 MMOL/L (3.5-5.1); SODIUM LEVEL 142 MMOL/L (136-145); TOTAL PROTEIN 6.2 G/DL (5.7-8.2)
[2022-09-12 11:23] LABS: FOLATE > 24.00 NG/ML (>5.4)
== END ==
PROVIDERS: ATTEND Physician Assistant
DX: L12.0 Bullous pemphigoid (principal); Z79.899 Other long term (current) drug therapy

== ENCOUNTER → 2022-09-28 | Outpatient (REF) | payer MEDICARE ==
[2022-09-28 11:08] LABS: HEMATOCRIT 36.5 % (36.0-47.0); HEMOGLOBIN 11.9 g/dl (12.0-15.5); MEAN CORPUSCULAR HEMOGLOBIN 29.8 pg (27.0-33.0); MEAN CORPUSCULAR HGB CONC 32.6 g/dl (32.0-36.5); MEAN CORPUSCULAR VOLUME 91.3 fl (80.0-96.0); PLATELET COUNT, AUTOMATED 259 10^3/uL (150-450); WHITE BLOOD COUNT 6.5 10^3/uL (4.0-10.0)
[2022-09-28 14:53] LABS: ALBUMIN 3.1 G/DL (3.2-5.2); ALKALINE PHOSPHATASE 101 U/L (46-116); ALT/SGPT 38 U/L (7.0-40); AST/SGOT 28 U/L (<34); BILIRUBIN,TOTAL 0.5 MG/DL (0.3-1.2); BLOOD UREA NITROGEN 24 MG/DL (9-23); CALCIUM LEVEL 9.5 MG/DL (8.3-10.6); CARBON DIOXIDE LEVEL 25 MMOL/L (20-31); CHLORIDE LEVEL 106 MMOL/L (98-107); GLOMERULAR FILTRATION RATE > 60.0 (>32); GLUCOSE, FASTING 97 MG/DL (74-106); SODIUM LEVEL 141 MMOL/L (136-145); THYROID STIMULATING HORMONE 0.073 uIU/ML (0.55-4.78)
[2022-09-28 22:08] LABS: TOTAL PROTEIN 5.7 G/DL (5.7-8.2)
== END ==
PROVIDERS: ATTEND Internal Medicine
DX: I10 Essential (primary) hypertension (principal); M19.90 Unspecified osteoarthritis, unspecified site

== ENCOUNTER → 2023-01-04 | Outpatient (REF) ==
[~2023-01-04] MED LIST changes: +SIMV-254 PO; -ZOCO40TA PO
== END ==
PROVIDERS: ATTEND Internal Medicine
DX: R05.9 Cough, unspecified (principal)

== ENCOUNTER → 2023-02-01 | Outpatient (REF) | payer MEDICARE ==
[2023-02-01 09:27] LABS: HEMATOCRIT 37.5 % (36.0-47.0); MEAN CORPUSCULAR HEMOGLOBIN 29.7 pg (27.0-33.0); MEAN CORPUSCULAR VOLUME 92.8 fl (80.0-96.0); PLATELET COUNT, AUTOMATED 249 10^3/uL (150-450); RED BLOOD COUNT 4.04 10^6/uL (4.00-5.40); WHITE BLOOD COUNT 5.1 10^3/uL (4.0-10.0)
[2023-02-01 09:55] LABS: ALBUMIN 3.1 G/DL (3.2-5.2); ALKALINE PHOSPHATASE 102 U/L (46-116); ALT/SGPT 29 U/L (7.0-40); AST/SGOT 14 U/L (<34); BILIRUBIN,TOTAL 0.5 MG/DL (0.3-1.2); BLOOD UREA NITROGEN 22 MG/DL (9-23); CALCIUM LEVEL 9.8 MG/DL (8.3-10.6); CARBON DIOXIDE LEVEL 27 MMOL/L (20-31); CHLORIDE LEVEL 107 MMOL/L (98-107); CREATININE FOR GFR 0.74 MG/DL (0.55-1.30); GLOMERULAR FILTRATION RATE > 60.0 (>32); GLUCOSE, FASTING 99 MG/DL (74-106); POTASSIUM SERUM 3.9 MMOL/L (3.5-5.1); SODIUM LEVEL 141 MMOL/L (136-145); TOTAL PROTEIN 5.6 G/DL (5.7-8.2)
== END ==
PROVIDERS: ATTEND Internal Medicine
DX: I10 Essential (primary) hypertension (principal)

== ENCOUNTER → 2023-04-03 | Outpatient (REF) | payer MEDICARE | PROVIDERS: ATTEND Internal Medicine | DX: I10 Essential (primary) hypertension (principal) ==

== ENCOUNTER → 2023-05-29 | Outpatient (REF) | payer MEDICARE ==
[~2023-05-29] MED LIST changes: +CELE0.09 PO; -CELE1CAP9 PO
[2023-05-29 11:28] LABS: HEMATOCRIT 36.2 % (36.0-47.0); HEMOGLOBIN 11.5 g/dl (12.0-15.5); MEAN CORPUSCULAR HEMOGLOBIN 30.1 pg (27.0-33.0); MEAN CORPUSCULAR HGB CONC 31.8 g/dl (32.0-36.5); MEAN CORPUSCULAR VOLUME 94.8 fl (80.0-96.0); PLATELET COUNT, AUTOMATED 262 10^3/uL (150-450); RED BLOOD COUNT 3.82 10^6/uL (4.00-5.40); WHITE BLOOD COUNT 5.7 10^3/uL (4.0-10.0)
[2023-05-29 12:04] LABS: ALBUMIN 3.1 G/DL (3.2-5.2); ALKALINE PHOSPHATASE 97 U/L (46-116); ALT/SGPT 25 U/L (7.0-40); AST/SGOT 21 U/L (<34); BILIRUBIN,TOTAL 0.4 MG/DL (0.3-1.2); BLOOD UREA NITROGEN 20 MG/DL (9-23); CALCIUM LEVEL 8.9 MG/DL (8.3-10.6); CARBON DIOXIDE LEVEL 28 MMOL/L (20-31); CHLORIDE LEVEL 105 MMOL/L (98-107); CREATININE FOR GFR 0.94 MG/DL (0.55-1.30); GLOMERULAR FILTRATION RATE > 60.0 (>32); GLUCOSE, FASTING 169 MG/DL (74-106); POTASSIUM SERUM 3.9 MMOL/L (3.5-5.1); SODIUM LEVEL 140 MMOL/L (136-145); TOTAL PROTEIN 5.6 G/DL (5.7-8.2)
== END ==
PROVIDERS: ATTEND Internal Medicine
DX: I10 Essential (primary) hypertension (principal)

== ENCOUNTER → 2023-10-02 | Outpatient (REF) | payer MEDICARE ==
[~2023-10-02] MED LIST changes: -RISP-7 PO; +RISP0.5T82 PO
[2023-10-02 10:57] LABS: HEMOGLOBIN 11.4 g/dl (12.0-15.5); MEAN CORPUSCULAR HEMOGLOBIN 30.2 pg (27.0-33.0); MEAN CORPUSCULAR HGB CONC 31.7 g/dl (32.0-36.5); MEAN CORPUSCULAR VOLUME 95.5 fl (80.0-96.0); PLATELET COUNT, AUTOMATED 253 10^3/uL (150-450); RED BLOOD COUNT 3.77 10^6/uL (4.00-5.40); WHITE BLOOD COUNT 5.9 10^3/uL (4.0-10.0)
[2023-10-02 11:19] LABS: ALBUMIN 3.1 G/DL (3.2-5.2); BILIRUBIN,TOTAL 0.5 MG/DL (0.3-1.2); CALCIUM LEVEL 9.1 MG/DL (8.3-10.6); CREATININE FOR GFR 0.98 MG/DL (0.55-1.30); GLOMERULAR FILTRATION RATE 57.4 (>32); POTASSIUM SERUM 4.3 MMOL/L (3.5-5.1); THYROID STIMULATING HORMONE 0.216 uIU/ML (0.55-4.78); TOTAL PROTEIN 5.8 G/DL (5.7-8.2)
== END ==
PROVIDERS: ATTEND Internal Medicine
DX: I10 Essential (primary) hypertension (principal)

== ENCOUNTER → 2023-11-28 | Outpatient (REF) | payer MEDICARE | PROVIDERS: ATTEND Internal Medicine | DX: R05.9 Cough, unspecified (principal) ==

== ENCOUNTER → 2024-01-29 | Outpatient (REF) | payer MEDICARE, OTHER ==
[~2024-01-29] MED LIST changes: +FLUO-365 PO; -FLUO20CA22 PO; +IMIP1TAB3 PO; -IMIP25TA3 PO; -IMIP50TA3 PO; +IMIP50TA8 PO; +ONDA-282 PO; -ONDA4TAB6 PO
[2024-01-29 11:58] LABS: HEMATOCRIT 34.6 % (36.0-47.0); HEMOGLOBIN 11.2 g/dl (12.0-15.5); MEAN CORPUSCULAR HEMOGLOBIN 30.3 pg (27.0-33.0); MEAN CORPUSCULAR HGB CONC 32.4 g/dl (32.0-36.5); MEAN CORPUSCULAR VOLUME 93.5 fl (80.0-96.0); PLATELET COUNT, AUTOMATED 275 10^3/uL (150-450); WHITE BLOOD COUNT 6.8 10^3/uL (4.0-10.0)
[2024-01-29 12:22] LABS: CALCIUM LEVEL 9.2 MG/DL (8.3-10.6); CREATININE FOR GFR 0.96 MG/DL (0.55-1.30); GLOMERULAR FILTRATION RATE 58.8 (>32); POTASSIUM SERUM 4.4 MMOL/L (3.5-5.1)
== END ==
PROVIDERS: ATTEND Internal Medicine
DX: I10 Essential (primary) hypertension (principal)

== ENCOUNTER → 2024-04-01 | Outpatient (REF) | payer MEDICARE, OTHER | PROVIDERS: ATTEND Internal Medicine | DX: E03.9 Hypothyroidism, unspecified (principal) ==

== ENCOUNTER → 2024-06-03 | Outpatient (REF) | payer MEDICARE, OTHER ==
[~2024-06-03] MED LIST changes: -IMIP1TAB3 PO; +IMIP25TA13 PO; +IMIP50TA10 PO; -IMIP50TA8 PO
== END ==
PROVIDERS: ATTEND Physician Assistant
DX: R05.9 Cough, unspecified (principal)

== ENCOUNTER → 2024-06-04 | Outpatient (REF) | payer MEDICARE, OTHER | PROVIDERS: ATTEND Physician Assistant | DX: R05.9 Cough, unspecified (principal) ==

== ENCOUNTER → 2024-06-05 | Outpatient (REF) | payer MEDICARE, OTHER ==
[2024-06-05 10:14] LABS: HEMATOCRIT 36.9 % (36.0-47.0); HEMOGLOBIN 12.1 g/dl (12.0-15.5); MEAN CORPUSCULAR HEMOGLOBIN 30.6 pg (27.0-33.0); MEAN CORPUSCULAR HGB CONC 32.8 g/dl (32.0-36.5); MEAN CORPUSCULAR VOLUME 93.2 fl (80.0-96.0); PLATELET COUNT, AUTOMATED 282 10^3/uL (150-450); RED BLOOD COUNT 3.96 10^6/uL (4.00-5.40); WHITE BLOOD COUNT 7.3 10^3/uL (4.0-10.0)
[2024-06-05 10:47] LABS: BLOOD UREA NITROGEN 22 MG/DL (9-23); CALCIUM LEVEL 9.6 MG/DL (8.3-10.6); CARBON DIOXIDE LEVEL 29 MMOL/L (20-31); CHLORIDE LEVEL 105 MMOL/L (98-107); CREATININE FOR GFR 0.81 MG/DL (0.55-1.30); GLOMERULAR FILTRATION RATE > 60.0 (>32); GLUCOSE, FASTING 147 MG/DL (74-106); POTASSIUM SERUM 4.7 MMOL/L (3.5-5.1); SODIUM LEVEL 138 MMOL/L (136-145)
== END ==
PROVIDERS: ATTEND Internal Medicine
DX: I10 Essential (primary) hypertension (principal)

== ENCOUNTER → 2024-06-06 | Outpatient (REF) | payer MEDICARE, OTHER ==
[2024-06-06 13:36] LABS: HEMATOCRIT 34.7 % (36.0-47.0); HEMOGLOBIN 11.3 g/dl (12.0-15.5); MEAN CORPUSCULAR HEMOGLOBIN 29.9 pg (27.0-33.0); MEAN CORPUSCULAR HGB CONC 32.6 g/dl (32.0-36.5); MEAN CORPUSCULAR VOLUME 91.8 fl (80.0-96.0); PLATELET COUNT, AUTOMATED 265 10^3/uL (150-450); RED BLOOD COUNT 3.78 10^6/uL (4.00-5.40); WHITE BLOOD COUNT 6.3 10^3/uL (4.0-10.0)
[2024-06-06 14:17] LABS: BLOOD UREA NITROGEN 25 MG/DL (9-23); CALCIUM LEVEL 9.5 MG/DL (8.3-10.6); CARBON DIOXIDE LEVEL 28 MMOL/L (20-31); CHLORIDE LEVEL 103 MMOL/L (98-107); CREATININE FOR GFR 0.82 MG/DL (0.55-1.30); GLOMERULAR FILTRATION RATE > 60.0 (>32); GLUCOSE, FASTING 83 MG/DL (74-106); POTASSIUM SERUM 5.1 MMOL/L (3.5-5.1); SODIUM LEVEL 134 MMOL/L (136-145)
== END ==
PROVIDERS: ATTEND Physician Assistant
DX: R05.9 Cough, unspecified (principal); Z79.899 Other long term (current) drug therapy

== ENCOUNTER → 2024-06-06 | Outpatient (REF) | payer MEDICARE, OTHER | PROVIDERS: ATTEND Internal Medicine | DX: R05.9 Cough, unspecified (principal) ==

== ENCOUNTER 2024-08-23 12:56 | Observation (INO) | payer MEDICARE, OTHER ==
[~2024-08-23] VITALS: Ht 149.9 cm; Wt 70.4 kg
[2024-08-23] MEDS: ONDANSETRON 4MG 2ML VIAL IV ONE (13:38)
[2024-08-23 13:40] LABS: BASO # 0.1 10^3/uL (0.0-0.2); BASO % 0.7 % (0.0-1.0); EOS # 0.4 10^3/uL (0.0-0.5); EOS % 5.6 % (0.0-3.0); HEMOGLOBIN 11.8 g/dl (12.0-15.5); LYMPH # 1.7 10^3/uL (1.5-5.0); LYMPH % 23.8 % (24.0-44.0); MEAN CORPUSCULAR HEMOGLOBIN 30.1 pg (27.0-33.0); MEAN CORPUSCULAR HGB CONC 32.8 g/dl (32.0-36.5); MEAN CORPUSCULAR VOLUME 91.8 fl (80.0-96.0); MONO # 0.6 10^3/uL (0.0-0.8); MONO % 7.7 % (2.0-8.0); NEUTROPHILS # 4.6 10^3/uL (1.5-8.5); NEUTROPHILS % 62.1 % (36.0-66.0); PLATELET COUNT, AUTOMATED 278 10^3/uL (150-450); RED BLOOD COUNT 3.92 10^6/uL (4.00-5.40); WHITE BLOOD COUNT 7.3 10^3/uL (4.0-10.0)
[2024-08-23 14:04] LABS: LIPASE 32 U/L (12-53)
[2024-08-23 14:07] LABS: ALBUMIN 3.2 G/DL (3.2-5.2); ALKALINE PHOSPHATASE 103 U/L (35-104); ALT/SGPT 32 U/L (7.0-40); AST/SGOT 21 U/L (<34); BILIRUBIN,DIRECT < 0.1 MG/DL (<0.4); BILIRUBIN,TOTAL 0.3 MG/DL (0.3-1.2); BLOOD UREA NITROGEN 32 MG/DL (9-23); CALCIUM LEVEL 9.3 MG/DL (8.3-10.6); CARBON DIOXIDE LEVEL 28 MMOL/L (20-31); CHLORIDE LEVEL 103 MMOL/L (98-107); CREATININE FOR GFR 0.92 MG/DL (0.55-1.30); GLOMERULAR FILTRATION RATE > 60.0 (>32); GLUCOSE, FASTING 99 MG/DL (74-106); POTASSIUM SERUM 4.4 MMOL/L (3.5-5.1); SODIUM LEVEL 139 MMOL/L (136-145); TOTAL PROTEIN 6.5 G/DL (5.7-8.2)
[2024-08-23] MEDS: GLUCAGON INJ 1MG VIAL IV STA (14:50)
[2024-08-23] MEDS ORDERED: ACETAMINOPHEN *IV* 1,000 MG in IV 1 EA IV SCH ×2 (16:40→21:00)
[2024-08-23] MEDS ORDERED: KETOROLAC 30 MG/ML 1ML VIAL IV PRN ×2 (16:40)
[2024-08-23] MEDS ORDERED: GLUCAGON INJ 1MG VIAL SC PRN (16:50)
[2024-08-23] MEDS ORDERED: LR 1,000 ML IV SCH (16:50)
[2024-08-23] MEDS ORDERED: GLUCOSE 4 GM CHEW PO PRN (16:50)
[2024-08-23] MEDS ORDERED: ONDANSETRON 4MG 2ML VIAL IV PRN (16:50)
[2024-08-23] MEDS ORDERED: DEXTROSE 50% 50ML SYRINGE IV PRN (16:50)
[2024-08-23] MEDS ORDERED: SCOPOLAMINE 1MG TRANSDERMAL PATCH TOP SCH (17:00)
[2024-08-23] MEDS ORDERED: GLYCOPYRROLATE INJ 0.2 MG/ML 2 ML VIAL As Ordered ONE (17:33)
[2024-08-23] MEDS ORDERED: LIDOCAINE 2% 100MG/5ML SDV (FOR ANES.) As Ordered ONE (17:33)
[2024-08-23] MEDS ORDERED: propofoL 200 MG/20 ML VIAL As Ordered ONE (17:33)
[2024-08-23] MEDS ORDERED: fentaNYL 100 MCG/2 ML INJECTION As Ordered ONE (17:34)
[2024-08-23] MEDS ORDERED: METH2.5T48 PO (18:39)
[2024-08-23] MEDS ORDERED: RISP0.253 PO (18:39)
[2024-08-23] MEDS ORDERED: FOLI1TAB11 PO (18:39)
[2024-08-23] MEDS ORDERED: LEVO100T5 PO (18:39)
[2024-08-23] MEDS ORDERED: LEXA1TAB2 PO (18:39)
[2024-08-23] MEDS ORDERED: BUSP15TA47 PO (18:43)
[2024-08-23] MEDS ORDERED: CARV3.12 PO (18:43)
[2024-08-23] MEDS ORDERED: LORA1TAB23 PO (18:43)
[2024-08-23] MEDS ORDERED: WELLTAB38 PO (18:43)
[2024-08-23] MEDS ORDERED: HOME MED LIST COMPLETE! XX SCH (18:45)
[2024-08-23 19:43] VITALS: BP 136/66; TEMP 97.9; O2SAT 96
[2024-08-23] MEDS ORDERED: LORazepam 2 MG/ML 1ML VIAL IV SCH (21:00)
[2024-08-24] MEDS ORDERED: LEVOTHYROXINE 100MCG (0.1MG) 5ML SDV PF (SOLUTION FORM) IV SCH ×2 (09:00)
== END 2024-08-23 20:28 | disposition home or self-care (01) ==
LOC: M ED 12:56 → EDBD 12:56 → M SDC 12:57 → M MS5PR 12:58 → M ED 17:07 → M SDC 20:28
PROVIDERS: ADMIT Surgery; ATTEND Surgery
DX: K22.2 Esophageal obstruction (principal); R13.10 Dysphagia, unspecified; R11.10 Vomiting, unspecified; I10 Essential (primary) hypertension; E07.9 Disorder of thyroid, unspecified; F32.9 Major depressive disorder, single episode, unspecified; F41.1 Generalized anxiety disorder; M19.90 Unspecified osteoarthritis, unspecified site; E53.8 Deficiency of other specified B group vitamins; R73.01 Impaired fasting glucose; G31.84 Mild cognitive impairment of uncertain or unknown etiology; M06.9 Rheumatoid arthritis, unspecified; M54.9 Dorsalgia, unspecified; Z90.89 Acquired absence of other organs; Z98.49 Cataract extraction status, unspecified eye; Z90.721 Acquired absence of ovaries, unilateral; Z79.899 Other long term (current) drug therapy; Z79.890 Hormone replacement therapy; Z66 Do not resuscitate
CPT/HCPCS: 43247; 71045; 80047; 80048; 80076; 83690; 85025; 93041; 96374; 96375; 99285; G0378; J1596; J1610; J2405; J3010

== ENCOUNTER 2024-08-26 14:09 | Emergency (ER) | payer MEDICARE, OTHER ==
[~2024-08-26 14:09] MED LIST changes: +BUSP15TA47 PO; +CARV3.12 PO; +FOLI1TAB11 PO; +LEVO100T5 PO; +LEXA1TAB2 PO; +LORA1TAB23 PO; +METH2.5T48 PO; +RISP0.253 PO; +WELLTAB38 PO
[2024-08-26] MEDS ORDERED: ENSULIQ51 PO (15:03)
[2024-08-26] MEDS ORDERED: BISA10SU PR (15:05)
[2024-08-26] MEDS ORDERED: FLEEENE12 PR (15:06)
[2024-08-26] MEDS ORDERED: ACET1TAB55 PO (15:08)
[2024-08-26] MEDS ORDERED: MILKSUS3 PO (15:09)
[2024-08-26] MEDS ORDERED: HOME MED LIST COMPLETE! XX SCH (15:15)
[2024-08-26] MEDS: GLUCAGON INJ 1MG VIAL IV STA ×2 (15:33→19:34)
[2024-08-26 15:42] LABS: HEMATOCRIT 36.3 % (36.0-47.0); HEMOGLOBIN 12.1 g/dl (12.0-15.5); MEAN CORPUSCULAR HEMOGLOBIN 30.6 pg (27.0-33.0); MEAN CORPUSCULAR HGB CONC 33.3 g/dl (32.0-36.5); MEAN CORPUSCULAR VOLUME 91.7 fl (80.0-96.0); PLATELET COUNT, AUTOMATED 283 10^3/uL (150-450); RED BLOOD COUNT 3.96 10^6/uL (4.00-5.40); WHITE BLOOD COUNT 7.2 10^3/uL (4.0-10.0)
[2024-08-26 16:05] LABS: LIPASE 50 U/L (12-53)
[2024-08-26 16:07] LABS: ALBUMIN 3.5 G/DL (3.2-5.2); ALKALINE PHOSPHATASE 97 U/L (35-104); ALT/SGPT 26 U/L (7.0-40); AST/SGOT 26 U/L (<34); BILIRUBIN,DIRECT < 0.1 MG/DL (<0.4); BILIRUBIN,TOTAL 0.3 MG/DL (0.3-1.2); BLOOD UREA NITROGEN 38 MG/DL (9-23); CALCIUM LEVEL 9.4 MG/DL (8.3-10.6); CARBON DIOXIDE LEVEL 28 MMOL/L (20-31); CHLORIDE LEVEL 102 MMOL/L (98-107); CREATININE FOR GFR 0.99 MG/DL (0.55-1.30); GLOMERULAR FILTRATION RATE 56.6 (>32); GLUCOSE, FASTING 118 MG/DL (74-106); POTASSIUM SERUM 4.9 MMOL/L (3.5-5.1); SODIUM LEVEL 138 MMOL/L (136-145); TOTAL PROTEIN 6.4 G/DL (5.7-8.2)
[2024-08-26] MEDS: NS (Normal Saline) 0.9% 1,000 ML IV SCH (19:34)
[2024-08-26 19:45] VITALS: BP 132/73
[2024-08-26 20:15] VITALS: TEMP 98.3; O2SAT 95
== END 2024-08-26 20:32 | disposition short-term general hospital (02) ==
LOC: M ED 14:09
DX: T18.128A Food in esophagus causing other injury, initial encounter (principal); Q39.3 Congenital stenosis and stricture of esophagus; I10 Essential (primary) hypertension; E78.5 Hyperlipidemia, unspecified; Z79.1 Long term (current) use of non-steroidal anti-inflammatories (NSAID); Z79.899 Other long term (current) drug therapy
CPT/HCPCS: 76705; 80048; 80076; 83690; 85027; 96361; 96374; 96375; 99285; J1610

== ENCOUNTER → 2024-08-30 | Outpatient (REF) | payer MEDICARE, OTHER ==
[~2024-08-30] MED LIST changes: +ACET1TAB55 PO; +BISA10SU PR; +ENSULIQ51 PO; +FLEEENE12 PR; +MILKSUS3 PO
[2024-08-30 14:29] LABS: HEMOGLOBIN 12.7 g/dl (12.0-15.5); MEAN CORPUSCULAR HEMOGLOBIN 30.5 pg (27.0-33.0); MEAN CORPUSCULAR HGB CONC 32.6 g/dl (32.0-36.5); MEAN CORPUSCULAR VOLUME 93.8 fl (80.0-96.0); PLATELET COUNT, AUTOMATED 298 10^3/uL (150-450); RED BLOOD COUNT 4.16 10^6/uL (4.00-5.40); WHITE BLOOD COUNT 7.3 10^3/uL (4.0-10.0)
[2024-08-30 14:53] LABS: CALCIUM LEVEL 9.4 MG/DL (8.3-10.6); CREATININE FOR GFR 2.57 MG/DL (0.55-1.30); GLOMERULAR FILTRATION RATE 18.8 (>32); POTASSIUM SERUM 3.5 MMOL/L (3.5-5.1)
== END ==
PROVIDERS: ATTEND Physician Assistant
DX: I95.9 Hypotension, unspecified (principal)

== ENCOUNTER → 2024-09-02 | Outpatient (REF) | payer MEDICARE, OTHER ==
[2024-09-02 11:57] LABS: HEMATOCRIT 36.7 % (36.0-47.0); HEMOGLOBIN 11.9 g/dl (12.0-15.5); MEAN CORPUSCULAR HEMOGLOBIN 29.6 pg (27.0-33.0); MEAN CORPUSCULAR HGB CONC 32.4 g/dl (32.0-36.5); MEAN CORPUSCULAR VOLUME 91.3 fl (80.0-96.0); PLATELET COUNT, AUTOMATED 291 10^3/uL (150-450); RED BLOOD COUNT 4.02 10^6/uL (4.00-5.40); WHITE BLOOD COUNT 8.4 10^3/uL (4.0-10.0)
[2024-09-02 12:29] LABS: CALCIUM LEVEL 8.7 MG/DL (8.3-10.6); CREATININE FOR GFR 1.75 MG/DL (0.55-1.30); GLOMERULAR FILTRATION RATE 29.3 (>32); POTASSIUM SERUM 3.7 MMOL/L (3.5-5.1)
== END ==
PROVIDERS: ATTEND Physician Assistant
DX: I95.9 Hypotension, unspecified (principal)

== ENCOUNTER → 2024-09-03 | Outpatient (REF) | payer MEDICARE, OTHER | PROVIDERS: ATTEND Physician Assistant | DX: N17.9 Acute kidney failure, unspecified (principal); Z53.9 Procedure and treatment not carried out, unspecified reason ==

== ENCOUNTER → 2024-09-03 | Outpatient (REF) | payer MEDICARE, OTHER | PROVIDERS: ATTEND Internal Medicine | DX: R05.9 Cough, unspecified (principal) ==

== ENCOUNTER → 2024-09-04 | Outpatient (REF) | payer MEDICARE, OTHER ==
[2024-09-04 16:30] LABS: CALCIUM LEVEL 8.7 MG/DL (8.3-10.6); CREATININE FOR GFR 1.35 MG/DL (0.55-1.30); GLOMERULAR FILTRATION RATE 39.6 (>32); POTASSIUM SERUM 4.4 MMOL/L (3.5-5.1)
== END ==
PROVIDERS: ATTEND Physician Assistant
DX: E86.0 Dehydration (principal)

== ENCOUNTER → 2024-09-04 | Outpatient (REF) | payer MEDICARE, OTHER | LOC: M PLAIMG 07:43 | PROVIDERS: ATTEND Internal Medicine | DX: R05.9 Cough, unspecified (principal); E86.0 Dehydration ==

== ENCOUNTER → 2024-09-05 | Outpatient (CLI) | payer MEDICARE, OTHER | LOC: M RAD 09:27 | PROVIDERS: ATTEND Physician Assistant | DX: N17.9 Acute kidney failure, unspecified (principal) ==

== ENCOUNTER 2024-09-08 20:02 | Emergency (ER) | payer MEDICARE, OTHER ==
[2024-09-08 23:33] VITALS: BP 160/80; TEMP 97.6; O2SAT 97
== END 2024-09-08 23:34 | disposition home or self-care (01) ==
LOC: M ED 20:02 → EDBD 20:02 → M ED 23:34
DX: S06.0X0A Concussion without loss of consciousness, initial encounter (principal); Y92.9 Unspecified place or not applicable; Y93.9 Activity, unspecified; Y99.9 Unspecified external cause status; W06.XXXA Fall from bed, initial encounter; I10 Essential (primary) hypertension; Z88.1 Allergy status to other antibiotic agents; Z79.1 Long term (current) use of non-steroidal anti-inflammatories (NSAID); Z79.899 Other long term (current) drug therapy

== ENCOUNTER → 2024-09-09 | Outpatient (REF) | payer MEDICARE, OTHER ==
[2024-09-09 10:49] LABS: HEMATOCRIT 34.7 % (36.0-47.0); HEMOGLOBIN 11.1 g/dl (12.0-15.5); MEAN CORPUSCULAR HEMOGLOBIN 29.5 pg (27.0-33.0); MEAN CORPUSCULAR VOLUME 92.3 fl (80.0-96.0); PLATELET COUNT, AUTOMATED 277 10^3/uL (150-450); RED BLOOD COUNT 3.76 10^6/uL (4.00-5.40); WHITE BLOOD COUNT 6.9 10^3/uL (4.0-10.0)
[2024-09-09 11:25] LABS: BLOOD UREA NITROGEN 20 MG/DL (9-23); CALCIUM LEVEL 8.7 MG/DL (8.3-10.6); CARBON DIOXIDE LEVEL 26 MMOL/L (20-31); CHLORIDE LEVEL 108 MMOL/L (98-107); CREATININE FOR GFR 0.81 MG/DL (0.55-1.30); GLOMERULAR FILTRATION RATE > 60.0 (>32); GLUCOSE, FASTING 128 MG/DL (74-106); POTASSIUM SERUM 4.4 MMOL/L (3.5-5.1); SODIUM LEVEL 141 MMOL/L (136-145)
== END ==
PROVIDERS: ATTEND Physician Assistant
DX: N17.9 Acute kidney failure, unspecified (principal)

== ENCOUNTER → 2024-10-02 | Outpatient (CLI) | payer MEDICARE, OTHER ==
[~2024-10-02] MED LIST changes: +E-Z-GAS II EFFERVESCENT PACKET (SODIUM BICARB./CITRIC ACID/SIMETHICONE) As Ordered ONE; +E-Z-HD 98% w/w 340GM SUSP BTL As Ordered ONE; +E-Z-PAQUE 96% w/w SUSP 176GM BTL As Ordered ONE
== END ==
LOC: M RAD 09:27
PROVIDERS: ATTEND Physician Assistant
DX: R13.10 Dysphagia, unspecified (principal)

== ENCOUNTER → 2024-10-02 | Outpatient (REF) | payer MEDICARE, OTHER ==
[~2024-10-02] MED LIST changes: -E-Z-GAS II EFFERVESCENT PACKET (SODIUM BICARB./CITRIC ACID/SIMETHICONE) As Ordered ONE; -E-Z-HD 98% w/w 340GM SUSP BTL As Ordered ONE; -E-Z-PAQUE 96% w/w SUSP 176GM BTL As Ordered ONE
[2024-10-02 09:31] LABS: HEMATOCRIT 36.9 % (36.0-47.0); HEMOGLOBIN 12.1 g/dl (12.0-15.5); MEAN CORPUSCULAR HGB CONC 32.8 g/dl (32.0-36.5); MEAN CORPUSCULAR VOLUME 91.6 fl (80.0-96.0); PLATELET COUNT, AUTOMATED 323 10^3/uL (150-450); RED BLOOD COUNT 4.03 10^6/uL (4.00-5.40); WHITE BLOOD COUNT 7.4 10^3/uL (4.0-10.0)
[2024-10-02 09:54] LABS: BLOOD UREA NITROGEN 19 MG/DL (9-23); CALCIUM LEVEL 9.1 MG/DL (8.3-10.6); CARBON DIOXIDE LEVEL 27 MMOL/L (20-31); CHLORIDE LEVEL 105 MMOL/L (98-107); CREATININE FOR GFR 0.72 MG/DL (0.55-1.30); GLOMERULAR FILTRATION RATE > 60.0 (>32); GLUCOSE, FASTING 94 MG/DL (74-106); POTASSIUM SERUM 4.3 MMOL/L (3.5-5.1); SODIUM LEVEL 142 MMOL/L (136-145)
== END ==
PROVIDERS: ATTEND Internal Medicine
DX: I10 Essential (primary) hypertension (principal)

== ENCOUNTER → 2025-04-02 | Outpatient (REF) | payer MEDICARE, OTHER ==
[~2025-04-02] MED LIST changes: +HYDR12.510 PO; -HYDR12CA PO; -NYST-13 TOP; +NYST0.1C TOP
== END ==
PROVIDERS: ATTEND Internal Medicine
DX: E03.9 Hypothyroidism, unspecified (principal)

== ENCOUNTER → 2025-04-07 | Outpatient (REF) | payer MEDICARE, OTHER | PROVIDERS: ATTEND Internal Medicine | DX: I48.91 Unspecified atrial fibrillation (principal) ==

== ENCOUNTER → 2025-06-02 | Outpatient (REF) | payer MEDICARE, OTHER ==
[2025-06-02 14:13] LABS: PLATELET COUNT, AUTOMATED 285 10^3/uL (150-450)
[2025-06-02 14:41] LABS: CALCIUM LEVEL 9.1 MG/DL (8.3-10.6); CARBON DIOXIDE LEVEL 27.0 MMOL/L (20-31); CHLORIDE LEVEL 105.0 MMOL/L (98-107); CREATININE FOR GFR 0.89 MG/DL (0.55-1.30); GLOMERULAR FILTRATION RATE 62.7 (>32); POTASSIUM SERUM 4.6 MMOL/L (3.5-5.1); SODIUM LEVEL 142.0 MMOL/L (136-145)
== END ==
PROVIDERS: ATTEND Internal Medicine
DX: I10 Essential (primary) hypertension (principal)